=== PATIENT | female | born 1995 | race Caucasian/White ===

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

== ENCOUNTER 2017-03-19 17:32 | Emergency (ER) | payer OTHER ==
--- NOTE | 2017-03-19 18:18 | ED ---
General Adult HPI - General Chief complaint: Abdominal Pain Stated complaint: , ABDOMINAL PAIN Time Seen by Provider: 03/19/17 18:09 Source: patient, RN notes reviewed Mode of arrival: ambulatory Limitations: no limitations - History of Present Illness Initial comments: Patient 21-year-old female who is G 2, P0, approximately one month by last pressure cycle presented today with right-sided abdominal pain uncertain yesterday. Patient states pain comes and goes. It a /10. Patient denies any vaginal bleeding or discharge. Does admit to a miscarriage back in November 2016. Patient says she's not seen OB for this . She states that she is taking prenatals. Denies any complaints or symptoms. Patient denies any recent fever, chills, shortness of breath, chest pain, back pain, nausea or vomiting, numbness or tingling, dysuria or hematuria, constipation or diarrhea, headaches or visual changes, or any other complaints. - Related Data Home Medications Medication Instructions Recorded Confirmed Chewables 1 tab PO DAILY 11/24/16 03/19/17 Previous Rx's Medication Instructions Recorded Cephalexin [Keflex] 500 mg PO Q12HR 7 Days cap 03/19/17 Allergies Allergy/AdvReac Type Severity Reaction Status Date / Time sertraline [From Zoloft] AdvReac Severe Lethargy Verified 03/19/17 18:35 Review of Systems ROS Statement: Those systems with pertinent positive or pertinent negative responses have been documented in the HPI. ROS Other: All systems not noted in ROS Statement are negative. Past Medical History Past Medical History: No Reported History History of Any Multi-Drug Resistant Organisms: None Reported Past Surgical History: No Surgical Hx Reported Additional Past Surgical History / Comment(s): "lazy" eye surgery Past Psychological History: Anxiety, Depression Smoking Status: Current every day smoker Past Alcohol Use History: None Reported Past Drug Use History: None Reported General Exam - General Exam Comments Initial Comments: General: The patient is awake and alert, in no distress, and does not appear acutely ill. Eye: Pupils are equal, round and reactive to light, extra-ocular movements are intact. No nystagmus. There is normal conjunctiva bilaterally. No signs of icterus. Ears, nose, mouth and throat: There are moist mucous membranes and no oral lesions. Neck: The neck is supple, there is no tenderness or JVD. Cardiovascular: There is a regular rate and rhythm. No murmur, rub or gallop is appreciated. Respiratory: Lungs are clear to auscultation, respirations are non-labored, breath sounds are equal. No wheezes, stridor, rales, or rhonchi. Gastrointestinal: Soft, non-distended, non-tender abdomen without masses or organomegaly noted. There is no rebound or guarding present. No CVA tenderness. Bowel sounds are unremarkable. Musculoskeletal: Normal ROM, no tenderness. Strength 5/5. Sensation intact. Pulses equal bilaterally 2+. Neurological: A&O x 3. CN II-XII intact, There are no obvious motor or sensory deficits. Coordination appears grossly intact. Speech is normal. Skin: Skin is warm and dry and no rashes or lesions are noted. Psychiatric: Cooperative, appropriate mood & affect, normal judgment. Limitations: no limitations Course Vital Signs 03/19/17 17:38 Temperature 97.8 F Pulse Rate 89 Respiratory 20 Rate Blood Pressure 122/57 O2 Sat by Pulse 99 Oximetry Medical Decision Making - Medical Decision Making Patient reexamined at this time shows no signs of distress. She is resting comfortably. Patient's blood work has been reviewed unremarkable. Urinalysis does show positive nitrite will be started on antibiotics Keflex. Ultrasound shows additional sac. No heartbeat at this time. Patient last menstrual cycle measuring 4 weeks 5 days currently. At this time patient's abdomen soft nontender. No vaginal bleeding or discharge. Rh+. Patient will be discharged shortly on antibiotics for urinary tract infection advised follow-up over the next 2 days return here to the emergency room if any symptoms increase worsen or for any concerns. - Lab Data Result diagrams: 03/19/17 18:22 03/19/17 18:22 Lab Results 03/19/17 03/19/17 03/19/17 Range/Units 18:22 18:22 18:22 WBC 8.7 (4.0-11.0) k/uL RBC 4.29 (3.80-5.40) m/uL Hgb 12.4 (11.4-16.0) gm/dL Hct 37.2 (34.0-46.0) % MCV 86.6 (80.0-100.0) fL MCH 28.8 (25.0-35.0) pg MCHC 33.3 (31.0-37.0) g/dL RDW 13.2 (11.5-15.5) % Plt Count 257 (150-450) k/uL Neutrophils % 67 % Lymphocytes % 25 % Monocytes % 5 % Eosinophils % 1 % Basophils % 1 % Neutrophils # 5.9 (1.3-7.7) k/uL Lymphocytes # 2.2 (1.0-4.8) k/uL Monocytes # 0.4 (0-1.0) k/uL Eosinophils # 0.1 (0-0.7) k/uL Basophils # 0.1 (0-0.2) k/uL Sodium 137 (137-145) mmol/L Potassium 4.5 (3.5-5.1) mmol/L Chloride 103 (98-107) mmol/L Carbon Dioxide 22 (22-30) mmol/L Anion Gap 12 mmol/L BUN 12 (7-17) mg/dL Creatinine 0.55 (0.52-1.04) mg/dL Est GFR (MDRD) Af Amer >60 (>60 ml/min/1.73 sqM) Est GFR (MDRD) Non-Af >60 (>60 ml/min/1.73 sqM) Glucose 89 (74-99) mg/dL Calcium 9.8 (8.4-10.2) mg/dL Total Bilirubin 0.3 (0.2-1.3) mg/dL AST 22 (14-36) U/L ALT 26 (9-52) U/L Alkaline Phosphatase 74 (38-126) U/L Total Protein 7.4 (6.3-8.2) g/dL Albumin 4.5 (3.5-5.0) g/dL HCG, Quant 2160.2 mIU/mL Urine Color Urine Appearance (Clear) Urine pH (5.0-8.0) Ur Specific [place] (1.001-1.035) Urine Protein (Negative) Urine Glucose (UA) (Negative) Urine Ketones (Negative) Urine Blood (Negative) Urine Nitrite (Negative) Urine Bilirubin (Negative) Urine Urobilinogen (<2.0) mg/dL Ur Leukocyte Esterase (Negative) Urine WBC (0-5) /hpf Ur Squamous Epith Cells (0-4) /hpf Amorphous Sediment (None) /hpf Urine Bacteria (None) /hpf Urine Mucus (None) /hpf Blood Type O Positive Blood Type Recheck No 03/19/17 Range/Units 18:22 WBC (4.0-11.0) k/uL RBC (3.80-5.40) m/uL Hgb (11.4-16.0) gm/dL Hct (34.0-46.0) % MCV (80.0-100.0) fL MCH (25.0-35.0) pg MCHC (31.0-37.0) g/dL RDW (11.5-15.5) % Plt Count (150-450) k/uL Neutrophils % % Lymphocytes % % Monocytes % % Eosinophils % % Basophils % % Neutrophils # (1.3-7.7) k/uL Lymphocytes # (1.0-4.8) k/uL Monocytes # (0-1.0) k/uL Eosinophils # (0-0.7) k/uL Basophils # (0-0.2) k/uL Sodium (137-145) mmol/L Potassium (3.5-5.1) mmol/L Chloride (98-107) mmol/L Carbon Dioxide (22-30) mmol/L Anion Gap mmol/L BUN (7-17) mg/dL Creatinine (0.52-1.04) mg/dL Est GFR (MDRD) Af Amer (>60 ml/min/1.73 sqM) Est GFR (MDRD) Non-Af (>60 ml/min/1.73 sqM) Glucose (74-99) mg/dL Calcium (8.4-10.2) mg/dL Total Bilirubin (0.2-1.3) mg/dL AST (14-36) U/L ALT (9-52) U/L Alkaline Phosphatase (38-126) U/L Total Protein (6.3-8.2) g/dL Albumin (3.5-5.0) g/dL HCG, Quant mIU/mL Urine Color Yellow Urine Appearance Cloudy H (Clear) Urine pH 6.5 (5.0-8.0) Ur Specific [place] 1.022 (1.001-1.035) Urine Protein Negative (Negative) Urine Glucose (UA) Negative (Negative) Urine Ketones Negative (Negative) Urine Blood Negative (Negative) Urine Nitrite Positive H (Negative) Urine Bilirubin Negative (Negative) Urine Urobilinogen <2.0 (<2.0) mg/dL Ur Leukocyte Esterase Trace H (Negative) Urine WBC 5 (0-5) /hpf Ur Squamous Epith Cells 8 H (0-4) /hpf Amorphous Sediment Few H (None) /hpf Urine Bacteria Moderate H (None) /hpf Urine Mucus Occasional H (None) /hpf Blood Type Blood Type Recheck Disposition Clinical Impression: UTI (urinary tract infection), Disposition: HOME SELF-CARE Condition: Good Instructions: Urinary Tract Infection in Women (ED) Additional Instructions: Please use medication as discussed. Please follow-up with PRINCIPAL INVESTIGATOR/family doctor in the next 2 days of symptoms have not improved. Please return to emergency room if the symptoms increase or worsen or for any other concerns. Prescriptions: Cephalexin [Keflex] 500 mg PO Q12HR 7 Days cap Referrals: None,Stated [Primary Care Provider] - 1-2 days Time of Disposition: 19:40
[2017-03-19 18:34] LABS: Basophils # (A) 0.1 k/uL (0-0.2); Basophils % (A) 1 %; Eosinophils # (A) 0.1 k/uL (0-0.7); Eosinophils % (A) 1 %; HCT 37.2 % (34.0-46.0); HGB 12.4 gm/dL (11.4-16.0); Lymphocytes # (A) 2.2 k/uL (1.0-4.8); Lymphocytes % (A) 25 %; MCH 28.8 pg (25.0-35.0); MCHC 33.3 g/dL (31.0-37.0); MCV 86.6 fL (80.0-100.0); Mean Platelet Volume 7.5; Monocytes # (A) 0.4 k/uL (0-1.0); Monocytes % (A) 5 %; Neutrophils # (A) 5.9 k/uL (1.3-7.7); Neutrophils % (A) 67 %; Platelet Count 257 k/uL (150-450); RBC 4.29 m/uL (3.80-5.40); RDW 13.2 % (11.5-15.5); WBC 8.7 k/uL (4.0-11.0)
[2017-03-19 18:52] LABS: Amorphous Sediment,Urine Few /hpf; Appearance,Urine Cloudy (Clear); Bacteria,Urine Moderate /hpf; Bilirubin,Urine Negative (Negative); Blood,Urine Negative (Negative); Color,Urine Yellow; Glucose,Urine (UA) Negative (Negative); Ketones,Urine Negative (Negative); Leukocyte Esterase,Urine Trace (Negative); Mucus,Urine Occasional /hpf; Nitrite,Urine Positive (Negative); PH, Urine 6.5 (5.0-8.0); Protein,Urine Negative (Negative); Specific Gravity,Urine 1.022 (1.001-1.035); Squamous Epithelial Cell,Urine 8 /hpf (0-4); Urobilinogen,Urine <2.0 mg/dL (<2.0); WBC,Urine 5 /hpf (0-5)
[2017-03-19 18:53] LABS: ALT 26 U/L (9-52); AST 22 U/L (14-36); Albumin 4.5 g/dL (3.5-5.0); Alkaline Phosphatase 74 U/L (38-126); Anion Gap 12 mmol/L; Blood Urea Nitrogen 12 mg/dL (7-17); Calcium 9.8 mg/dL (8.4-10.2); Carbon Dioxide 22 mmol/L (22-30); Chloride 103 mmol/L (98-107); Glucose 89 mg/dL (74-99); Potassium 4.5 mmol/L (3.5-5.1); Sodium 137 mmol/L (137-145); Total Bilirubin 0.3 mg/dL (0.2-1.3); Total Protein 7.4 g/dL (6.3-8.2)
[2017-03-19 19:09] LABS: HCG,Quantitative Serum 2160.2 mIU/mL
--- NOTE | 2017-03-19 19:35 | US ---
EXAMINATION TYPE: US OB <=14 wks transvag DATE OF EXAM: 03/19/2017 COMPARISON: NONE CLINICAL HISTORY: Pain. Cramping EXAM PERFORMED: Transvaginal (TV) and Transabdominal (TA) EXAM MEASUREMENTS: GESTATIONAL AGE / DATING Physician Established: Not yet established Dates by LMP: (4 weeks/5 days) EDC: 11/21/2017 Dates by First Scan: No previous this is first scan Dates by Current Scan for: Unable to date by today's study MATERNAL ANATOMY Uterus: 6.5 x 3.5 x 4.8 cm Right Ovary: 2.2 x 1.5 x 1.7 cm Left Ovary: 2.5 x 2.0 x 2.2 cm Post CDS / Adnexa: wnl Presence of free fluid: no Presence of corpus luteal cyst: yes left ovary measuring 1.6 x 1.4 x 1.5 cm Presence of subchorionic bleed: no GESTATION / SURVEY CRL: Not seen at this time MSD: 0.5 cm; too small to calculate date at this time Yolk Sac (normal less than 6mm): Not seen IUP: No IUP seen at this time Date of LMP: 02/14/2017 Beta HcG (if available): Not available at this time IMPRESSION: GESTATIONAL SAC VISUALIZED MEASURING 0.5 CM TOO SMALL TO CALCULATE [place]. NO EMBRYONIC POLE SEEN AT THIS TIME. MEGHANA FROM LMP IS 11/21/2017 [id number].
[2017-03-19 20:17] VITALS: BP 105/51; PULSE 95; RESP 18; TEMP 98.1
== END 2017-03-19 20:17 | disposition home or self-care (01) ==
LOC: EC 17:32
DX: O23.40 Unspecified infection of urinary tract in pregnancy, unspecified trimester (principal); O36.0990 Maternal care for other rhesus isoimmunization, unspecified trimester, not applicable or unspecified; F17.200 Nicotine dependence, unspecified, uncomplicated; Z88.8 Allergy status to other drugs, medicaments and biological substances; Z3A.00 Weeks of gestation of pregnancy not specified; Z79.899 Other long term (current) drug therapy
CPT/HCPCS: 36415; 76801; 76817; 80053; 81001; 84702; 85025; 86900; 86901; 87077; 87086; 87186; 99284

== ENCOUNTER 2017-03-26 17:20 | Emergency (ER) | payer OTHER ==
[2017-03-26 17:25] VITALS: RESP 18
--- NOTE | 2017-03-26 17:46 | ED ---
Female Urogenital HPI - General Chief complaint: Vaginal Bleeding Stated complaint: Possible miscarriage 5 weeks Time Seen by Provider: 03/26/17 17:28 Source: patient, RN notes reviewed Mode of arrival: ambulatory Limitations: no limitations - History of Present Illness Initial comments: This is a 21-year-old female presents emergency Department chief complaint vaginal bleeding in early . Patient states that she is A1. Patient states she had a miscarriage in November. Patient was seen here 1 week ago for abdominal pain and had ultrasound showed possible early gestational sac. Patient To Have Urinary Tract Infection. She States She Finished 4 Days of Antibiotics and Ariton That She Was Breaking out from the antibiotics so she stopped. She denies any dysuria. She states that she noticed some bleeding when she wiped today states that slightly when she urinates but there is been no clots and tissue. She states she has upper abdominal cramping but no lower abdominal pain. Denies any headache, dizziness , chest pain, fever, chills, nausea, vomiting, diarrhea constipation. - Related Data Home Medications Medication Instructions Recorded Confirmed Chewables 1 tab PO DAILY 11/24/16 03/26/17 Ascorbic Acid [Vitamin C] 500 mg PO DAILY 03/26/17 03/26/17 Allergies Allergy/AdvReac Type Severity Reaction Status Date / Time sertraline [From Zoloft] Allergy Severe Rash/Hives Verified 03/26/17 18:28 cephalexin [From Keflex] Allergy Rash/Hives Verified 03/26/17 18:28 Review of Systems ROS Statement: Those systems with pertinent positive or pertinent negative responses have been documented in the HPI. ROS Other: All systems not noted in ROS Statement are negative. Past Medical History Past Medical History: No Reported History History of Any Multi-Drug Resistant Organisms: None Reported Past Surgical History: No Surgical Hx Reported Additional Past Surgical History / Comment(s): "lazy" eye surgery Past Psychological History: Anxiety, Depression Smoking Status: Former smoker Past Alcohol Use History: None Reported Past Drug Use History: None Reported General Exam Limitations: no limitations General appearance: alert, in no apparent distress Respiratory exam: Present: normal lung sounds bilaterally. Absent: respiratory distress, wheezes, rales, rhonchi, stridor Cardiovascular Exam: Present: regular rate, normal rhythm, normal heart sounds. Absent: systolic murmur, diastolic murmur, rubs, gallop, clicks GI/Abdominal exam: Present: soft, normal bowel sounds. Absent: distended, tenderness, guarding, rebound, rigid Back exam: Absent: CVA tenderness (R), CVA tenderness (L) Skin exam: Present: warm, dry, intact, normal color. Absent: rash Course Vital Signs 03/26/17 17:23 Temperature 99.4 F Pulse Rate 85 Respiratory 18 Rate Blood Pressure 117/60 O2 Sat by Pulse 99 Oximetry Medical Decision Making - Medical Decision Making 21-year-old female presented emergency from for vaginal bleeding early . Patient had repeat ultrasound today which showed empty uterus last ultrasound showed early gestational sac. Patient's hCG did double this is over one week. I did explain this concern for miscarriage as uterus is empty at this time. She'll need recheck hCG with her primary care physician or [facility]. She is scheduled to see Dr. Sherley Falcon. Patient does understand this most likely is miscarriage. TRANSIENT respiratory nausea. Patient's urinalysis was reviewed no evidence of urinary tract infection. - Lab Data Lab Results 03/26/17 03/26/17 Range/Units 17:34 17:34 HCG, Quant 4173.9 mIU/mL Urine Color Yellow Urine Appearance Clear (Clear) Urine pH 7.0 (5.0-8.0) Ur Specific [place] 1.016 (1.001-1.035) Urine Protein Negative (Negative) Urine Glucose (UA) Negative (Negative) Urine Ketones Negative (Negative) Urine Blood Moderate H (Negative) Urine Nitrite Negative (Negative) Urine Bilirubin Negative (Negative) Urine Urobilinogen <2.0 (<2.0) mg/dL Ur Leukocyte Esterase Negative (Negative) Urine RBC >182 H (0-5) /hpf Urine WBC 5 (0-5) /hpf Ur Squamous Epith Cells 1 (0-4) /hpf Amorphous Sediment Rare H (None) /hpf Urine Mucus Rare H (None) /hpf Disposition Clinical Impression: Threatened miscarriage in early Disposition: HOME SELF-CARE Condition: Stable Instructions: Threatened Miscarriage (ED) Additional Instructions: Please return to the Emergency Department if symptoms worsen or any other concerns. Referrals: None,Stated [Primary Care Provider] - 1-2 days Tamra Lepe DO [Doctor of Osteopathic Medicine] - 1-2 days Time of Disposition: 18:53
[2017-03-26 18:07] LABS: Amorphous Sediment,Urine Rare /hpf; Appearance,Urine Clear (Clear); Bilirubin,Urine Negative (Negative); Blood,Urine Moderate (Negative); Color,Urine Yellow; Glucose,Urine (UA) Negative (Negative); Ketones,Urine Negative (Negative); Leukocyte Esterase,Urine Negative (Negative); Mucus,Urine Rare /hpf; Nitrite,Urine Negative (Negative); Protein,Urine Negative (Negative); RBC,Urine >182 /hpf (0-5); Specific Gravity,Urine 1.016 (1.001-1.035); Squamous Epithelial Cell,Urine 1 /hpf (0-4); Urobilinogen,Urine <2.0 mg/dL (<2.0); WBC,Urine 5 /hpf (0-5)
--- NOTE | 2017-03-26 18:32 | US ---
EXAMINATION TYPE: US OB <=14 wks transvag DATE OF EXAM: 03/26/2017 COMPARISON: NONE CLINICAL HISTORY: Pain. Spotting EXAM PERFORMED: Transvaginal (TV) and Transabdominal (TA) EXAM MEASUREMENTS: GESTATIONAL AGE / DATING Physician Established: Not yet established Dates by LMP: (5 weeks/5 days) EDC: 11/21/2017 Dates by First Scan: (4 weeks/5 days) EDC: 11/21/2017 Dates by Current Scan for: No IUP seen at this time MATERNAL ANATOMY Uterus: 6.3 x 3.5 x 3.8cm Right Ovary: 2.0 x 1.9 x 1.5 cm Left Ovary: 2.4 x 1.5 x 2.1 cm Post CDS / Adnexa: wnl Presence of free fluid: no GESTATION / SURVEY Beta HcG (if available): Not available at this time No IUP seen at this time. IMPRESSION: Uterus is empty. No adnexal mass or free fluid. No evidence of a gestational sac.
[2017-03-26 18:57] VITALS: BP 122/64; PULSE 97; TEMP 98.1
== END 2017-03-26 18:57 | disposition home or self-care (01) ==
LOC: EC 17:20
DX: O20.0 Threatened abortion (principal); Z3A.01 Less than 8 weeks gestation of pregnancy; Z87.891 Personal history of nicotine dependence; Z79.899 Other long term (current) drug therapy; Z88.1 Allergy status to other antibiotic agents; Z88.8 Allergy status to other drugs, medicaments and biological substances
CPT/HCPCS: 36415; 76801; 76817; 81001; 84702; 87086; 99284

== ENCOUNTER → 2017-03-28 | Outpatient (CLI) | payer OTHER | END | disposition home or self-care (01) | LOC: LABWHC1 07:59 | PROVIDERS: ATTEND Physician Assistant | DX: Z32.01 Encounter for pregnancy test, result positive (principal) | CPT/HCPCS: 36415; 84702 ==

== ENCOUNTER 2017-03-29 15:38 | Emergency (ER) | payer OTHER ==
[2017-03-29 15:55] VITALS: BP 111/69; PULSE 85; RESP 18; TEMP 98.5
--- NOTE | 2017-03-29 16:19 | ED ---
Female Urogenital HPI - General Chief complaint: Vaginal Bleeding Stated complaint: Female Gu Time Seen by Provider: 03/29/17 16:06 Source: patient, RN notes reviewed Mode of arrival: ambulatory Limitations: no limitations - History of Present Illness Initial comments: This a 21-year-old female presents emergency Department with chief complaint of vaginal bleeding. Patient was seen here recently twice for bleeding early . Her last visit she was told that her hCG was not going up appropriately she was to have repeat hCG. She does not know the results of this. Patient states that she occasionally passes a clot but states the bleeding essentially has not worsened. She states she only changes her pad because she feels that she needs to she states that not filling a pad and she is not bleeding through any pads. Patient denies lightheadedness, dizziness, shortness breath, nausea, vomiting. Last Menstrual Period: 02/14/17 - Related Data Home Medications Medication Instructions Recorded Confirmed Chewables 1 tab PO DAILY 11/24/16 03/29/17 Ascorbic Acid [Vitamin C] 500 mg PO DAILY 03/26/17 03/29/17 Allergies Allergy/AdvReac Type Severity Reaction Status Date / Time sertraline [From Zoloft] Allergy Severe Rash/Hives Verified 03/29/17 16:06 cephalexin [From Keflex] Allergy Rash/Hives Verified 03/29/17 16:06 Review of Systems ROS Statement: Those systems with pertinent positive or pertinent negative responses have been documented in the HPI. ROS Other: All systems not noted in ROS Statement are negative. Past Medical History Past Medical History: No Reported History History of Any Multi-Drug Resistant Organisms: None Reported Past Surgical History: No Surgical Hx Reported Additional Past Surgical History / Comment(s): "lazy" eye surgery Past Psychological History: Anxiety, Depression Smoking Status: Former smoker Past Alcohol Use History: None Reported Past Drug Use History: None Reported General Exam Limitations: no limitations General appearance: alert, in no apparent distress Respiratory exam: Present: normal lung sounds bilaterally. Absent: respiratory distress, wheezes, rales, rhonchi, stridor Cardiovascular Exam: Present: regular rate, normal rhythm, normal heart sounds. Absent: systolic murmur, diastolic murmur, rubs, gallop, clicks GI/Abdominal exam: Present: soft, normal bowel sounds. Absent: distended, tenderness, guarding, rebound, rigid Back exam: Absent: CVA tenderness (R), CVA tenderness (L) Course Vital Signs 03/29/17 15:51 Temperature 98.5 F Pulse Rate 85 Respiratory 18 Rate Blood Pressure 111/69 O2 Sat by Pulse 100 Oximetry Medical Decision Making - Medical Decision Making 21-year-old female presented for vaginal bleeding in early . Patient' s hCG did drop from 4000-700. Patient is having active miscarriage she has very mild bleeding her vitals are stable. We did discuss this is normal to expect bleeding and clotting she is to follow-up with her [facility] and return for worsening symptoms. Disposition Clinical Impression: Miscarriage Disposition: HOME SELF-CARE Condition: Stable Instructions: Miscarriage (ED) Additional Instructions: Please return to the Emergency Department if symptoms worsen or any other concerns. Referrals: Rosalie Max MD [Primary Care Provider] - 1-2 days Time of Disposition: 16:19
== END 2017-03-29 16:36 | disposition home or self-care (01) ==
LOC: EC 15:38
DX: O03.9 Complete or unspecified spontaneous abortion without complication (principal); Z87.891 Personal history of nicotine dependence; Z88.8 Allergy status to other drugs, medicaments and biological substances; Z88.1 Allergy status to other antibiotic agents; Z3A.00 Weeks of gestation of pregnancy not specified; Z79.899 Other long term (current) drug therapy
CPT/HCPCS: 99283

== ENCOUNTER 2017-04-21 10:49 | Inpatient (IN) | payer OTHER, MEDICAID ==
--- NOTE | 2017-04-21 11:39 | ED ---
General Adult HPI - General Chief complaint: Psychiatric Symptoms Stated complaint: SUICIDAL Time Seen by Provider: 04/21/17 11:07 Source: patient, family, RN notes reviewed Mode of arrival: ambulatory Limitations: no limitations - History of Present Illness Initial comments: 21-year-old female presents to the emergency department with a chief complaint of suicidal ideation. Patient states that she's been having these thoughts for the past few days. Patient does admit to cutting her arms superficially. Patient is to cause the past but has never been this strong about them. She did recently have a miscarriage about one month ago and is having issues with the father. She states that she currently does not see a counselor or psychiatrist. There is been no other symptoms and the patient. She states or gallop. Has resolved. He has also resolved. Patient denies any recent fever, chills, shortness of breath, chest pain, back pain, abdominal pain, nausea vomiting, numbness or tingling, dysuria or hematuria, constipation or diarrhea, headaches or visual changes, or any other current symptoms. - Related Data Home Medications Medication Instructions Recorded Confirmed Chewables 1 tab PO DAILY 11/24/16 04/21/17 Ascorbic Acid [Vitamin C] 500 mg PO DAILY 03/26/17 04/21/17 Citalopram Hydrobromide [CeleXA] 20 mg PO DAILY PRN 04/21/17 04/21/17 Allergies Allergy/AdvReac Type Severity Reaction Status Date / Time sertraline [From Zoloft] Allergy Severe Rash/Hives Verified 04/21/17 11:20 cephalexin [From Keflex] Allergy Rash/Hives Verified 04/21/17 11:20 Review of Systems ROS Statement: Those systems with pertinent positive or pertinent negative responses have been documented in the HPI. ROS Other: All systems not noted in ROS Statement are negative. Past Medical History Past Medical History: No Reported History History of Any Multi-Drug Resistant Organisms: None Reported Past Surgical History: No Surgical Hx Reported Additional Past Surgical History / Comment(s): "lazy" eye surgery Past Psychological History: Anxiety, Depression Smoking Status: Former smoker Past Alcohol Use History: None Reported Past Drug Use History: None Reported General Exam - General Exam Comments Initial Comments: General: The patient is awake and alert, in no distress, and does not appear acutely ill. Eye: Pupils are equal, round. Ears, nose, mouth and throat: There are moist mucous membranes. Neck: The neck is supple, there is no tenderness. Cardiovascular: There is a regular rate and rhythm. No murmur, rub or gallop is appreciated. Respiratory: Lungs are clear to auscultation, respirations are non-labored, breath sounds are equal. No wheezes, stridor, rales, or rhonchi. Gastrointestinal: Soft, non-distended, non-tender abdomen without masses or organomegaly noted. There is no rebound or guarding present. No CVA tenderness. Bowel sounds are unremarkable. Back: There is no tenderness to palpation in the midline. There is no obvious deformity. No rashes noted. Musculoskeletal: Normal ROM, no tenderness, There is no pedal edema. There is no calf tenderness or swelling. Sensation intact. Pulses equal bilaterally 2+. Neurological: CN II-XII intact, There are no obvious motor or sensory deficits. Coordination appears grossly intact. Speech is normal. Skin: Skin is warm and dry and no rashes or lesions are noted. Patient appears to have superficial lacerations to bilateral forearms. Psychiatric: Cooperative, suicidal ideation, no homicidal ideation Limitations: no limitations Course Vital Signs 04/21/17 10:53 Temperature 99.2 F Pulse Rate 97 Respiratory 18 Rate Blood Pressure 124/66 O2 Sat by Pulse 99 Oximetry Medical Decision Making - Medical Decision Making 21-year-old female presents for suicidal ideation. This time the patient does not appear to be suffering from any acute medical emergencies. This time the patient is cleared to be evaluated by psychiatry. This time patient was evaluated. At this time patient's hCG does appear to be trending down as expected. At this time we did discuss follow-up for this. This time patient will be admitted for continued psychiatric care. - Lab Data Lab Results 04/21/17 04/21/17 Range/Units 11:35 11:35 HCG, Quant 11.2 mIU/mL Urine Opiates Screen Not Detected (NotDetected) Ur Oxycodone Screen Not Detected (NotDetected) Urine Methadone Screen Not Detected (NotDetected) Ur Propoxyphene Screen Not Detected (NotDetected) Ur Barbiturates Screen Not Detected (NotDetected) U Tricyclic Antidepress Not Detected (NotDetected) Ur Phencyclidine Scrn Not Detected (NotDetected) Ur Amphetamines Screen Not Detected (NotDetected) U Methamphetamines Scrn Not Detected (NotDetected) U Benzodiazepines Scrn Not Detected (NotDetected) Urine Cocaine Screen Not Detected (NotDetected) U Marijuana (THC) Screen Not Detected (NotDetected) Disposition Clinical Impression: Depression Disposition: TRANSFER TO PSYCH HOSP/UNIT Referrals: Rosalie aMx MD [Primary Care Provider] - 1-2 days Time of Disposition: 13:16
[2017-04-21 11:56] LABS: Amphetamine Screen,Urine Not Detected (NotDetected); Barbiturate Screen,Urine Not Detected (NotDetected); Benzodiazepines Screen,Urine Not Detected (NotDetected); Cocaine Screen,Urine Not Detected (NotDetected); Methadone Screen, Urine Not Detected (NotDetected); Opiate Screen,Urine Not Detected (NotDetected); Oxycodone Screen, Urine Not Detected (NotDetected); Phencyclidine Screen,Urine Not Detected (NotDetected); Tricyclic Antidepressant,Urine Not Detected (NotDetected); Urn Cannabinoid Scrn Not Detected (NotDetected)
[2017-04-21] MEDS ORDERED: ACETAMINOPHEN TAB 325 MG TAB PO PRN (13:39)
[2017-04-21] MEDS ORDERED: MAG HYDROX/AL HYDROX/SIMETH 30 ML CUP PO PRN (13:39)
[2017-04-21] MEDS ORDERED: MAGNESIUM HYDROXIDE 2,400 MG/10 ML CUP PO PRN (13:39)
[2017-04-21] MEDS: CITALOPRAM HYDROBROMIDE 10 MG TAB PO SCH (14:46)
[2017-04-21 15:45] VITALS: BMI 26.2
[2017-04-21] MEDS ORDERED: hydrOXYzine PAMOATE 25 MG CAP PO PRN (15:59)
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
--- NOTE | 2017-04-21 21:43 | P.MDCNMH ---
History of Present Illness H&P Date: 04/21/17 Chief Complaint: Suicidal ideation This is a 21-year-old female with a known history of depression was brought to the ER after she told that she had suicidal ideation toward her mother. Patient says that for the past few days she is receiving text messages asking her to . Patient states that she's been having these thoughts for the past few days. Patient does admit to cutting her arms superficially. She did recently have a miscarriage about one month ago and is having issues with the father. She states that she currently does not see a counselor or psychiatrist. There is been no other symptoms. Patient is supposed to take antidepressant medications but she has not been taking recently. Patient denies any recent fever, chills, shortness of breath, chest pain, back pain, abdominal pain, nausea vomiting, numbness or tingling, dysuria or hematuria, constipation or diarrhea, headaches or visual changes, or any other current symptoms. Review of Systems Constitutional: Patient denies any fever or chills . No generalized weakness or weight loss. Abdomen: Patient denied nausea vomiting and diarrhea and abdominal pain. Cardiovascular: Patient denies any chest pain or short of breath no palpitations. Respiratory: patient denied any cough is from production. No shortness of breath Neurologic: Patient denied any numbness or tingling headache. Musculoskeletal: Patient denies any complaints of joint swelling or deformity. Skin: Negative Psychiatric: Depressive Endocrine: No heat or cold intolerance. No recent weight gain. Genitourinary: No dysuria or hematuria. All other 14 point ROS negative except the above Past Medical History Past Medical History: No Reported History History of Any Multi-Drug Resistant Organisms: None Reported Past Surgical History: No Surgical Hx Reported Additional Past Surgical History / Comment(s): "lazy" eye surgery Past Psychological History: Anxiety, Depression Smoking Status: Former smoker Past Alcohol Use History: None Reported Past Drug Use History: None Reported Medications and Allergies Home Medications Medication Instructions Recorded Confirmed Type Chewables 1 tab PO DAILY 11/24/16 04/21/17 History Ascorbic Acid [Vitamin C] 500 mg PO DAILY 03/26/17 04/21/17 History Citalopram Hydrobromide [CeleXA] 20 mg PO DAILY PRN 04/21/17 04/21/17 History Allergies Allergy/AdvReac Type Severity Reaction Status Date / Time sertraline [From Zoloft] Allergy Severe Rash/Hives Verified 04/21/17 20:55 cephalexin [From Keflex] Allergy Rash/Hives Verified 04/21/17 20:55 Physical Exam Vitals: Vital Signs Temp Pulse Pulse Resp BP BP Pulse Ox 04/21/17 14:48 99.3 F 113 H 20 131/86 04/21/17 13:21 97.5 F L 104 H 18 159/72 99 04/21/17 10:53 99.2 F 97 18 124/66 99 Intake and Output 04/21/17 04/21/17 04/21/17 06:59 14:59 22:59 Other: Weight 61.008 kg Patient Weight 04/22/17 06:59 Weight 61.008 kg PHYSICAL EXAMINATION: Patient is lying in the bed comfortably, no acute distress, awake alert and oriented.. HEENT: Normocephalic. Neck is supple. Pupils reactive. Nostrils clear. Oral cavity is moist. Ears reveal no drainage. Neck reveals no JVD, carotid bruits, or thyromegaly. CHEST EXAMINATION: Trachea is central. Symmetrical expansion. Lung fung clear to auscultation and percussion. CARDIAC: Normal S1, S2 with no gallops. No murmurs ABDOMEN: Soft. Bowel sounds normal. No organomegaly. No abdominal bruits. Extremities: reveal no edema. No clubbing or cyanosis Neurologically awake, alert, oriented x3 with well-coordinated movements. No focal deficits noted Skin: No rash or skin lesions. Psychiatric: [id number]. Nonsuicidal currently. Musculoskeletal: No joint swelling or deformity. Normal range of motion. Cranial Nerve Examination - Cranial Nerves Cranial Nerve I- Olfactory: Intact Cranial Nerve II- Optic: Intact Cranial Nerve III- Oculomotor: Intact Cranial Nerve IV- Trochlear: Intact Cranial Nerve V- Trigeminal: Intact Cranial Nerve - Abducens: Intact Cranial Nerve VII- Facial: Intact Cranial Nerve VIII- Auditory: Intact Cranial Nerve IX- Glossopharyngeal: Intact Cranial Nerve X- Vagus: Intact Cranial Nerve XI- Accessory: Intact Cranial Nerve XII- Hypoglossal: Intact Assessment and Plan Assessment: Depression with suicidal ideation Hallucinations Noncompliant with antidepressant medications Recent miscarriage Plan: Patient will be continued on current antidepressant medication as per psychiatric recommendations. Will check CBC and BMP and TSH level. Follow up closely. Further recommendations based on the clinical course. Thank you for your consult
[2017-04-22] MEDS: CITALOPRAM HYDROBROMIDE 10 MG TAB PO SCH (09:04)
[2017-04-22 09:49] LABS: Basophils % (A) 0 %; Eosinophils % (A) 0 %; HCT 41.4 % (34.0-46.0); HGB 13.5 gm/dL (11.4-16.0); Lymphocytes # (A) 1.5 k/uL (1.0-4.8); Lymphocytes % (A) 13 %; MCH 29.6 pg (25.0-35.0); MCHC 32.5 g/dL (31.0-37.0); MCV 90.9 fL (80.0-100.0); Mean Platelet Volume 6.9; Monocytes # (A) 0.4 k/uL (0-1.0); Monocytes % (A) 3 %; Neutrophils # (A) 10.2 k/uL (1.3-7.7); Neutrophils % (A) 83 %; Platelet Count 246 k/uL (150-450); RBC 4.56 m/uL (3.80-5.40); RDW 13.3 % (11.5-15.5); WBC 12.3 k/uL (4.0-11.0)
[2017-04-22 10:11] LABS: ALT 23 U/L (9-52); AST 20 U/L (14-36); Albumin 4.8 g/dL (3.5-5.0); Alkaline Phosphatase 84 U/L (38-126); Anion Gap 13 mmol/L; Blood Urea Nitrogen 20 mg/dL (7-17); Calcium 10.4 mg/dL (8.4-10.2); Carbon Dioxide 24 mmol/L (22-30); Chloride 105 mmol/L (98-107); Cholesterol 140 mg/dL (<200); Glucose 93 mg/dL (74-99); HDL Cholesterol 48 mg/dL (40-60); LDL Cholesterol,Calculated 80 mg/dL (0-99); Potassium 4.4 mmol/L (3.5-5.1); Sodium 142 mmol/L (137-145); Total Bilirubin 0.6 mg/dL (0.2-1.3); Total Protein 7.8 g/dL (6.3-8.2); Triglycerides 59 mg/dL (<150)
[2017-04-22 16:36] LABS: Hemoglobin A1C 4.8 % (4.0-6.0)
--- NOTE | 2017-04-22 18:09 | P.PN ---
Progress Note - Text Progress Note Date: 04/22/17 Interval History: Patient is a 21-year-old female who was seen today and she reports that she is sleeping and eating well. She states that she has not had any thoughts of cutting herself and is feeling calm her. She states that she has been attending groups and they have been helpful. She states that she sometimes is anxious because she is missing being at home. She states that she is not having any suicidal thoughts. She states that she used Vistaril last evening with good results. Patient discussed that she has thought of plans to react to text messages instead of cutting and states that she will just ignore or block them. Mental Status: Appearance/Attitude: Patient is appropriately dressed, makes good eye contact and is cooperative. Behavior: Patient does not display any psychomotor agitation or retardation. Speech/Language: Patient's speech is spontaneous, of normal volume and she is coherent Thought Process: Patient was goal-directed there is no evidence of loose associations or flight of ideas. Thought Content: Patient denies any auditory or visual hallucinations and no delusions or paranoid ideation were elicited. Patient reports that she is no longer having thoughts of cutting herself states that she is feeling calm her. Patient states she is trying to develop better ways of coping with her anxiety as well as coping with text messages that are upsetting. Patient reported she is sleeping and eating well. Suicidal/Homicidal Ideation: Patient denies any current suicidal or homicidal ideation Sensorium/Cognition: Patient is alert and oriented to person, place, time and her recent and remote memory were grossly intact. Mood/Affect: Patient's mood is euthymic and her affect is appropriate Insight/Judgment: Patient's insight and judgment are fair Assessment: Patient reports that she is no longer feeling as overwhelmed, no longer having thoughts of cutting herself and states that she is trying to think of better coping skills when she is anxious or upset. Patient states she is not having any side effects from the medication. She is sleeping and eating well. Patient has been attending groups and participating and finds it helpful. Plan: Patient will continue on Celexa 10 mg to target her depression and anxiety as well as Vistaril 25 mg 3 times a day on an as-needed basis for anxiety. Patient reports that she is feeling calm her no longer having thoughts of cutting herself and she and I discussed discharge in the next several days and she was agreeable with this. Patient was also agreeable to follow-up counseling after discharge.
[2017-04-23] MEDS: CITALOPRAM HYDROBROMIDE 10 MG TAB PO SCH (08:56)
--- NOTE | 2017-04-23 16:15 | P.PN ---
Progress Note - Text Progress Note Date: 04/23/17 Interval History: Patient is a 21-year-old female who was seen today and she reports that she is feeling well. She states that she has no thoughts of cutting herself and no suicidal ideation. She states that she is attending groups and activities. She states that she slept well last evening. Patient states that everybody that is at home has blocked her male friend so that he can no longer get in touch with her. She states that she in the past would block him but he would get in touch with her through other friends. She was glad that this had been done. Patient reports that she is feeling calm her and has not been feeling anxious. She reports no side effects from the medication. She states that she has not requested any Vistaril since taking it on one occasion. Mental Status: Appearance/Attitude: Patient was neatly dressed, made good eye contact and was cooperative. Behavior: Patient did not exhibit any psychomotor agitation or retardation. Speech/Language: Patient's speech was spontaneous and of normal volume and she was coherent. Thought Process: Patient was goal-directed and there is no evidence of loose associations or flight of ideas. Thought Content: Patient denied any auditory or visual hallucinations no delusions or paranoid ideation were elicited. Patient states that she is feeling calm her, not anxious or overwhelmed. She states that she is sleeping and eating well. She reports no desire to cut Suicidal/Homicidal Ideation: Patient denies any current suicidal or homicidal ideation. Sensorium/Cognition: Patient is alert and oriented to person, place, and time and her recent and remote memory were grossly intact. Mood/Affect: Patient's mood is pleasant and her affect is appropriate. Insight/Judgment: Patient's insight and judgment are fair. Assessment: Patient reports doing better, feeling calm her and having no desire to cut. She states that she has been attending groups and activities and participating in them. She reports that at home everyone has blocked her male friend and she is relieved that she will allow longer be getting texts from him. Patient states that she is sleeping and eating well. She states she is not feeling anxious. Patient reported no side effects from the medication. Plan: Patient will continue on Celexa 10 mg to target her anxiety and depression. Patient and I discussed speaking with her [employer] ATTENDANT regarding control options. Patient and I also discussed discharge tomorrow and she was agreeable with this. Patient is eager to follow-up in outpatient counseling.
[2017-04-24 04:00] VITALS: BP 118/59; PULSE 80; RESP 16; TEMP 98.7
[2017-04-24] MEDS: CITALOPRAM HYDROBROMIDE 10 MG TAB PO SCH (09:11)
--- NOTE | 2017-04-24 12:11 | P.DS ---
Providers Date of admission: 04/21/17 13:21 Expected date of discharge: 04/24/17 Attending physician: Socorro Baez MD Consults: 04/21/17 13:39 Consult Physician Routine Consulting Provider: Jane Camarena Consult Reason/Comments: H&P Do you want consulting provider notified?: Yes Primary care physician: Winter Yao [facility] Course: Discharge Diagnosis: Adjustment disorder with mixed anxiety and depressed mood. Reason for Admission: Patient is a 21-year-old female who presented to the emergency room with her mother after stating that she wanted to and was cutting herself. Patient states that she was doing well until yesterday when she received text messages telling her to go kill herself and that the father of her last was glad that she had lost the baby and it would make everyone happy if she killed herself. She states that she also got a text message from the girlfriend of the father of her-2 pregnancies and told her to leave him alone. She stated that this made her think of wanting to but she began cutting herself because she likes the pain and not an attempt to kill herself. She states that she had been sleeping and eating okay until yesterday when she lost her appetite. Patient states that she did not want to go home from the emergency room because she feared she would begin cutting herself again. She states that she's been cutting herself on and off since the age of 18 and it's usually in relationship to some problems that she's had with boyfriends. Patient states that she had a miscarriage in November 2016 and in 03/29/2017 both pregnancies were from a male friend that she states she was not dating but they were good friends. Patient reports that she was on control but did not take it consistently. Patient reports that she attempted suicide about a year ago took an overdose was seen in the emergency room and discharged and thinks she was placed on Celexa at that time which she is only taken on and off on an as-needed basis. Patient states that she also was seen by a counselor in 2015 because she felt depressed and wasn't talking to people. Patient reports no inpatient psychiatric history. Patient does not endorse any symptoms of psychosis, dayron and states that she's been depressed in the past and when she becomes anxious she feels overwhelmed and this is also when she begins cutting. She states that she felt overwhelmed yesterday after receiving the text messages and begun cutting to alleviate the anxiety and because she enjoys the pain. Mental status on admission: Appearance/Attitude: Patient was neatly and appropriately dressed, made good eye contact and was cooperative. Behavior: Patient did not display any psychomotor agitation or retardation. Speech/Language: Patient's speech was slightly garbled due to a speech difficulty that she has had, spoke in a normal volume and she was coherent. Thought Process: Patient was goal-directed and was no evidence of loose associations or flight of ideas. Thought Content: Patient denied any auditory or visual hallucinations and no delusions or paranoid ideation were elicited. Patient reports that she was doing well until yesterday when she received text messages saying that she should go kill herself, that her friend was glad she had lost the baby as well as a girlfriend of her friends telling her to stay away from him. She states she became anxious and overwhelmed and began cutting herself. She states that she has been sleeping well and her appetite was well until yesterday when she was in eating that much. She reports that she was not attempting to cut herself to kill herself but she did not feel safe returning home. Suicidal/Homicidal Ideation: Patient denies any current suicidal or homicidal ideation. Sensorium/Cognition: Patient is alert and oriented to person, place, and time. Recent and remote memory are grossly intact. Mood/Affect: Patient's mood is slightly depressed and anxious and her affect is appropriate. Insight/Judgment: Patient's insight and judgment are fair. Hospital Course: Patient was admitted on a voluntary basis, placed on routine observation and routine laboratory studies as well as a medical consultation was obtained. Patient was also ordered group and activity therapy. Patient and I discussed the use of Celexa to assist with her symptoms of depression as well as her anxiety. Patient discussed that she cut herself when she felt overwhelmed and not in an attempt to commit suicide but because she liked the pain. Patient has a history of depression in the past and stated that she was agreeable to starting medication. Patient was begun on Celexa 10 mg in the morning and was also begun on Vistaril 25 mg 3 times a day and an as-needed basis for anxiety. Patient took the Vistaril on one occasion reported a good response. Patient did well on the unit participating in attending groups and activities and stated that she was no longer feeling depressed or overwhelmed. She reported that she wasn't feeling anxious and states that she has had no impulses to cut herself. She denied any suicidal ideation. A family meeting was held which went well and the patient reported that all of the people that live in her home have now blocked this male friend and she was glad that she would not have to deal with his texts her phone calls in the future. 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 Allergies sertraline [From Zoloft] Allergy (Severe, Verified 04/21/17 20:55) Rash/Hives cephalexin [From Keflex] Allergy (Verified 04/21/17 20:55) Rash/Hives Lab Results 04/21/17 04/21/17 04/22/17 Range/Units 11:35 11:35 09:30 WBC (4.0-11.0) k/uL RBC (3.80-5.40) m/uL Hgb (11.4-16.0) gm/dL Hct (34.0-46.0) % MCV (80.0-100.0) fL MCH (25.0-35.0) pg MCHC (31.0-37.0) g/dL RDW (11.5-15.5) % Plt Count (150-450) k/uL Neutrophils % % Lymphocytes % % Monocytes % % Eosinophils % % Basophils % % Neutrophils # (1.3-7.7) k/uL Lymphocytes # (1.0-4.8) k/uL Monocytes # (0-1.0) k/uL Eosinophils # (0-0.7) k/uL Basophils # (0-0.2) k/uL Sodium (137-145) mmol/L Potassium (3.5-5.1) mmol/L Chloride (98-107) mmol/L Carbon Dioxide (22-30) mmol/L Anion Gap mmol/L BUN (7-17) mg/dL Creatinine (0.52-1.04) mg/dL Est GFR (MDRD) Af Amer (>60 ml/min/1.73 sqM) Est GFR (MDRD) Non-Af (>60 ml/min/1.73 sqM) Glucose (74-99) mg/dL Estimated Ave Glu mg/dL 91 Hemoglobin A1c 4.8 (4.0-6.0) % Calcium (8.4-10.2) mg/dL Total Bilirubin (0.2-1.3) mg/dL AST (14-36) U/L ALT (9-52) U/L Alkaline Phosphatase (38-126) U/L Total Protein (6.3-8.2) g/dL Albumin (3.5-5.0) g/dL Triglycerides (<150) mg/dL Cholesterol (<200) mg/dL LDL Cholesterol, Calc (0-99) mg/dL HDL Cholesterol (40-60) mg/dL TSH (0.465-4.680) mIU/L HCG, Quant 11.2 mIU/mL Urine HCG, Qual (Not Detectd) Urine Opiates Screen Not Detected (NotDetected) Ur Oxycodone Screen Not Detected (NotDetected) Urine Methadone Screen Not Detected (NotDetected) Ur Propoxyphene Screen Not Detected (NotDetected) Ur Barbiturates Screen Not Detected (NotDetected) U Tricyclic Antidepress Not Detected (NotDetected) Ur Phencyclidine Scrn Not Detected (NotDetected) Ur Amphetamines Screen Not Detected (NotDetected) U Methamphetamines Scrn Not Detected (NotDetected) U Benzodiazepines Scrn Not Detected (NotDetected) Urine Cocaine Screen Not Detected (NotDetected) U Marijuana (THC) Screen Not Detected (NotDetected) 04/22/17 04/22/17 04/23/17 Range/Units 09:30 09:30 08:50 WBC 12.3 H (4.0-11.0) k/uL RBC 4.56 (3.80-5.40) m/uL Hgb 13.5 (11.4-16.0) gm/dL Hct 41.4 (34.0-46.0) % MCV 90.9 (80.0-100.0) fL MCH 29.6 (25.0-35.0) pg MCHC 32.5 (31.0-37.0) g/dL RDW 13.3 (11.5-15.5) % Plt Count 246 (150-450) k/uL Neutrophils % 83 % Lymphocytes % 13 % Monocytes % 3 % Eosinophils % 0 % Basophils % 0 % Neutrophils # 10.2 H (1.3-7.7) k/uL Lymphocytes # 1.5 (1.0-4.8) k/uL Monocytes # 0.4 (0-1.0) k/uL Eosinophils # 0.0 (0-0.7) k/uL Basophils # 0.0 (0-0.2) k/uL Sodium 142 (137-145) mmol/L Potassium 4.4 (3.5-5.1) mmol/L Chloride 105 (98-107) mmol/L Carbon Dioxide 24 (22-30) mmol/L Anion Gap 13 mmol/L BUN 20 H (7-17) mg/dL Creatinine 0.86 (0.52-1.04) mg/dL Est GFR (MDRD) Af Amer >60 (>60 ml/min/1.73 sqM) Est GFR (MDRD) Non-Af >60 (>60 ml/min/1.73 sqM) Glucose 93 (74-99) mg/dL Estimated Ave Glu mg/dL Hemoglobin A1c (4.0-6.0) % Calcium 10.4 H (8.4-10.2) mg/dL Total Bilirubin 0.6 (0.2-1.3) mg/dL AST 20 (14-36) U/L ALT 23 (9-52) U/L Alkaline Phosphatase 84 (38-126) U/L Total Protein 7.8 (6.3-8.2) g/dL Albumin 4.8 (3.5-5.0) g/dL Triglycerides 59 (<150) mg/dL Cholesterol 140 (<200) mg/dL LDL Cholesterol, Calc 80 (0-99) mg/dL HDL Cholesterol 48 (40-60) mg/dL TSH 0.983 (0.465-4.680) mIU/L HCG, Quant mIU/mL Urine HCG, Qual Not Detected (Not Detectd) Urine Opiates Screen (NotDetected) Ur Oxycodone Screen (NotDetected) Urine Methadone Screen (NotDetected) Ur Propoxyphene Screen (NotDetected) Ur Barbiturates Screen (NotDetected) U Tricyclic Antidepress (NotDetected) Ur Phencyclidine Scrn (NotDetected) Ur Amphetamines Screen (NotDetected) U Methamphetamines Scrn (NotDetected) U Benzodiazepines Scrn (NotDetected) Urine Cocaine Screen (NotDetected) U Marijuana (THC) Screen (NotDetected) Discharge Mental Status: [Appearance/Attitude: Patient is neatly and appropriately dressed, makes good eye contact and is cooperative. Behavior: Patient does not exhibit any psychomotor agitation or retardation. Speech/Language: Patient's speech is spontaneous, of normal volume and she is coherent. Thought Process: Patient is goal-directed and there is no evidence of loose associations or flight of ideas. Thought Content: Patient patient denies any auditory or visual hallucinations and no delusions or paranoid ideation were elicited. Patient reports she is no longer feeling overwhelmed, no longer having impulses to cut herself. She states that she is sleeping and eating well and she reported no anxiety. Suicidal/Homicidal Ideation: Patient denies any current suicidal or homicidal ideation. Sensorium/Cognition: Patient is alert and oriented to person, place, time and her recent and remote memory are grossly intact. Mood/Affect: Patient's mood was pleasant and her affect was appropriate. Insight/Judgment: Patient's insight and judgment are fair. Risk Assessment: Patient's risk for self-harm as low as patient has no prior history of suicide attempts and has no history of substance or alcohol use. Discharge Plan: Patient will return to home to live with her mother, she will continue on Celexa 10 mg in the morning and Vistaril 25 mg 3 times a day as needed for anxiety and will be given prescriptions for these. [facility] Patient discussed different coping strategies, stating that her male friend has been blocked from contacting her or anyone else in the house and she is relieved with this. Patient was encouraged to be compliant with medication and attend counseling sessions. 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 Patient Condition at Discharge: Stable Plan - Discharge Summary Discharge Rx Participant: No New Discharge Prescriptions: New Citalopram Hydrobromide [CeleXA] 10 mg PO DAILY #14 tab hydrOXYzine PAMOATE [Vistaril] 25 mg PO Q8HR PRN #20 cap PRN Reason: Anxiety Continue Chewables 1 tab PO DAILY Ascorbic Acid [Vitamin C] 500 mg PO DAILY Discontinued Citalopram Hydrobromide [CeleXA] 20 mg PO DAILY PRN PRN Reason: Anxiety Discharge Medication List Chewables 1 tab PO DAILY 11/24/16 [History] Ascorbic Acid [Vitamin C] 500 mg PO DAILY 03/26/17 [History] Citalopram Hydrobromide [CeleXA] 10 mg PO DAILY #14 tab 04/24/17 [Rx] hydrOXYzine PAMOATE [Vistaril] 25 mg PO Q8HR PRN #20 cap 04/24/17 [Rx] Follow up Appointment(s)/Referral(s): [facility] - 04/28/17 1:30 pm (Spoke with Liliane, has appointment with Noreen on 04/28/2017 at 1400, patient is to come 30 minutes early to go over paper work, 1330.) Rosalie Max MD [Primary Care Provider] - 1-2 days Discharge Disposition: HOME SELF-CARE
== END 2017-04-24 13:50 | disposition home or self-care (01) | DRG 882 ==
LOC: EC 10:49 → 3MHU 13:21
PROVIDERS: ADMIT Psychiatry & Neurology Psychiatry; ATTEND Psychiatry & Neurology Psychiatry
DX: F43.23 Adjustment disorder with mixed anxiety and depressed mood (principal); R45.851 Suicidal ideations; Z91.14 Patient's other noncompliance with medication regimen; X78.9XXA Intentional self-harm by unspecified sharp object, initial encounter; Z79.899 Other long term (current) drug therapy; Z87.891 Personal history of nicotine dependence; Z91.5 Personal history of self-harm; Z91.410 Personal history of adult physical and sexual abuse; Z88.1 Allergy status to other antibiotic agents; Z88.8 Allergy status to other drugs, medicaments and biological substances; Z81.8 Family history of other mental and behavioral disorders
CPT/HCPCS: 36415; 80053; 80061; 80306; 81025; 82075; 83036; 84443; 84702; 85025; 99285

== ENCOUNTER 2017-07-01 22:23 | Emergency (ER) | payer OTHER ==
[2017-07-01 22:31] VITALS: BP 124/62; PULSE 112; RESP 20; TEMP 98.1
[2017-07-02] MEDS ORDERED: SODIUM CHLORIDE 0.9% 1,000 ML IV STA ×2 (00:36→02:17)
[2017-07-02] MEDS ORDERED: METOCLOPRAMIDE 5 MG/ML 2 ML VIAL IVP STA (00:36)
[2017-07-02 01:09] LABS: Basophils % (A) 0 %; Eosinophils # (A) 0.1 k/uL (0-0.7); Eosinophils % (A) 1 %; HCT 31.4 % (34.0-46.0); HGB 11.5 gm/dL (11.4-16.0); Hyperchromasia Slight; Lymphocytes # (A) 1.8 k/uL (1.0-4.8); Lymphocytes % (A) 25 %; MCH 30.4 pg (25.0-35.0); MCHC 36.5 g/dL (31.0-37.0); MCV 83.2 fL (80.0-100.0); Mean Platelet Volume 6.5; Monocytes # (A) 0.4 k/uL (0-1.0); Monocytes % (A) 6 %; Neutrophils % (A) 67 %; Platelet Count 225 k/uL (150-450); RBC 3.77 m/uL (3.80-5.40); RDW 12.8 % (11.5-15.5); WBC 7.4 k/uL (4.0-11.0)
[2017-07-02 01:13] LABS: Appearance,Urine Clear (Clear); Bilirubin,Urine Negative (Negative); Blood,Urine Negative (Negative); Color,Urine Yellow; Glucose,Urine (UA) Negative (Negative); Ketones,Urine 4+ (Negative); Leukocyte Esterase,Urine Moderate (Negative); Mucus,Urine Occasional /hpf; Nitrite,Urine Negative (Negative); Protein,Urine 1+ (Negative); RBC,Urine 2 /hpf (0-5); Squamous Epithelial Cell,Urine 1 /hpf (0-4); WBC,Urine 6 /hpf (0-5)
[2017-07-02 01:18] LABS: ALT 11 U/L (9-52); AST 15 U/L (14-36); Alkaline Phosphatase 54 U/L (38-126); Anion Gap 16 mmol/L; Blood Urea Nitrogen 11 mg/dL (7-17); Calcium 9.4 mg/dL (8.4-10.2); Carbon Dioxide 19 mmol/L (22-30); Chloride 105 mmol/L (98-107); Glucose 90 mg/dL (74-99); Potassium 3.7 mmol/L (3.5-5.1); Sodium 140 mmol/L (137-145); Total Bilirubin 0.2 mg/dL (0.2-1.3); Total Protein 6.5 g/dL (6.3-8.2)
--- NOTE | 2017-07-02 01:30 | ED ---
General Adult HPI - General Chief complaint: Dizziness Stated complaint: lightheaded/vomited blood Time Seen by Provider: 07/02/17 00:30 Source: patient, RN notes reviewed Mode of arrival: ambulatory Limitations: no limitations - History of Present Illness Initial comments: Patient is a 21-year-old female who is 13 weeks by ultrasound presenting to the emergency room today with a chief complaint of feeling lightheaded and dizzy. Patient states that she's had some symptoms of nausea vomiting. She states that she has followed her OB was told that she had a urinary tract infection. She states she has not started the antibiotics she just picked him up today. Patient denies any other complaints or symptoms at this time. Patient denies any recent fever, chills, shortness of breath, chest pain, back pain, numbness or tingling, dysuria or hematuria, constipation or diarrhea, headaches or visual changes, or any other complaints. - Related Data Home Medications Medication Instructions Recorded Confirmed Chewables 1 tab PO DAILY 11/24/16 04/21/17 Ascorbic Acid [Vitamin C] 500 mg PO DAILY 03/26/17 04/21/17 Previous Rx's Medication Instructions Recorded Citalopram Hydrobromide [CeleXA] 10 mg PO DAILY #14 tab 04/24/17 hydrOXYzine PAMOATE [Vistaril] 25 mg PO Q8HR PRN #20 cap 04/24/17 Allergies Allergy/AdvReac Type Severity Reaction Status Date / Time sertraline [From Zoloft] Allergy Severe Rash/Hives Verified 07/01/17 22:31 cephalexin [From Keflex] Allergy Rash/Hives Verified 07/01/17 22:31 Review of Systems ROS Statement: Those systems with pertinent positive or pertinent negative responses have been documented in the HPI. ROS Other: All systems not noted in ROS Statement are negative. Past Medical History Past Medical History: No Reported History History of Any Multi-Drug Resistant Organisms: None Reported Past Surgical History: No Surgical Hx Reported Additional Past Surgical History / Comment(s): "lazy" eye surgery Past Psychological History: Anxiety, Depression Smoking Status: Former smoker Past Alcohol Use History: None Reported Past Drug Use History: None Reported General Exam - General Exam Comments Initial Comments: General: The patient is awake and alert, in no distress, and does not appear acutely ill. Eye: Pupils are equal, round and reactive to light, extra-ocular movements are intact. No nystagmus. There is normal conjunctiva bilaterally. No signs of icterus. Ears, nose, mouth and throat: There are moist mucous membranes and no oral lesions. Neck: The neck is supple, there is no tenderness or JVD. Cardiovascular: There is a regular rate and rhythm. No murmur, rub or gallop is appreciated. Respiratory: Lungs are clear to auscultation, respirations are non-labored, breath sounds are equal. No wheezes, stridor, rales, or rhonchi. Gastrointestinal: Soft, non-distended, non-tender abdomen without masses or organomegaly noted. There is no rebound or guarding present. No CVA tenderness. Musculoskeletal: Normal ROM, no tenderness. Strength 5/5. Sensation intact. Pulses equal bilaterally 2+. Neurological: A&O x 3. CN II-XII intact, There are no obvious motor or sensory deficits. Coordination appears grossly intact. Speech is normal. Skin: Skin is warm and dry and no rashes or lesions are noted. Psychiatric: Cooperative, appropriate mood & affect, normal judgment. Limitations: no limitations Course Vital Signs 07/01/17 22:29 Temperature 98.1 F Pulse Rate 112 H Respiratory 20 Rate Blood Pressure 124/62 O2 Sat by Pulse 99 Oximetry EKG Findings - EKG Comments: EKG Findings:: EKG performed at 2240: Shows sinus tachycardia 107 bpm CO interval 134 QRS 70. QT/QTC 328/437. No acute ST changes. Medical Decision Making - Medical Decision Making Patient's heart tones were in the 150s. Case discussed in detail with attending physician Dr. Constantino. Patient reexamined at this time shows no signs of distress resting comfortably. Patient feeling much better at this time. Patient's labs been reviewed. Patient's urinalysis shows 4+ ketones. Was discussed with patient about a second liter bolus here the emergency room in repeating her urine. She states she is very tired at this time. Her mother is at bedside stating that she needs to get home to get up to go to work soon. They state that the feeling better and would like to be discharged without second liter bolus or repeat labs they're advised follow-up with her PROMOTIONS ASSISTANT over the next 2 days. - Lab Data Result diagrams: 07/02/17 00:55 07/02/17 00:55 Lab Results 07/02/17 07/02/17 07/02/17 Range/Units 00:55 00:55 00:55 WBC 7.4 (4.0-11.0) k/uL RBC 3.77 L (3.80-5.40) m/uL Hgb 11.5 (11.4-16.0) gm/dL Hct 31.4 L (34.0-46.0) % MCV 83.2 (80.0-100.0) fL MCH 30.4 (25.0-35.0) pg MCHC 36.5 (31.0-37.0) g/dL RDW 12.8 (11.5-15.5) % Plt Count 225 (150-450) k/uL Neutrophils % 67 % Lymphocytes % 25 % Monocytes % 6 % Eosinophils % 1 % Basophils % 0 % Neutrophils # 5.0 (1.3-7.7) k/uL Lymphocytes # 1.8 (1.0-4.8) k/uL Monocytes # 0.4 (0-1.0) k/uL Eosinophils # 0.1 (0-0.7) k/uL Basophils # 0.0 (0-0.2) k/uL Hyperchromasia Slight Sodium 140 (137-145) mmol/L Potassium 3.7 (3.5-5.1) mmol/L Chloride 105 (98-107) mmol/L Carbon Dioxide 19 L (22-30) mmol/L Anion Gap 16 mmol/L BUN 11 (7-17) mg/dL Creatinine 0.50 L (0.52-1.04) mg/dL Est GFR (CKD-EPI)AfAm >90 (>60 ml/min/1.73 sqM) Est GFR (CKD-EPI)NonAf >90 (>60 ml/min/1.73 sqM) Glucose 90 (74-99) mg/dL Calcium 9.4 (8.4-10.2) mg/dL Total Bilirubin 0.2 (0.2-1.3) mg/dL AST 15 (14-36) U/L ALT 11 (9-52) U/L Alkaline Phosphatase 54 (38-126) U/L Total Protein 6.5 (6.3-8.2) g/dL Albumin 4.0 (3.5-5.0) g/dL Urine Color Yellow Urine Appearance Clear (Clear) Urine pH 6.0 (5.0-8.0) Ur Specific [place] 1.030 (1.001-1.035) Urine Protein 1+ H (Negative) Urine Glucose (UA) Negative (Negative) Urine Ketones 4+ H (Negative) Urine Blood Negative (Negative) Urine Nitrite Negative (Negative) Urine Bilirubin Negative (Negative) Urine Urobilinogen 2.0 (<2.0) mg/dL Ur Leukocyte Esterase Moderate H (Negative) Urine RBC 2 (0-5) /hpf Urine WBC 6 H (0-5) /hpf Ur Squamous Epith Cells 1 (0-4) /hpf Urine Mucus Occasional H (None) /hpf Disposition Clinical Impression: Hyperemesis gravidarum Disposition: HOME SELF-CARE Condition: Good Instructions: Hyperemesis Gravidarum (ED) Additional Instructions: Please follow-up with PROMOTIONS ASSISTANT in the next 1-2 days. Please return to emergency room if the symptoms increase or worsen or for any other concerns. Is patient prescribed a controlled substance at d/c from ED?: No Referrals: Rosalie Max MD [Primary Care Provider] - 1-2 days Time of Disposition: 02:22
[2017-07-02 02:29] LABS: HCG,Quantitative Serum 71607.8 mIU/mL
== END 2017-07-02 03:07 | disposition home or self-care (01) ==
LOC: EC 22:23
DX: O21.0 Mild hyperemesis gravidarum (principal); O99.89 Other specified diseases and conditions complicating pregnancy, childbirth and the puerperium; R42 Dizziness and giddiness; Z3A.13 13 weeks gestation of pregnancy; Z87.891 Personal history of nicotine dependence; Z79.899 Other long term (current) drug therapy; Z88.1 Allergy status to other antibiotic agents; Z88.8 Allergy status to other drugs, medicaments and biological substances; Z53.29 Procedure and treatment not carried out because of patient's decision for other reasons
CPT/HCPCS: 36415; 93005; 80053; 85025; 81001; 84702; 87086; 99284; 96374; 96361 ×2; J2765

== ENCOUNTER 2017-07-22 18:24 | Emergency (ER) | payer OTHER ==
[2017-07-22 18:30] VITALS: RESP 18
[2017-07-22] MEDS ORDERED: SODIUM CHLORIDE 0.9% 1,000 ML IV ONE (18:58)
--- NOTE | 2017-07-22 19:09 | ED ---
Female Urogenital HPI - General Chief complaint: Vaginal Bleeding Stated complaint: female gu, and bleeding Time Seen by Provider: 07/22/17 18:38 Source: patient Mode of arrival: ambulatory Limitations: no limitations - History of Present Illness Initial comments: Patient is a female who presents with a chief complaint of vaginal bleeding. Patient states that she is 16 weeks and 1 day . Patient states that she noticed vaginal bleeding today, she noticed a dime size area of blood on the sheets on her bed. Patient denies pain, she cannot identify an inciting incident. There are no aggravating or alleviating factors. Patient states she was seen by her UNDERWRITING OPERATIONS MANAGER today and states that cardiac Dopplers were within normal limits, no ultrasound was performed today. - Related Data Home Medications Medication Instructions Recorded Confirmed Chewables 1 tab PO DAILY 11/24/16 07/22/17 Allergies Allergy/AdvReac Type Severity Reaction Status Date / Time sertraline [From Zoloft] Allergy Severe Rash/Hives Verified 07/22/17 18:43 cephalexin [From Keflex] Allergy Rash/Hives Verified 07/22/17 18:43 Review of Systems ROS Statement: Those systems with pertinent positive or pertinent negative responses have been documented in the HPI. ROS Other: All systems not noted in ROS Statement are negative. Genitourinary: Reports: other (Vaginal bleeding) Past Medical History Past Medical History: No Reported History History of Any Multi-Drug Resistant Organisms: None Reported Past Surgical History: No Surgical Hx Reported Additional Past Surgical History / Comment(s): "lazy" eye surgery Past Psychological History: Anxiety, Depression Smoking Status: Former smoker Past Alcohol Use History: None Reported Past Drug Use History: None Reported General Exam Limitations: no limitations General appearance: alert, in no apparent distress Head exam: Present: atraumatic, normocephalic Eye exam: Present: normal appearance ENT exam: Present: normal exam, mucous membranes moist Neck exam: Present: normal inspection Respiratory exam: Present: normal lung sounds bilaterally. Absent: respiratory distress, wheezes Cardiovascular Exam: Present: regular rate, normal rhythm GI/Abdominal exam: Present: soft. Absent: distended, tenderness Rectal exam: Present: deferred Extremities exam: Present: normal inspection Back exam: Present: normal inspection Neurological exam: Present: alert, oriented X3 Psychiatric exam: Present: normal affect, normal mood Skin exam: Present: warm, dry, intact Course Vital Signs 07/22/17 18:28 Temperature 97.7 F Pulse Rate 71 Respiratory 18 Rate Blood Pressure 116/72 O2 Sat by Pulse 99 Oximetry Medical Decision Making - Medical Decision Making Patient presents at 16 weeks and 1 day with a chief complaint of vaginal bleeding. On initial evaluation, vital signs are stable, patient is in no acute distress. Patient to be evaluated with basic labs including RhoGam screen , and ultrasound of the pelvis. 8:18 PM lab evaluation of this patient is unremarkable. Rectal antibodies positive therefore the patient does not need RhoGAM. ultrasound shows normal anatomy and is otherwise unremarkable. I discussed the results with the patient , I instructed that she follow up with primary care and UNDERWRITING OPERATIONS MANAGER tomorrow. Patient was instructed to return to the emergency department if her symptoms worsen or change. - Lab Data Result diagrams: 07/22/17 19:08 07/22/17 19:08 Lab Results 07/22/17 07/22/17 07/22/17 Range/Units 19:08 19:08 19:08 WBC 8.4 (4.0-11.0) k/uL RBC 3.75 L (3.80-5.40) m/uL Hgb 11.6 (11.4-16.0) gm/dL Hct 32.7 L (34.0-46.0) % MCV 87.2 (80.0-100.0) fL MCH 31.0 (25.0-35.0) pg MCHC 35.5 (31.0-37.0) g/dL RDW 13.8 (11.5-15.5) % Plt Count 242 (150-450) k/uL Neutrophils % 79 % Lymphocytes % 16 % Monocytes % 4 % Eosinophils % 0 % Basophils % 0 % Neutrophils # 6.6 (1.3-7.7) k/uL Lymphocytes # 1.4 (1.0-4.8) k/uL Monocytes # 0.3 (0-1.0) k/uL Eosinophils # 0.0 (0-0.7) k/uL Basophils # 0.0 (0-0.2) k/uL Sodium 140 (137-145) mmol/L Potassium 3.8 (3.5-5.1) mmol/L Chloride 106 (98-107) mmol/L Carbon Dioxide 20 L (22-30) mmol/L Anion Gap 14 mmol/L BUN 7 (7-17) mg/dL Creatinine 0.36 L (0.52-1.04) mg/dL Est GFR (CKD-EPI)AfAm >90 (>60 ml/min/1.73 sqM) Est GFR (CKD-EPI)NonAf >90 (>60 ml/min/1.73 sqM) Glucose 94 (74-99) mg/dL Calcium 9.7 (8.4-10.2) mg/dL Blood Type O Positive Blood Type Recheck No Disposition Clinical Impression: Threatened Disposition: HOME SELF-CARE Condition: Good Instructions: Threatened Miscarriage (ED) Is patient prescribed a controlled substance at d/c from ED?: No Referrals: None,Stated [REFERRING] - 1-2 days
[2017-07-22 19:17] LABS: Basophils % (A) 0 %; Eosinophils % (A) 0 %; HCT 32.7 % (34.0-46.0); HGB 11.6 gm/dL (11.4-16.0); Lymphocytes # (A) 1.4 k/uL (1.0-4.8); Lymphocytes % (A) 16 %; MCHC 35.5 g/dL (31.0-37.0); MCV 87.2 fL (80.0-100.0); Mean Platelet Volume 7.1; Monocytes # (A) 0.3 k/uL (0-1.0); Monocytes % (A) 4 %; Neutrophils # (A) 6.6 k/uL (1.3-7.7); Neutrophils % (A) 79 %; Platelet Count 242 k/uL (150-450); RBC 3.75 m/uL (3.80-5.40); RDW 13.8 % (11.5-15.5); WBC 8.4 k/uL (4.0-11.0)
[2017-07-22 19:26] LABS: Anion Gap 14 mmol/L; Blood Urea Nitrogen 7 mg/dL (7-17); Calcium 9.7 mg/dL (8.4-10.2); Carbon Dioxide 20 mmol/L (22-30); Chloride 106 mmol/L (98-107); Glucose 94 mg/dL (74-99); Potassium 3.8 mmol/L (3.5-5.1); Sodium 140 mmol/L (137-145)
--- NOTE | 2017-07-22 20:03 | US ---
EXAMINATION TYPE: US OB >= 14 wk fetus Early second trimester DATE OF EXAM: 07/22/2017 COMPARISON: Prior first trimester ultrasound March 26, 2017 CLINICAL HISTORY: PainBleeding x 1 day, 3, miscarriage 2 TECHNIQUE: Transabdominal (TA) GESTATIONAL AGE / DATING Physician Established: (16 weeks/2 days) EDC: 01/04/2018 Dates by LMP: Unknown Dates by First Scan: This is 1st scan here Dates by Current Scan: (16 weeks/5 days) EDC: 01/01/2018 SURVEY IUP: Single PLACENTA: Posterior PREVIA: Marginal KERRI: 11.7 cm Normal CERVICAL LENGTH (transabdominal: norm > 3.0cm): 3.3 cm BIOMETRY PRESENTATION: Breech LIE: Transverse with head maternal right BPD: 3.5 cm 16 weeks / 6 days HC: 13.1 cm 16 weeks / 5 days AC: 10.7 cm 16 weeks / 4 days FL: 2.3 cm 16 weeks / 5 days ESTIMATED WEIGHT IN GRAMS: 165 grams ESTIMATED WEIGHT IN LBS/OZ: 0 lbs. 6 oz. WEIGHT PERCENTAGE BASED ON ESTABLISHED DATES: 69% HC/AC: 1.22 Normal FL/AC: 20.98 HEART RATE: 151 bpm RHYTHM: Normal Viable single IUP measuring 16 weeks 5 days with a heart rate of 151bpm placenta appears to be low-l perry. Single live intrauterine gestation is now present and is pole and gestational sac are seen. Yol k sac is not clearly identified. A breech presentation to fetus is currently present. No cervical eff acement is noted. Amniotic fluid index is within normal limits. There is no ultrasound evidence for p lacenta previa. biometry measurements are concordant felt within normal limits. IMPRESSION: As above, no ultrasound evidence for complication. Routine Anatomical obstetric survey recommended in approximately one month's time
[2017-07-22 20:39] VITALS: BP 108/53; PULSE 73; TEMP 97.9
== END 2017-07-22 20:38 | disposition home or self-care (01) ==
LOC: EC 18:24
DX: O20.0 Threatened abortion (principal); Z87.891 Personal history of nicotine dependence; Z79.899 Other long term (current) drug therapy; Z88.1 Allergy status to other antibiotic agents; Z88.8 Allergy status to other drugs, medicaments and biological substances; Z3A.16 16 weeks gestation of pregnancy
CPT/HCPCS: 36415; 76805; 80048; 85025; 86900; 86901; 99284

== ENCOUNTER 2017-09-28 18:08 | Outpatient (CLI) | payer OTHER ==
[2017-09-28 18:38] LABS: Appearance,Urine Cloudy (Clear); Bacteria,Urine Occasional /hpf; Bilirubin,Urine Negative (Negative); Blood,Urine Negative (Negative); Color,Urine Yellow; Glucose,Urine (UA) Negative (Negative); Ketones,Urine Negative (Negative); Leukocyte Esterase,Urine Large (Negative); Mucus,Urine Rare /hpf; Nitrite,Urine Negative (Negative); PH, Urine 7.5 (5.0-8.0); Protein,Urine Trace (Negative); Specific Gravity,Urine 1.017 (1.001-1.035); Squamous Epithelial Cell,Urine 10 /hpf (0-4); WBC,Urine 5 /hpf (0-5)
[2017-09-28] MEDS ORDERED: ACETAMINOPHEN TAB 325 MG TAB PO STA (18:47)
[2017-09-28 18:53] VITALS: BP 115/74; PULSE 105; RESP 17; TEMP 98.2
--- NOTE | 2017-10-07 12:43 | P.MSEPDOC ---
Presenting Problems - Arrival Data Date of Arrival on Unit: 09/28/17 Time of Arrival on Unit: 18:08 Mode of Transport: Ambulatory - Complaint OB-Reason for Admission/Chief Complaint: Pain Comment: pt rates headache a /10 for pain, headache/nausea/abd pain started at 1300 today, pt did not take any tylenol or try any interventions at home, pt is receiving care at [facility] with Dr Uzma abd soft and non tender Medical History - Information : 3 Para: 0 Term: 0 : 0 Abortions: Spontaneous or Elective: 2 Number of Living Children: 0 - Gestational Age Gestational Age by MEGHANA (wks/days): 25 Weeks and 6 Days Review of Systems - Review of Systems Constitutional: No problems Breast: No problems ENT: No problems Cardiovascular: No problems Respiratory: No problems Gastrointestinal: No problems Genitourinary: No problems Musculoskeletal: No problems Neurological: No problems Skin: No problems Vital Signs - Temperature Temperature: 98.2 F Temperature Source: Temporal Artery Scan - Pulse Right Brachial Pulse Rate: 105 Pulse Assessment Method: Automatic Cuff - Respirations Respiratory Rate: 17 Oxygen Delivery Method: Room Air O2 Sat by Pulse Oximetry: 98 - Blood Pressure Right Arm Blood Pressure: 115/74 Blood Pressure Mean: 87 Blood Pressure Source: Automatic Cuff Medical Screen Scoring (Pre) - Cervical Exam Dilation: 0 cm = 0 Effacement: Exam Deferred Membranes: Intact - Uterine Contractions Frequency: N/A Duration: N/A Intensity: N/A - Maternal Vital Signs Maternal Temperature: N/A Maternal Blood Pressure: N/A Signs of Preeclampsia: N/A Maternal Respirations: N/A - Pain Assessment Pain Location and Character: Head Pain Scale Used: Numeric (1 - 10) Pain Intensity: 6 Pain Management Goal: 3 Pain Description: *Acute, Aching Pain Radiation Location: none Pain Frequency: Frequent Pain Duration: 5 Pain Duration Units: Hours Pain Behavior: None Exhibited Pain Aggravating Factors: None Pharmacological Interventions: PRN Medication Non-Pharmacological Interventions: Darkened Room - Maternal Trauma Maternal Trauma: N/A - Assessment Baseline FHR: 145 Position: N/A Station: N/A - Total Score Total Score (Pre): 0 - Level of Risk Level of Risk: Low (0-5) Physician Notification (Pre) - Physician Notified Physician Notified Date: 09/28/17 Physician Notified Time: 18:45 Physician/Practitioner Notifed:: Dr Esqueda Spoke With: Dr Esqueda New Order Received: Yes (administer tylenol, oral hydrate, monitor pulse) Medical Screen Scoring (Post) - Cervical Exam Dilation: Exam Deferred Effacement: Exam Deferred Membranes: Intact - Uterine Contractions Frequency: N/A Duration: N/A Intensity: N/A - Maternal Vital Signs Maternal Temperature: N/A Maternal Blood Pressure: N/A Signs of Preeclampsia: N/A Maternal Respirations: N/A - Assessment Heart Rate: 145 Heart Rate - NICHD Category: Category I (Normal) = 0 NST: Reactive Position: N/A Station: N/A - Total Score Total Score (Post): 0 - Post Treatment Level of Risk Post Treatment Level of Risk: Low (0-5) Disposition - Disposition OB Disposition: Discharge to home Discharge Date: 09/28/17 Discharge Time: 19:32 I agree with the RN Medical Screening Exam: Yes Risk & Benefit of care provided described in d/c instruction: Yes Diagnosis: HEADACHE
== END 2017-09-28 19:32 | disposition home or self-care (01) ==
LOC: FBPOP 18:08
PROVIDERS: ATTEND Obstetrics & Gynecology
DX: O99.89 Other specified diseases and conditions complicating pregnancy, childbirth and the puerperium (principal); R51 Headache; Z3A.25 25 weeks gestation of pregnancy
CPT/HCPCS: 81001; 99213

== ENCOUNTER 2018-12-15 18:08 | Emergency (ER) | payer OTHER ==
[2018-12-15] MEDS ORDERED: ONDANSETRON 4 MG/2 ML VIAL IVP STA (18:29)
[2018-12-15] MEDS ORDERED: SODIUM CHLORIDE 0.9% 1,000 ML IV STA ×2 (18:29)
[2018-12-15] MEDS ORDERED: KETOROLAC 30 MG/ML 1 ML VIAL IVP STA (18:29)
[2018-12-15] MEDS ORDERED: PANTOPRAZOLE 40 MG/10 ML VIAL IVP STA (18:29)
--- NOTE | 2018-12-15 18:31 | ED ---
Abdominal Pain HPI - General Chief Complaint: Abdominal Pain Stated Complaint: nausea/side pain Time Seen by Provider: 12/15/18 18:22 Source: patient, RN notes reviewed, old records reviewed Mode of arrival: ambulatory Limitations: no limitations - History of Present Illness Initial Comments: Patient is a 23-year-old female she presents emergency department today with 3 days of nausea, midabdominal pain. Patient reports that she just got off her menstrual period yesterday. She states that seemed to be abnormal in light her for her typical period. Patient states that she's had no fevers or chills. No history of sick contacts Patient also reports history of some diarrhea. Patient states that she's had no dysuria. She denies any melena or hematochezia.Patient denies any recent fever, chills, shortness of breath, chest pain, back pain, numbness or tingling, dysuria or hematuria, constipation or diarrhea, headaches or visual changes, or any other current symptoms - Related Data Home Medications Medication Instructions Recorded Confirmed Chewables 1 tab PO DAILY 11/24/16 09/28/17 Previous Rx's Medication Instructions Recorded Famotidine [Pepcid] 20 mg PO BID #20 tablet 12/15/18 Ondansetron Odt [Zofran Odt] 4 mg PO Q8HR PRN #12 tab 12/15/18 Allergies Allergy/AdvReac Type Severity Reaction Status Date / Time sertraline [From Zoloft] Allergy Severe Rash/Hives Verified 12/15/18 18:21 cephalexin [From Keflex] Allergy Rash/Hives Verified 12/15/18 18:21 Review of Systems ROS Statement: Those systems with pertinent positive or pertinent negative responses have been documented in the HPI. ROS Other: All systems not noted in ROS Statement are negative. Past Medical History Past Medical History: No Reported History History of Any Multi-Drug Resistant Organisms: None Reported Past Surgical History: No Surgical Hx Reported Additional Past Surgical History / Comment(s): "lazy" eye surgery Past Psychological History: Anxiety, Depression Smoking Status: Former smoker Past Alcohol Use History: None Reported Past Drug Use History: None Reported General Exam - General Exam Comments Initial Comments: This is a 23-year-old female. Alert and oriented 3. No distress. Limitations: no limitations General appearance: alert, in no apparent distress Head exam: Present: atraumatic, normocephalic, normal inspection Eye exam: Present: normal appearance, PERRL, EOMI. Absent: scleral icterus, conjunctival injection, periorbital swelling ENT exam: Present: normal exam, mucous membranes moist Neck exam: Present: normal inspection. Absent: tenderness, meningismus, lymphadenopathy Respiratory exam: Present: normal lung sounds bilaterally. Absent: respiratory distress, wheezes, rales, rhonchi, stridor Cardiovascular Exam: Present: regular rate GI/Abdominal exam: Present: soft, normal bowel sounds. Absent: distended, tenderness, guarding, rebound, rigid Extremities exam: Present: normal inspection, full ROM, normal capillary refill. Absent: tenderness, pedal edema, joint swelling, calf tenderness Back exam: Present: normal inspection Neurological exam: Present: alert, oriented X3, CN II-XII intact Psychiatric exam: Present: normal affect, normal mood Skin exam: Present: warm, dry, intact, normal color. Absent: rash Course Vital Signs 12/15/18 12/15/18 12/15/18 18:18 19:21 20:24 Temperature 98.9 F 99.3 F Pulse Rate 74 81 70 Respiratory 20 17 18 Rate Blood Pressure 124/79 111/75 116/75 O2 Sat by Pulse 99 95 98 Oximetry Medical Decision Making - Medical Decision Making 200 female for abdominal pain. He was given IV fluids and labs obtained. Reviewed and unremarkable. She is given Protonix Toradol and Zofran. She has improvement of her symptoms. Discussed maybe epigastric pain is related to some gastritis. Discussed discharge and Patient with an acid medication and Zofran. All questions were answered return parameters were discussed. - Lab Data Result diagrams: 12/15/18 18:52 12/15/18 18:52 Lab Results 12/15/18 12/15/18 12/15/18 Range/Units 18:27 18:27 18:52 WBC (3.8-10.6) k/uL RBC (3.80-5.40) m/uL Hgb (11.4-16.0) gm/dL Hct (34.0-46.0) % MCV (80.0-100.0) fL MCH (25.0-35.0) pg MCHC (31.0-37.0) g/dL RDW (11.5-15.5) % Plt Count (150-450) k/uL Neutrophils % % Lymphocytes % % Monocytes % % Eosinophils % % Basophils % % Neutrophils # (1.3-7.7) k/uL Lymphocytes # (1.0-4.8) k/uL Monocytes # (0-1.0) k/uL Eosinophils # (0-0.7) k/uL Basophils # (0-0.2) k/uL Sodium 139 (137-145) mmol/L Potassium 4.1 (3.5-5.1) mmol/L Chloride 103 (98-107) mmol/L Carbon Dioxide 24 (22-30) mmol/L Anion Gap 12 mmol/L BUN 17 (7-17) mg/dL Creatinine 0.78 (0.52-1.04) mg/dL Est GFR (CKD-EPI)AfAm >90 (>60 ml/min/1.73 sqM) Est GFR (CKD-EPI)NonAf >90 (>60 ml/min/1.73 sqM) Glucose 90 (74-99) mg/dL Calcium 9.5 (8.4-10.2) mg/dL Total Bilirubin 0.2 (0.2-1.3) mg/dL AST 21 (14-36) U/L ALT 16 (9-52) U/L Alkaline Phosphatase 91 (38-126) U/L Total Protein 7.6 (6.3-8.2) g/dL Albumin 4.6 (3.5-5.0) g/dL Amylase 45 (30-110) U/L Lipase 84 (23-300) U/L Urine Color Yellow Urine Appearance Cloudy H (Clear) Urine pH 6.5 (5.0-8.0) Ur Specific [place] 1.030 (1.001-1.035) Urine Protein Trace H (Negative) Urine Glucose (UA) Negative (Negative) Urine Ketones Negative (Negative) Urine Blood Small H (Negative) Urine Nitrite Negative (Negative) Urine Bilirubin Negative (Negative) Urine Urobilinogen <2.0 (<2.0) mg/dL Ur Leukocyte Esterase Large H (Negative) Urine RBC 1 (0-5) /hpf Urine WBC 14 H (0-5) /hpf Ur Squamous Epith Cells 16 H (0-4) /hpf Amorphous Sediment Occasional H (None) /hpf Urine Bacteria Occasional H (None) /hpf Urine Mucus Rare H (None) /hpf Urine HCG, Qual Not Detected (Not Detectd) 12/15/18 Range/Units 18:52 WBC 7.2 (3.8-10.6) k/uL RBC 4.47 (3.80-5.40) m/uL Hgb 13.5 (11.4-16.0) gm/dL Hct 38.8 (34.0-46.0) % MCV 86.7 (80.0-100.0) fL MCH 30.2 (25.0-35.0) pg MCHC 34.8 (31.0-37.0) g/dL RDW 12.9 (11.5-15.5) % Plt Count 267 (150-450) k/uL Neutrophils % 64 % Lymphocytes % 27 % Monocytes % 5 % Eosinophils % 2 % Basophils % 1 % Neutrophils # 4.6 (1.3-7.7) k/uL Lymphocytes # 2.0 (1.0-4.8) k/uL Monocytes # 0.4 (0-1.0) k/uL Eosinophils # 0.1 (0-0.7) k/uL Basophils # 0.0 (0-0.2) k/uL Sodium (137-145) mmol/L Potassium (3.5-5.1) mmol/L Chloride (98-107) mmol/L Carbon Dioxide (22-30) mmol/L Anion Gap mmol/L BUN (7-17) mg/dL Creatinine (0.52-1.04) mg/dL Est GFR (CKD-EPI)AfAm (>60 ml/min/1.73 sqM) Est GFR (CKD-EPI)NonAf (>60 ml/min/1.73 sqM) Glucose (74-99) mg/dL Calcium (8.4-10.2) mg/dL Total Bilirubin (0.2-1.3) mg/dL AST (14-36) U/L ALT (9-52) U/L Alkaline Phosphatase (38-126) U/L Total Protein (6.3-8.2) g/dL Albumin (3.5-5.0) g/dL Amylase (30-110) U/L Lipase (23-300) U/L Urine Color Urine Appearance (Clear) Urine pH (5.0-8.0) Ur Specific [place] (1.001-1.035) Urine Protein (Negative) Urine Glucose (UA) (Negative) Urine Ketones (Negative) Urine Blood (Negative) Urine Nitrite (Negative) Urine Bilirubin (Negative) Urine Urobilinogen (<2.0) mg/dL Ur Leukocyte Esterase (Negative) Urine RBC (0-5) /hpf Urine WBC (0-5) /hpf Ur Squamous Epith Cells (0-4) /hpf Amorphous Sediment (None) /hpf Urine Bacteria (None) /hpf Urine Mucus (None) /hpf Urine HCG, Qual (Not Detectd) Disposition Clinical Impression: Abdominal pain Disposition: HOME SELF-CARE Condition: Good Instructions (If sedation given, give patient instructions): Abdominal Pain (ED) Additional Instructions: Please use medication as discussed. Please follow up with family doctor if symptoms have not improved over the next two days. Please return to the emergency room if your symptoms increase or worsen or for any other concerns. Prescriptions: Famotidine [Pepcid] 20 mg PO BID #20 tablet Ondansetron Odt [Zofran Odt] 4 mg PO Q8HR PRN #12 tab PRN Reason: Nausea Is patient prescribed a controlled substance at d/c from ED?: No Referrals: Rosalie Max MD [Primary Care Provider] - 1-2 days Time of Disposition: 20:42
[2018-12-15 18:46] LABS: Amorphous Sediment,Urine Occasional /hpf; Appearance,Urine Cloudy (Clear); Bacteria,Urine Occasional /hpf; Bilirubin,Urine Negative (Negative); Blood,Urine Small (Negative); Color,Urine Yellow; Glucose,Urine (UA) Negative (Negative); Ketones,Urine Negative (Negative); Leukocyte Esterase,Urine Large (Negative); Mucus,Urine Rare /hpf; Nitrite,Urine Negative (Negative); PH, Urine 6.5 (5.0-8.0); Protein,Urine Trace (Negative); RBC,Urine 1 /hpf (0-5); Squamous Epithelial Cell,Urine 16 /hpf (0-4); Urobilinogen,Urine <2.0 mg/dL (<2.0); WBC,Urine 14 /hpf (0-5)
[2018-12-15 19:07] LABS: Basophils % (A) 1 %; Eosinophils # (A) 0.1 k/uL (0-0.7); Eosinophils % (A) 2 %; HCT 38.8 % (34.0-46.0); HGB 13.5 gm/dL (11.4-16.0); Lymphocytes % (A) 27 %; MCH 30.2 pg (25.0-35.0); MCHC 34.8 g/dL (31.0-37.0); MCV 86.7 fL (80.0-100.0); Mean Platelet Volume 6.1; Monocytes # (A) 0.4 k/uL (0-1.0); Monocytes % (A) 5 %; Neutrophils # (A) 4.6 k/uL (1.3-7.7); Neutrophils % (A) 64 %; Platelet Count 267 k/uL (150-450); RBC 4.47 m/uL (3.80-5.40); RDW 12.9 % (11.5-15.5); WBC 7.2 k/uL (3.8-10.6)
[2018-12-15 19:22] VITALS: TEMP 99.3
[2018-12-15 19:23] LABS: ALT 16 U/L (9-52); AST 21 U/L (14-36); African American GFR (CKD) >90 (>60 ml/min/1.73 sqM); Albumin 4.6 g/dL (3.5-5.0); Alkaline Phosphatase 91 U/L (38-126); Amylase 45 U/L (30-110); Anion Gap 12 mmol/L; Blood Urea Nitrogen 17 mg/dL (7-17); Calcium 9.5 mg/dL (8.4-10.2); Carbon Dioxide 24 mmol/L (22-30); Chloride 103 mmol/L (98-107); Glucose 90 mg/dL (74-99); Potassium 4.1 mmol/L (3.5-5.1); Sodium 139 mmol/L (137-145); Total Bilirubin 0.2 mg/dL (0.2-1.3); Total Protein 7.6 g/dL (6.3-8.2)
--- NOTE | 2018-12-15 19:39 | XR ---
EXAMINATION TYPE: XR KUB DATE OF EXAM: 12/15/2018 COMPARISON: NONE HISTORY: Abdominal pain. Nausea. TECHNIQUE: 2 views upright FINDINGS: There is no sign of intestinal obstruction or pneumoperitoneum. Fecal pattern is normal. Th ere are no pathologic calcifications over the kidneys. Lung bases are clear. IMPRESSION: Nonacute abdomen.
[2018-12-15 20:26] VITALS: BP 116/75; PULSE 70; RESP 18
== END 2018-12-15 21:17 | disposition home or self-care (01) ==
LOC: EC 18:08
DX: R10.9 Unspecified abdominal pain (principal); R11.0 Nausea; Z88.1 Allergy status to other antibiotic agents; Z88.8 Allergy status to other drugs, medicaments and biological substances; Z87.891 Personal history of nicotine dependence
CPT/HCPCS: 36415; 80053; 82150; 83690; 85025; 81001; 81025; 74018; 99284; 96374; 96375 ×2; 96361 ×2; J2405; J1885; C9113

== ENCOUNTER 2019-10-20 12:08 | Emergency (ER) | payer OTHER ==
[2019-10-20 12:18] VITALS: TEMP 98.1
--- NOTE | 2019-10-20 12:39 | ED ---
General Adult HPI - General Chief complaint: Headache Stated complaint: sinus pain, 10wks preg cramping Time Seen by Provider: 10/20/19 12:22 Source: patient Mode of arrival: ambulatory Limitations: no limitations - History of Present Illness Initial comments: Dictation was produced using [employer] dictation software. please excuse any grammatical, word or spelling errors. This patient was cared for during a federal and state declared state of [facility] secondary to Covid 19 Chief Complaint: 23-year-old female allegedly 10 weeks presents with cough, anosmia and pelvic pain History of Present Illness: 23-year-old female, she has no significant past medical history. She presents today with 2-3 days of cough, mild dyspnea and anosmia. Patient also has some pelvic pain. Denies any fever, chills or night sweats. Patient states that pelvic pain is in her suprapubic area. She is allegedly 10 weeks . She does have care. She states that she did have an ultrasound performed at a different facility. Denies any fever, chills or night sweats. The ROS documented in this emergency department record has been reviewed and confirmed by me. Those systems with pertinent positive or negative responses clay ve been documented in the HPI. All other systems are other negative and/or noncontributory. PHYSICAL EXAM: General Impression: Alert and oriented x3, not in acute distress HEENT: Normocephalic atraumatic, extra-ocular movements intact, pupils equal and reactive to light bilaterally, mucous membranes moist. Cardiovascular: Heart regular rate and rhythm Chest: Able to complete full sentences, no retractions, no tachypnea, lungs clear to auscultation bilaterally Abdomen: abdomen soft, non-tender, non-distended, no organomegaly Musculoskeletal: Pulses present and equal in all extremities, no peripheral edema Motor: no focal deficits noted Neurological: CN II-XII grossly intact, no focal motor or sensory deficits noted Skin: Intact with no visualized rashes Psych: Normal affect and mood ED course: 23 yo female presents with URI-type symptoms and pelvic pain in . As upon arrival are within acceptable limits. Laboratory evaluation obtained. CBC, coag panel, metabolic panel is unremarkable. Ultrasound shows intrauterine measured at 10 weeks in 2 days heart rate of 174. Patient's chest x-ray is unremarkable. At this point patient's symptoms likely secondary to viral URI. She is told to follow-up with her [employer] this week. Return parameters discussed. Patient clear for discharge. - Related Data Home Medications Medication Instructions Recorded Confirmed diphenhydrAMINE HCL [Children's 12.5 mg PO Q4H PRN 10/20/19 10/20/19 Benadryl Allergy] Allergies Allergy/AdvReac Type Severity Reaction Status Date / Time sertraline [From Zoloft] Allergy Severe Rash/Hives Verified 10/20/19 13:02 cephalexin [From Keflex] Allergy Rash/Hives Verified 10/20/19 13:02 Review of Systems ROS Statement: Those systems with pertinent positive or pertinent negative responses have been documented in the HPI. ROS Other: All systems not noted in ROS Statement are negative. Past Medical History Past Medical History: No Reported History History of Any Multi-Drug Resistant Organisms: None Reported Past Surgical History: No Surgical Hx Reported Additional Past Surgical History / Comment(s): "lazy" eye surgery Past Psychological History: Anxiety, Depression Smoking Status: Never smoker Past Alcohol Use History: None Reported Past Drug Use History: None Reported General Exam Limitations: no limitations Course Vital Signs 10/20/19 12:14 Temperature 98.1 F Pulse Rate 95 Respiratory 16 Rate Blood Pressure 120/78 O2 Sat by Pulse 99 Oximetry Medical Decision Making - Lab Data Result diagrams: 10/20/19 12:59 10/20/19 12:59 Lab Results 10/20/19 10/20/19 10/20/19 Range/Units 12:59 12:59 12:59 WBC 7.4 (3.8-10.6) k/uL RBC 4.65 (3.80-5.40) m/uL Hgb 13.3 (11.4-16.0) gm/dL Hct 40.4 (34.0-46.0) % MCV 86.9 (80.0-100.0) fL MCH 28.6 (25.0-35.0) pg MCHC 32.9 (31.0-37.0) g/dL RDW 12.2 (11.5-15.5) % Plt Count 219 (150-450) k/uL Neutrophils % 76 % Lymphocytes % 17 % Monocytes % 5 % Eosinophils % 1 % Basophils % 0 % Neutrophils # 5.7 (1.3-7.7) k/uL Lymphocytes # 1.2 (1.0-4.8) k/uL Monocytes # 0.4 (0-1.0) k/uL Eosinophils # 0.0 (0-0.7) k/uL Basophils # 0.0 (0-0.2) k/uL PT 9.9 (9.0-12.0) sec INR 0.9 (<1.2) APTT 26.6 (22.0-30.0) sec Sodium 136 L (137-145) mmol/L Potassium 4.3 (3.5-5.1) mmol/L Chloride 104 (98-107) mmol/L Carbon Dioxide 21 L (22-30) mmol/L Anion Gap 11 mmol/L BUN 7 (7-17) mg/dL Creatinine 0.40 L (0.52-1.04) mg/dL Est GFR (CKD-EPI)AfAm >90 (>60 ml/min/1.73 sqM) Est GFR (CKD-EPI)NonAf >90 (>60 ml/min/1.73 sqM) Glucose 86 (74-99) mg/dL Calcium 9.7 (8.4-10.2) mg/dL Blood Type Blood Type Recheck Bld Type Recheck Status Antibody Screen Spec Expiration Date 10/20/19 Range/Units 13:25 WBC (3.8-10.6) k/uL RBC (3.80-5.40) m/uL Hgb (11.4-16.0) gm/dL Hct (34.0-46.0) % MCV (80.0-100.0) fL MCH (25.0-35.0) pg MCHC (31.0-37.0) g/dL RDW (11.5-15.5) % Plt Count (150-450) k/uL Neutrophils % % Lymphocytes % % Monocytes % % Eosinophils % % Basophils % % Neutrophils # (1.3-7.7) k/uL Lymphocytes # (1.0-4.8) k/uL Monocytes # (0-1.0) k/uL Eosinophils # (0-0.7) k/uL Basophils # (0-0.2) k/uL PT (9.0-12.0) sec INR (<1.2) APTT (22.0-30.0) sec Sodium (137-145) mmol/L Potassium (3.5-5.1) mmol/L Chloride (98-107) mmol/L Carbon Dioxide (22-30) mmol/L Anion Gap mmol/L BUN (7-17) mg/dL Creatinine (0.52-1.04) mg/dL Est GFR (CKD-EPI)AfAm (>60 ml/min/1.73 sqM) Est GFR (CKD-EPI)NonAf (>60 ml/min/1.73 sqM) Glucose (74-99) mg/dL Calcium (8.4-10.2) mg/dL Blood Type O Positive Blood Type Recheck O Pos Bld Type Recheck Status No Antibody Screen NEGATIVE Spec Expiration Date 10/23/20192319 Disposition Clinical Impression: Pelvic pain, Cough Disposition: HOME SELF-CARE Instructions (If sedation given, give patient instructions): Upper Respiratory Infection (ED), Pelvic Pain in Women (ED) Is patient prescribed a controlled substance at d/c from ED?: No Referrals: Lucius Mitchell DO [Doctor of Osteopathic Medicine] - 1-2 days Time of Disposition: 15:43
[2019-10-20 14:04] LABS: Basophils % (A) 0 %; Eosinophils % (A) 1 %; HCT 40.4 % (34.0-46.0); HGB 13.3 gm/dL (11.4-16.0); Lymphocytes # (A) 1.2 k/uL (1.0-4.8); Lymphocytes % (A) 17 %; MCH 28.6 pg (25.0-35.0); MCHC 32.9 g/dL (31.0-37.0); MCV 86.9 fL (80.0-100.0); Mean Platelet Volume 7.4; Monocytes # (A) 0.4 k/uL (0-1.0); Monocytes % (A) 5 %; Neutrophils # (A) 5.7 k/uL (1.3-7.7); Neutrophils % (A) 76 %; Platelet Count 219 k/uL (150-450); RBC 4.65 m/uL (3.80-5.40); RDW 12.2 % (11.5-15.5); WBC 7.4 k/uL (3.8-10.6)
[2019-10-20 14:09] LABS: INR 0.9 (<1.2); Partial Thromboplastin Time 26.6 sec (22.0-30.0); Prothrombin Time 9.9 sec (9.0-12.0)
[2019-10-20 14:13] LABS: African American GFR (CKD) >90 (>60 ml/min/1.73 sqM); Anion Gap 11 mmol/L; Blood Urea Nitrogen 7 mg/dL (7-17); Calcium 9.7 mg/dL (8.4-10.2); Carbon Dioxide 21 mmol/L (22-30); Chloride 104 mmol/L (98-107); Glucose 86 mg/dL (74-99); Non-African American GFR(CKD) >90 (>60 ml/min/1.73 sqM); Sodium 136 mmol/L (137-145)
--- NOTE | 2019-10-20 14:15 | XR ---
EXAMINATION TYPE: XR chest 1V portable DATE OF EXAM: 10/20/2019 CLINICAL HISTORY: Cough TECHNIQUE: Upright portable view of the chest obtained COMPARISON: None FINDINGS: The cardiomediastinal silhouette is within normal limits for size. Pulmonary vasculature i s normal. There is a summation of shadows of the left ribs and left basilar pulmonary markings, that likely do not represent true opacity. There is no focal air space opacity, pleural effusion, or pneum othorax seen. The osseous structures are intact. IMPRESSION: No definitive focal opacity.
[2019-10-20 14:19] LABS: Potassium 4.3 mmol/L (3.5-5.1)
--- NOTE | 2019-10-20 15:32 | US ---
EXAMINATION TYPE: Transabdominal DATE OF EXAM: 10/20/2019 2:47 PM COMPARISON: NONE CLINICAL HISTORY: pelvic pain. Pelvic cramping x 2 days; cough, sinus drainage EXAM PERFORMED: Transabdominal (TA) EXAM MEASUREMENTS: GESTATIONAL AGE / DATING Physician Established: Not yet established Dates by LMP: (9 weeks/6 days) EDC: 05/18/2020 Dates by First Scan: No previous. Dates by Current Scan for: (10 weeks/2 days) EDC: 05/15/2020 MATERNAL ANATOMY Uterus: 10.1 x 7.3 x 4.9cm Right Ovary: 2.3 x 2.6 x 1.6cm Left Ovary: 2.2 x 2.3 x 1.2cm Post CDS / Adnexa: wnl Presence of free fluid: no Presence of corpus luteal cyst: not seen Presence of subchorionic bleed: no GESTATION / SURVEY CRL: 3.3cm (10 weeks/2 days) Yolk Sac (normal less than 6mm): 5.1mm Heart Rate: 174 bpm Rhythm: Normal IUP: Single, live IUP Nuchal Translucency 10-14wks (normal less than 3mm): 1.0mm Date of LMP: 08/12/2019 Beta HcG (if available): NA Single, live IUP,10 weeks/2 days, EDC: 05/15/2020, HR 174bpm. IMPRESSION: Single viable intrauterine corresponding to ultrasound age 10 weeks 2 days with estimated d ate of delivery 05/15/2020, additional findings above
[2019-10-20 16:13] VITALS: BP 116/66; PULSE 87; RESP 18
== END 2019-10-20 16:12 | disposition home or self-care (01) ==
LOC: EC 12:08
DX: O26.891 Other specified pregnancy related conditions, first trimester (principal); R10.2 Pelvic and perineal pain; O99.89 Other specified diseases and conditions complicating pregnancy, childbirth and the puerperium; R05 Cough; R43.0 Anosmia; Z3A.10 10 weeks gestation of pregnancy; Z20.828 Contact with and (suspected) exposure to other viral communicable diseases; Z88.1 Allergy status to other antibiotic agents; Z88.8 Allergy status to other drugs, medicaments and biological substances
CPT/HCPCS: 36415; 86900; 86901; 80048; 85025; 85610; 85730; 86850; 84702; 71045; 76801; 99284; U0003

== ENCOUNTER 2019-11-26 09:15 | Emergency (ER) | payer OTHER ==
--- NOTE | 2019-11-26 09:58 | ED ---
Female Urogenital HPI - General Chief complaint: Urogenital Stated complaint: Boil in vaginal area Time Seen by Provider: 11/26/19 09:24 Source: patient, RN notes reviewed, old records reviewed Mode of arrival: ambulatory Limitations: no limitations - History of Present Illness Initial comments: This Patient is a 24-year-old female who presents the emergency department today for concerns for a boil on the right labia that has been present for a few days. She reports that it seemed to open up and start bleeding yesterday. She reports that she did notice some clots of blood on her underwear from the bleeding. She states that she is 15 weeks . Her BUSINESS DATA ANALYST is Dr. Diaz. Patient is a G for P1 female with 2 previous miscarriages. She states that she's having no significant abdominal pain or cramping. She denies fevers or chills. She states that she has not been on antibiotics to treat for this labial abscess at this time. - Related Data Home Medications Medication Instructions Recorded Confirmed Aspirin EC [Ecotrin Low Dose] 81 mg PO DAILY 11/26/19 11/26/19 Previous Rx's Medication Instructions Recorded clindamycin HCL [Cleocin] 300 mg PO Q8H #21 cap 11/26/19 Allergies Allergy/AdvReac Type Severity Reaction Status Date / Time sertraline [From Zoloft] Allergy Severe Rash/Hives Verified 11/26/19 10:22 cephalexin [From Keflex] Allergy Rash/Hives Verified 11/26/19 10:22 Review of Systems ROS Statement: Those systems with pertinent positive or pertinent negative responses have been documented in the HPI. ROS Other: All systems not noted in ROS Statement are negative. Past Medical History Past Medical History: No Reported History History of Any Multi-Drug Resistant Organisms: None Reported Past Surgical History: No Surgical Hx Reported Additional Past Surgical History / Comment(s): "lazy" eye surgery Past Psychological History: Anxiety, Depression Smoking Status: Never smoker Past Alcohol Use History: None Reported Past Drug Use History: None Reported General Exam - General Exam Comments Initial Comments: 24-year-old female. Alert and oriented 3. Patient appears in no acute distress. Limitations: no limitations General appearance: alert, in no apparent distress Head exam: Present: atraumatic, normocephalic, normal inspection Eye exam: Present: normal appearance, PERRL, EOMI. Absent: scleral icterus, conjunctival injection, periorbital swelling ENT exam: Present: normal exam, mucous membranes moist Neck exam: Present: normal inspection. Absent: tenderness, meningismus, lymphadenopathy Respiratory exam: Present: normal lung sounds bilaterally. Absent: respiratory distress, wheezes, rales, rhonchi, stridor Cardiovascular Exam: Present: regular rate, normal rhythm, normal heart sounds. Absent: systolic murmur, diastolic murmur, rubs, gallop, clicks GI/Abdominal exam: Present: soft, normal bowel sounds. Absent: distended, tenderness, guarding, rebound, rigid External exam: Present: erythema, swelling (Patient has a right labial abscess measuring approximately quarter size. There is evidence of drainage in the area is open at this time.). Absent: normal external exam Speculum exam: Present: normal speculum exam. Absent: vaginal discharge, cervical discharge, vaginal bleeding, foreign body By manual exam: Present: normal by manual exam. Absent: cervical motion tenderness, adnexal tenderness Extremities exam: Present: normal inspection, full ROM, normal capillary refill. Absent: tenderness, pedal edema, joint swelling, calf tenderness Back exam: Present: normal inspection Neurological exam: Present: alert, oriented X3, CN II-XII intact Psychiatric exam: Present: normal affect, normal mood Skin exam: Present: warm, dry, intact, normal color. Absent: rash Course Vital Signs 11/26/19 11/26/19 09:18 10:20 Temperature 97.8 F Pulse Rate 111 H 76 Respiratory 16 20 Rate Blood Pressure 104/46 105/60 O2 Sat by Pulse 96 98 Oximetry Medical Decision Making - Medical Decision Making Patient is a 24-year-old female who presents to the ER today for evaluation for a boil in left labia. Patient has evidence of abscess likely from ingrown hair. It is already open and draining at this time. Aerobic wound culture was completed. Discussed using sitz baths and taking antibiotic. Patient is 15 weeks and heart tones were within normal 1 50 bpm. History shows Rh+ blood type. There is no evidence of bleeding in vaginal vault. The bleeding is coming from the open abscess. - Radiology Data Radiology results: report reviewed heart tones are 1 50 bpm. Disposition Clinical Impression: Abscess of genital labia Disposition: HOME SELF-CARE Condition: Good Instructions (If sedation given, give patient instructions): Abscess (ED) Additional Instructions: Patient denies to continue to use warm sits baths and warm compresses over the area. Take antibiotics as prescribed. Return to the ED if any alarming signs or symptoms occur. Prescriptions: clindamycin HCL [Cleocin] 300 mg PO Q8H #21 cap Is patient prescribed a controlled substance at d/c from ED?: No Referrals: Justin Fields MD [Primary Care Provider] - 1-2 days Time of Disposition: 11:31
[2019-11-26 11:20] VITALS: PULSE 76
--- NOTE | 2019-11-26 11:25 | US ---
EXAMINATION TYPE: US OB limited DATE OF EXAM: 11/26/2019 COMPARISON: 2019 CLINICAL HISTORY: heart tones, bleeding hx. For heart tones EXAM PERFORMED: Transabdominal (TA) GESTATIONAL AGE / DATING Physician Established: (15 weeks/1 days) EDC: 05/18/2020 No growth performed on today?s study per ordering physician SURVEY HEART RATE: 150 bpm RHYTHM: Normal IMPRESSION: heart rate is detected at 150 bpm, limited scan
[2019-11-26 11:49] VITALS: BP 107/62; RESP 18; TEMP 98.1
[2019-11-26 12:00] LABS: Appearance,Urine Cloudy (Clear); Bacteria,Urine Rare /hpf; Bilirubin,Urine Negative (Negative); Blood,Urine Moderate (Negative); Color,Urine Yellow; Glucose,Urine (UA) Negative (Negative); Ketones,Urine 4+ (Negative); Leukocyte Esterase,Urine Large (Negative); Mucus,Urine Moderate /hpf; Nitrite,Urine Negative (Negative); PH, Urine 6.5 (5.0-8.0); Protein,Urine 1+ (Negative); RBC,Urine 17 /hpf (0-5); Specific Gravity,Urine 1.026 (1.001-1.035); Squamous Epithelial Cell,Urine 18 /hpf (0-4); Urobilinogen,Urine <2.0 mg/dL (<2.0); WBC,Urine 34 /hpf (0-5)
== END 2019-11-26 11:49 | disposition home or self-care (01) ==
LOC: EC 09:15
DX: O23.592 Infection of other part of genital tract in pregnancy, second trimester (principal); Z88.1 Allergy status to other antibiotic agents; Z88.8 Allergy status to other drugs, medicaments and biological substances; Z3A.15 15 weeks gestation of pregnancy
CPT/HCPCS: 76815; 81001; 87070; 87086; 87205; 99284

== ENCOUNTER 2020-03-28 19:45 | Outpatient (CLI) | payer OTHER ==
[2020-03-28 20:27] LABS: Appearance,Urine Cloudy (Clear); Bilirubin,Urine Negative (Negative); Blood,Urine Negative (Negative); Color,Urine Yellow; Glucose,Urine (UA) Negative (Negative); Ketones,Urine Negative (Negative); Leukocyte Esterase,Urine Large (Negative); Mucus,Urine Rare /hpf; Nitrite,Urine Negative (Negative); PH, Urine 6.5 (5.0-8.0); Protein,Urine Trace (Negative); RBC,Urine <1 /hpf (0-5); Specific Gravity,Urine 1.019 (1.001-1.035); Squamous Epithelial Cell,Urine 5 /hpf (0-4); Urobilinogen,Urine <2.0 mg/dL (<2.0); WBC,Urine 29 /hpf (0-5)
[2020-03-28 20:35] LABS: Creatinine,Urine Random 88.8 mg/dL; Protein/Creatinine Ratio,Urine 0.101
[2020-03-28 21:16] LABS: INR 0.9 (<1.2); Prothrombin Time 9.8 sec (9.0-12.0)
[2020-03-28 21:18] LABS: Partial Thromboplastin Time 21.7 sec (22.0-30.0)
[2020-03-28 21:19] LABS: ALT 7 U/L (4-34); AST 16 U/L (14-36); African American GFR (CKD) >90 (>60 ml/min/1.73 sqM); Blood Urea Nitrogen 6 mg/dL (7-17); LDH 375 U/L (313-618); Non-African American GFR(CKD) >90 (>60 ml/min/1.73 sqM); Uric Acid 5.6 mg/dL (3.7-7.4)
[2020-03-28 21:23] LABS: Basophils % (A) 0 %; Eosinophils % (A) 0 %; HCT 31.4 % (34.0-46.0); HGB 10.4 gm/dL (11.4-16.0); Lymphocytes # (A) 2.1 k/uL (1.0-4.8); Lymphocytes % (A) 29 %; MCH 29.9 pg (25.0-35.0); MCHC 33.1 g/dL (31.0-37.0); MCV 90.2 fL (80.0-100.0); Mean Platelet Volume 7.6; Monocytes # (A) 0.3 k/uL (0-1.0); Monocytes % (A) 5 %; Neutrophils # (A) 4.7 k/uL (1.3-7.7); Neutrophils % (A) 64 %; Platelet Count 228 k/uL (150-450); RBC 3.48 m/uL (3.80-5.40); RDW 13.9 % (11.5-15.5); WBC 7.3 k/uL (3.8-10.6)
[2020-03-28 21:25] VITALS: RESP 16; TEMP 97.2
[2020-03-28 22:36] VITALS: BP 119/61; PULSE 80
--- NOTE | 2020-04-01 20:27 | P.MSEPDOC ---
Presenting Problems - Arrival Data Date of Arrival on Unit: 03/28/20 Time of Arrival on Unit: 19:45 Mode of Transport: Ambulatory - Complaint OB-Reason for Admission/Chief Complaint: Headache Comment: burning in abdomen since this am, headache has been going on for weeks. Medical History - Information : 3 Para: 1 Term: 1 : 0 Abortions: Spontaneous or Elective: 1 Number of Living Children: 1 - Gestational Age Gestational Age by MEGHANA (wks/days): 32 Weeks and 5 Days - History Comment: previous PIH delivery at 37 weeks Review of Systems - Review of Systems Constitutional: No problems Breast: No problems ENT: No problems Cardiovascular: No problems Respiratory: No problems Gastrointestinal: No problems Genitourinary: No problems Musculoskeletal: No problems Neurological: No problems Skin: No problems Vital Signs - Temperature Temperature: 97.2 F Temperature Source: Temporal Artery Scan - Pulse Right Sitting Pulse Rate: 80 Pulse Assessment Method: Automatic Cuff - Respirations Respiratory Rate: 16 Oxygen Delivery Method: Room Air - Blood Pressure Right Arm Sitting Blood Pressure: 119/61 Blood Pressure Mean: 80 Blood Pressure Source: Automatic Cuff Medical Screen Scoring (Pre) - Uterine Contractions Frequency: > 5 minutes apart = 1 Duration: N/A - Maternal Vital Signs Maternal Temperature: N/A Maternal Blood Pressure: N/A Signs of Preeclampsia: N/A Maternal Respirations: N/A - Maternal Trauma Maternal Trauma: N/A - Assessment - Baby A Baseline FHR: 145 Heart Rate - NICHD Category: Category I (Normal) = 0 NST: Reactive - Total Score - Baby A Total Score - Baby A: 1 - Total Score - Baby B Total Score - Baby B: 1 - Total Score - Baby C Total Score - Baby C: 1 - Level of Risk - Baby A Level of Risk - Baby A: Low (0-5) - Level of Risk - Baby B Level of Risk - Baby B: Low (0-5) - Level of Risk - Baby C Level of Risk - Baby C: Low (0-5) Physician Notification (Pre) - Physician Notified Physician Notified Date: 03/28/20 Physician Notified Time: 20:04 New Order Received: Yes (UA, [facility] LABS) Medical Screen Scoring (Post) - Cervical Exam Dilation: Exam Deferred Membranes: Intact - Uterine Contractions Frequency: > 5 minutes apart = 1 Duration: N/A - Maternal Vital Signs Maternal Temperature: N/A Maternal Blood Pressure: N/A Signs of Preeclampsia: N/A Maternal Respirations: N/A - Pain Assessment Pain Location and Character: Head Pain Scale Used: Numeric (1 - 10) Pain Intensity: 6 Pain Description: Aching - Maternal Trauma Maternal Trauma: N/A - Assessment - Baby A Heart Rate: 135 Heart Rate - NICHD Category: Category I (Normal) = 0 NST: Reactive - Total Score Total Score - Baby A: 1 Total Score - Baby B: 1 Total Score - Baby C: 1 - Post Treatment Level of Risk Post Treatment Level of Risk - Baby A: Low (0-5) Post Treatment Level of Risk - Baby B: Low (0-5) Post Treatment Level of Risk - Baby C: Low (0-5) Physician Notification (Post) - Physician Notified Physician Notified Date: 03/28/20 Physician Notified Time: 21:29 Physician/Practitioner Notified:: Ezekiel Siegel Order Received: Yes (DC HOME) - Notification Comment Comment: INCREASE WATER INTAKE AND TAKE TYLENOL PRN FOR HEADACHES Disposition - Disposition OB Disposition: Discharge to home, Written follow up instructions reviewed Discharge Date: 03/28/20 Discharge Time: 21:40 I agree with the RN Medical Screening Exam: Yes Case reviewed; plan agreed upon as documented in EMR&OBIX.: Yes Diagnosis: HEADACHE, UNSPECIFIED
== END 2020-03-28 21:40 | disposition home or self-care (01) ==
LOC: FBPOP 19:45
PROVIDERS: ATTEND Obstetrics & Gynecology
DX: O99.891 Other specified diseases and conditions complicating pregnancy (principal); Z3A.32 32 weeks gestation of pregnancy
CPT/HCPCS: 59025; 82570; 84156; 82565; 83615; 84450; 84460; 84520; 84550; 85025; 85384; 85610; 85730; 81001; G0463; 99215

== ENCOUNTER 2020-04-13 11:46 | Outpatient (CLI) | payer OTHER ==
[2020-04-13 12:30] LABS: Appearance,Urine Cloudy (Clear); Bilirubin,Urine Negative (Negative); Blood,Urine Trace (Negative); Budding Yeast,Urine Rare /hpf; Color,Urine Yellow; Glucose,Urine (UA) Negative (Negative); Ketones,Urine 1+ (Negative); Leukocyte Esterase,Urine Large (Negative); Mucus,Urine Moderate /hpf; Nitrite,Urine Negative (Negative); PH, Urine 5.5 (5.0-8.0); Protein,Urine Trace (Negative); RBC,Urine 18 /hpf (0-5); Specific Gravity,Urine 1.018 (1.001-1.035); Squamous Epithelial Cell,Urine 11 /hpf (0-4); Urobilinogen,Urine <2.0 mg/dL (<2.0); WBC,Urine 117 /hpf (0-5)
[2020-04-13 12:54] VITALS: BP 120/88; PULSE 108; RESP 16; TEMP 97.4
--- NOTE | 2020-04-13 19:14 | P.MSEPDOC ---
Presenting Problems - Arrival Data Date of Arrival on Unit: 04/13/20 Time of Arrival on Unit: 11:46 Mode of Transport: Ambulatory - Complaint OB-Reason for Admission/Chief Complaint: Pain Comment: subrapubic pain/pressure, lower back pain. Possible leaking x 2 days. Medical History - Information : 3 Para: 1 Term: 1 : 0 Abortions: Spontaneous or Elective: 1 Number of Living Children: 1 - Gestational Age Gestational Age by MEGHANA (wks/days): 35 Weeks and 0 Days - History Comment: Hx of Preeclampsia c\first Review of Systems - Review of Systems Constitutional: No problems Breast: No problems ENT: No problems Cardiovascular: No problems Respiratory: No problems Gastrointestinal: No problems Genitourinary: No problems Musculoskeletal: No problems Neurological: No problems Skin: No problems Vital Signs - Temperature Temperature: 97.4 F Temperature Source: Temporal Artery Scan - Pulse Right Sitting Brachial Pulse Rate: 108 Pulse Assessment Method: Pulse Oximetry - Respirations Respiratory Rate: 16 Oxygen Delivery Method: Room Air O2 Sat by Pulse Oximetry: 98 - Blood Pressure Right Arm Sitting Blood Pressure: 120/88 Blood Pressure Mean: 98 Blood Pressure Source: Automatic Cuff Medical Screen Scoring (Pre) - Cervical Exam Dilation: 1-3 cm = 1 Effacement: More than 50% = 2 Membranes: Intact - Uterine Contractions Frequency: N/A Duration: N/A Intensity: N/A - Maternal Vital Signs Maternal Temperature: N/A Maternal Blood Pressure: N/A Signs of Preeclampsia: N/A Maternal Respirations: N/A - Maternal Trauma Maternal Trauma: N/A - Assessment - Baby A Baseline FHR: 150 Heart Rate - NICHD Category: Category I (Normal) = 0 NST: Reactive Position: N/A Station: N/A - Total Score - Baby A Total Score - Baby A: 3 - Total Score - Baby B Total Score - Baby B: 3 - Total Score - Baby C Total Score - Baby C: 3 - Level of Risk - Baby A Level of Risk - Baby A: Low (0-5) - Level of Risk - Baby B Level of Risk - Baby B: Low (0-5) - Level of Risk - Baby C Level of Risk - Baby C: Low (0-5) Physician Notification (Pre) - Physician Notified Physician Notified Date: 04/13/20 Physician Notified Time: 12:45 New Order Received: Yes - Notification Comment Comment: Spk c\Dr. Lepe, advsd pt of Dr. Monk, , 35 0/7, c/o suprapubic pain/pressure, and possible leaking. Negative Amnisure, UA results reviewed. Reactive NST, no contractions. States to send UA for culture, follow up c\Dr. Mitchell as scheduled tomorrow. Disposition - Disposition OB Disposition: Discharge to home, Written follow up instructions reviewed Discharge Date: 04/13/20 Discharge Time: 12:50 I agree with the RN Medical Screening Exam: Yes Case reviewed; plan agreed upon as documented in EMR&OBIX.: Yes Diagnosis: FALSE LABOR BEFORE 37 COMPLETED WEEKS OF GEST, THIRD TRI
== END 2020-04-13 12:50 | disposition home or self-care (01) ==
LOC: FBPOP 11:46
PROVIDERS: ATTEND Obstetrics & Gynecology
DX: O47.03 False labor before 37 completed weeks of gestation, third trimester (principal); Z3A.35 35 weeks gestation of pregnancy
CPT/HCPCS: 59025; 84112; 81001; 87086; G0463; 99213

== ENCOUNTER 2020-04-22 22:00 | Outpatient (CLI) | payer OTHER ==
[2020-04-22 23:28] LABS: Appearance,Urine Cloudy (Clear); Bacteria,Urine Occasional /hpf; Bilirubin,Urine Negative (Negative); Blood,Urine Trace (Negative); Color,Urine Yellow; Glucose,Urine (UA) Negative (Negative); Ketones,Urine Negative (Negative); Leukocyte Esterase,Urine Large (Negative); Mucus,Urine Rare /hpf; Nitrite,Urine Negative (Negative); PH, Urine 5.5 (5.0-8.0); Protein,Urine Trace (Negative); RBC,Urine 74 /hpf (0-5); Specific Gravity,Urine 1.012 (1.001-1.035); Squamous Epithelial Cell,Urine 20 /hpf (0-4); Urobilinogen,Urine <2.0 mg/dL (<2.0); WBC,Urine 164 /hpf (0-5)
[2020-04-22 23:57] LABS: Appearance,Urine Clear (Clear); Bilirubin,Urine Negative (Negative); Blood,Urine Negative (Negative); Color,Urine Yellow; Glucose,Urine (UA) Negative (Negative); Ketones,Urine Negative (Negative); Leukocyte Esterase,Urine Negative (Negative); Nitrite,Urine Negative (Negative); PH, Urine 5.5 (5.0-8.0); Protein,Urine Trace (Negative); Specific Gravity,Urine 1.017 (1.001-1.035); Urobilinogen,Urine <2.0 mg/dL (<2.0)
[2020-04-23 00:23] VITALS: BP 118/75; PULSE 100; RESP 16; TEMP 98.1
--- NOTE | 2020-04-23 10:13 | P.MSEPDOC ---
Presenting Problems - Arrival Data Date of Arrival on Unit: 04/22/20 Time of Arrival on Unit: 22:00 Mode of Transport: Ambulatory - Complaint OB-Reason for Admission/Chief Complaint: Rule Out SROM, Headache Comment: pt. present to triage due to green fluid/discharge that started around 0730 as well as a headache that stated yesturday unrelieved by tylenol and lower pelvic pressure. Medical History - Information : 3 Para: 1 Term: 1 : 0 Abortions: Spontaneous or Elective: 1 Number of Living Children: 1 - Gestational Age Gestational Age by MEGHANA (wks/days): 36 Weeks and 3 Days Review of Systems - Review of Systems Constitutional: No problems Breast: No problems ENT: No problems Cardiovascular: No problems Respiratory: No problems Gastrointestinal: No problems Genitourinary: No problems Musculoskeletal: No problems Neurological: No problems Skin: No problems Vital Signs - Temperature Temperature: 98.1 F Temperature Source: Temporal Artery Scan - Pulse Pulse Oximetery Pulse Rate: 100 Pulse Assessment Method: Pulse Oximetry - Respirations Respiratory Rate: 16 Oxygen Delivery Method: Room Air O2 Sat by Pulse Oximetry: 99 - Blood Pressure Right Arm Blood Pressure: 118/75 Blood Pressure Mean: 89 Blood Pressure Source: Automatic Cuff Medical Screen Scoring (Pre) - Cervical Exam Dilation: 1-3 cm = 1 Membranes: Intact - Uterine Contractions Frequency: > 5 minutes apart = 1 Duration: > 40 seconds = 2 Intensity: N/A - Maternal Vital Signs Maternal Temperature: N/A Maternal Blood Pressure: N/A Signs of Preeclampsia: Headache = 1 Maternal Respirations: N/A - Assessment - Baby A Baseline FHR: 135 Heart Rate - NICHD Category: Category I (Normal) = 0 NST: Reactive Position: N/A Station: N/A - Total Score - Baby A Total Score - Baby A: 5 - Total Score - Baby B Total Score - Baby B: 5 - Total Score - Baby C Total Score - Baby C: 5 - Level of Risk - Baby A Level of Risk - Baby A: Low (0-5) - Level of Risk - Baby B Level of Risk - Baby B: Low (0-5) - Level of Risk - Baby C Level of Risk - Baby C: Low (0-5) Physician Notification (Pre) - Physician Notified Physician Notified Date: 04/23/20 Physician Notified Time: 22:54 New Order Received: Yes - Notification Comment Comment: UA sent and reviewed orders to discharge patient home Disposition - Disposition OB Disposition: Discharge to home Discharge Date: 04/23/20 Discharge Time: 00:24 I agree with the RN Medical Screening Exam: Yes Case reviewed; plan agreed upon as documented in EMR&OBIX.: Yes Diagnosis: FALSE LABOR BEFORE 37 COMPLETED WEEKS OF GEST, THIRD TRI
== END 2020-04-23 00:24 | disposition home or self-care (01) ==
LOC: FBPOP 22:00
PROVIDERS: ATTEND Obstetrics & Gynecology
DX: O47.03 False labor before 37 completed weeks of gestation, third trimester (principal); Z3A.36 36 weeks gestation of pregnancy
CPT/HCPCS: 59025; 84112; 81003; 81001; G0463; 99213

== ENCOUNTER 2020-04-25 22:11 | Outpatient (CLI) | payer OTHER ==
[2020-04-25 23:56] VITALS: BP 133/82; PULSE 93; RESP 16; TEMP 96.8
--- NOTE | 2020-04-26 08:43 | P.MSEPDOC ---
Presenting Problems - Arrival Data Date of Arrival on Unit: 04/25/20 Time of Arrival on Unit: 22:11 Mode of Transport: Ambulatory - Complaint OB-Reason for Admission/Chief Complaint: Pain Comment: Frequent lower abdominal and back pain. Medical History - Information : 3 Para: 1 Term: 1 : 0 Abortions: Spontaneous or Elective: 1 Number of Living Children: 1 - Gestational Age Gestational Age by MEGHANA (wks/days): 36 Weeks and 5 Days Review of Systems - Review of Systems Constitutional: No problems Breast: No problems ENT: No problems Cardiovascular: No problems Respiratory: No problems Gastrointestinal: No problems Genitourinary: No problems Musculoskeletal: No problems Neurological: No problems Skin: No problems Vital Signs - Temperature Temperature: 96.8 F Temperature Source: Temporal Artery Scan - Pulse Right Brachial Pulse Rate: 93 Pulse Assessment Method: Automatic Cuff - Respirations Respiratory Rate: 16 Oxygen Delivery Method: Room Air O2 Sat by Pulse Oximetry: 99 - Blood Pressure Right Arm Blood Pressure: 133/82 Blood Pressure Mean: 99 Blood Pressure Source: Automatic Cuff Medical Screen Scoring (Pre) - Cervical Exam Dilation: 1-3 cm = 1 Membranes: Intact - Uterine Contractions Frequency: > 5 minutes apart = 1 - Maternal Vital Signs Maternal Temperature: N/A Maternal Blood Pressure: N/A Signs of Preeclampsia: N/A Maternal Respirations: N/A - Maternal Trauma Maternal Trauma: N/A - Assessment - Baby A Baseline FHR: 140 Heart Rate - NICHD Category: Category I (Normal) = 0 NST: Reactive Position: N/A Station: N/A - Total Score - Baby A Total Score - Baby A: 2 - Total Score - Baby B Total Score - Baby B: 2 - Total Score - Baby C Total Score - Baby C: 2 - Level of Risk - Baby A Level of Risk - Baby A: Low (0-5) - Level of Risk - Baby B Level of Risk - Baby B: Low (0-5) - Level of Risk - Baby C Level of Risk - Baby C: Low (0-5) Physician Notification (Pre) - Physician Notified Physician Notified Date: 04/25/20 Physician Notified Time: 23:32 New Order Received: Yes - Notification Comment Comment: Dr. Lepe given report on pt. Pt c/o. VS WNL. Reactive NST. Contractions 6-7 minutes. Vag exam of /-2 with no change after 1 hr. Orders received to d/c pt to home. Disposition - Disposition OB Disposition: Discharge to home Discharge Date: 04/25/20 Discharge Time: 23:37 I agree with the RN Medical Screening Exam: Yes Case reviewed; plan agreed upon as documented in EMR&OBIX.: Yes Diagnosis: RELATED CONDITIONS, UNSPECIFIED, THIRD TRIMESTER
== END 2020-04-25 23:37 | disposition home or self-care (01) ==
LOC: FBPOP 22:11
PROVIDERS: ATTEND Obstetrics & Gynecology
DX: O26.93 Pregnancy related conditions, unspecified, third trimester (principal); Z3A.36 36 weeks gestation of pregnancy
CPT/HCPCS: 59025; G0463; 99213

== ENCOUNTER 2020-04-29 02:02 | Inpatient (IN) | payer OTHER ==
[2020-04-29] MEDS ORDERED: LIDOCAINE 0.5% (PF) 5 MG/ML (50 ML SDV) SQ PRN (02:17)
[2020-04-29] MEDS ORDERED: TERBUTALINE 1 MG/ML VIAL SQ PRN (02:17)
[2020-04-29] MEDS ORDERED: METHYLERGONOVINE 0.2 MG/ML 1 ML AMP IM PRN (02:17)
[2020-04-29] MEDS ORDERED: CARBOPROST TROMETHAMINE 250 MCG/ML 1 ML AMP IM PRN (02:17)
[2020-04-29] MEDS ORDERED: OXYTOCIN 10 UNIT/ML 1 ML VIAL IM PRN (02:17)
[2020-04-29] MEDS ORDERED: BUTORPHANOL 1 MG/ML 1 ML VIAL IV PRN (02:21)
[2020-04-29] MEDS ORDERED: AMPICILLIN 2,000 MG in SODIUM CHLORIDE 0.9% 100 ML IVPB ONE (02:30)
[2020-04-29] MEDS ORDERED: LACTATED RINGERS 1,000 ML IV SCH (02:30)
[2020-04-29 02:32] LABS: Basophils % (A) 0 %; Eosinophils % (A) 0 %; HCT 33.6 % (34.0-46.0); HGB 11.5 gm/dL (11.4-16.0); Lymphocytes # (A) 4.2 k/uL (1.0-4.8); Lymphocytes % (A) 45 %; MCH 30.2 pg (25.0-35.0); MCHC 34.1 g/dL (31.0-37.0); MCV 88.5 fL (80.0-100.0); Mean Platelet Volume 9.4; Monocytes # (A) 0.5 k/uL (0-1.0); Monocytes % (A) 5 %; Neutrophils # (A) 4.5 k/uL (1.3-7.7); Neutrophils % (A) 48 %; Platelet Count 162 k/uL (150-450); RDW 15.5 % (11.5-15.5); WBC 9.4 k/uL (3.8-10.6)
--- NOTE | 2020-04-29 03:57 | P.HPOB ---
History of Present Illness H&P Date: 04/29/20 Chief Complaint: Contractions, spontaneous rupture of membranes This is a 24-year-old female 4 para 1 with an estimated date of confinement of 05/18/2020, estimated gestational age of 37-2/7 weeks, who presents to labor and delivery with complaints of contractions and spontaneous rupture of membranes at approximately 145 this morning. She did have clear fluid. care has been with Dr. Mitchell and has been uncomplicated per patient. She has been feeling strong contractions since she felt rupture of membranes. labs: Group B streptococcus-negative One hour Glucola-111 Hepatitis B surface antigen-negative RPR-nonreactive Rubella-immune Blood type-O+ Antibody screen-negative HIV-nonreactive Hemoglobin-12 Random glucose-87 Pap smear-within normal limits GC/Chlamydia/Trichomonas-negative Obstetrical history: . History of 2 miscarriages spontaneous, history of 1 vaginal delivery full term induced for preeclampsia. Gynecologic history: History of chlamydia treated in the past. Review of Systems Constitutional: Denies chills, Denies fever Eyes: denies blurred vision, denies pain Ears, nose, mouth and throat: Denies headache, Denies sore throat Cardiovascular: Denies chest pain, Denies shortness of breath Respiratory: Denies cough Gastrointestinal: Reports abdominal pain Genitourinary: Reports pelvic pain, Reports Musculoskeletal: Reports low back pain Integumentary: Denies pruritus, Denies rash Neurological: Denies numbness, Denies weakness Psychiatric: Denies anxiety, Denies depression Past Medical History Past Medical History: No Reported History History of Any Multi-Drug Resistant Organisms: None Reported Past Surgical History: No Surgical Hx Reported Additional Past Surgical History / Comment(s): "lazy" eye surgery Past Psychological History: No Psychological Hx Reported Smoking Status: Never smoker Past Alcohol Use History: None Reported Past Drug Use History: None Reported Medications and Allergies Home Medications Medication Instructions Recorded Confirmed Type Iron 18 mg PO DAILY 04/13/20 04/29/20 History Allergies Allergy/AdvReac Type Severity Reaction Status Date / Time sertraline [From Zoloft] Allergy Severe Rash/Hives Verified 04/29/20 02:13 cephalexin [From Keflex] Allergy Rash/Hives Verified 04/29/20 02:13 Exam Osteopathic Statement: *. No significant issues noted on an osteopathic structural exam other than those noted in the History and Physical/Consult. Vital Signs Temp Pulse Resp BP Pulse Ox 04/29/20 02:21 97.4 F L 96 16 133/88 97 Intake and Output 04/28/20 04/28/20 04/29/20 14:59 22:59 06:59 Other: Weight 72.575 kg HEENT: Within normal limits Heart: Regular rate and rhythm Lungs: Clear to auscultation bilaterally Abdomen: Initially is 5 cm/70%/-2 station. She is grossly ruptured with clear fluid noted. Contractions are every 2-3 minutes heart tones are category 1 Extremities: Negative Homans Results Result Diagrams: 04/29/20 02:20 Abnormal Lab Results - Last 24 Hours (Table) 04/29/20 Range/Units 02:20 Hct 33.6 L (34.0-46.0) % Assessment and Plan (1) 37 weeks gestation of Current Visit: Yes Status: Acute Code(s): Z3A.37 - 37 WEEKS GESTATION OF SNOMED Code(s): 53829108 Plan: Patient is admitted for active labor. Initially group B streptococcus status was unknown and therefore antibiotics were ordered. She was given Stadol for pain control. Expectant management.
--- NOTE | 2020-04-29 04:00 | P.PROBDLV ---
Vaginal Delivery Note - . Vaginal Delivery Note: The patient fairly rapidly progressed to complete dilation shortly after arrival. Shortly after receiving her Stadol, she woke up and felt the urge to push. She precipitously delivered a viable male infant vaginally with scores of 9 at 1 minute and 9 at 5 minutes and infant weight of 6 lbs. 7 oz. with nursing staff present for delivery. Cord blood was obtained secondary to O+ blood type. After my arrival, placenta delivered shortly thereafter, intact, with a three-vessel cord and a marginal cord insertion. Uterus contracted well after oxytocin was given and uterine massage was carried out. Inspection of the perineum revealed a small first-degree perineal laceration. This area was anesthetized with 1% lidocaine and then sutured with 3-0 Vicryl suture in a running locked fashion. Estimated blood loss is approximately 100 mL's. Both mother and infant are in stable condition.
[2020-04-29] MEDS ORDERED: diphenhydrAMINE 50 MG CAP PO PRN (04:29)
[2020-04-29] MEDS ORDERED: OXYTOCIN 30 UNITS/500 ML NS 30 UNIT in SALINE 1 500ML.BAG IV SCH (04:29)
[2020-04-29] MEDS ORDERED: ACETAMINOPHEN TAB 325 MG TAB PO PRN (04:29)
[2020-04-29] MEDS ORDERED: diphenhydrAMINE 50 MG/ML 1 ML VIAL IVP PRN ×2 (04:29)
[2020-04-29] MEDS ORDERED: LANOLIN CREAM 5 GM TUBE TOPICAL PRN (04:29)
[2020-04-29] MEDS ORDERED: BENZOCAINE/MENTHOL SPRAY 1 GM/SPRAY AEROSOL TOPICAL PRN (04:29)
[2020-04-29] MEDS ORDERED: SIMETHICONE 80 MG CHEWABLE PO PRN (04:29)
[2020-04-29] MEDS ORDERED: ZOLPIDEM 5 MG TAB PO PRN (04:29)
[2020-04-29] MEDS ORDERED: HYDROCORTISONE 2.5% RECTAL CREAM 30 GM TUBE RECTAL PRN (04:29)
[2020-04-29] MEDS ORDERED: diphenhydrAMINE 25 MG CAP PO PRN (04:29)
[2020-04-29] MEDS ORDERED: ONDANSETRON 4 MG/2 ML VIAL IVP STA (05:46)
[2020-04-29] MEDS ORDERED: KETOROLAC 15 MG/ML 1 ML VIAL IVP STA (05:47)
[2020-04-29] MEDS ORDERED: AMPICILLIN 1,000 MG in SODIUM CHLORIDE 0.9% 50 ML IVPB SCH (06:30)
[2020-04-29] MEDS: SENNOSIDES-DOCUSATE SODIUM 1 EACH TAB PO SCH ×3 (07:45→22:52)
[2020-04-29] MEDS: IBUPROFEN 600 MG TAB PO PRN (17:47)
[2020-04-30 06:19] LABS: Basophils % (A) 0 %; Eosinophils % (A) 0 %; HCT 30.6 % (34.0-46.0); HGB 10.2 gm/dL (11.4-16.0); Lymphocytes # (A) 2.6 k/uL (1.0-4.8); Lymphocytes % (A) 26 %; MCH 29.9 pg (25.0-35.0); MCHC 33.4 g/dL (31.0-37.0); MCV 89.3 fL (80.0-100.0); Mean Platelet Volume 9.2; Monocytes # (A) 0.5 k/uL (0-1.0); Monocytes % (A) 5 %; Neutrophils # (A) 6.8 k/uL (1.3-7.7); Neutrophils % (A) 68 %; Platelet Count 110 k/uL (150-450); RBC 3.43 m/uL (3.80-5.40); RDW 15.9 % (11.5-15.5)
[2020-04-30] MEDS: SENNOSIDES-DOCUSATE SODIUM 1 EACH TAB PO SCH (07:37)
[2020-04-30 09:23] VITALS: BP 118/80; PULSE 79; RESP 16; TEMP 98.1
[2020-04-30] MEDS: IBUPROFEN 600 MG TAB PO PRN (09:53)
--- NOTE | 2020-04-30 11:40 | P.DS ---
Providers Date of admission: 04/29/20 02:19 Expected date of discharge: 04/30/20 Attending physician: Lucius Mitchell Primary care physician: Stated None - Discharge Diagnosis(es) (1) 37 weeks gestation of Current Visit: Yes Status: Acute Hospital Course: This is a 24-year-old female 3 para 1 at 37-2/7 weeks who presented in active labor. She delivered rather precipitously a viable male infant with scores of 9 at 1 minute and 9 at 5 minutes and infant weight of 6 lbs. 7 oz. Her course has been uncomplicated. Lochia has been decreasing. Pain is well-controlled. She is bottle feeding. Vital signs are stable. Abdomen is soft with fundus firm and nontender. Extremities show negative Homans. Impression is status post vaginal delivery day #1. Plan is to discharge home today. Routine instructions are given. She will be given a prescription for ibuprofen. She is advised to follow up with Dr. Mitchell in the office in 6 weeks for a check. She is advised to call the office if she has any further questions or concerns prior to her appointment time. She was advised that her platelet count was slightly low at 110,000 this morning. She is advised to call the office if she has any heavy bleeding. Procedures: Spontaneous vaginal delivery of a viable male infant on 04/29/2020 Patient Condition at Discharge: Stable Plan - Discharge Summary New Discharge Prescriptions: New Ibuprofen [Motrin] 600 mg PO Q6HR PRN #60 tab PRN Reason: Mild Pain Or Fever >= 100.5 Continue Iron 18 mg PO DAILY Discharge Medication List Iron 18 mg PO DAILY 04/13/20 [History] Ibuprofen [Motrin] 600 mg PO Q6HR PRN #60 tab 04/30/20 [Rx] Follow up Appointment(s)/Referral(s): Lucius Mitchell DO [Doctor of Osteopathic Medicine] - 6 Weeks Activity/Diet/Wound Care/Special Instructions: Instructions 1. Do not begin any exercise program for 3 weeks. 2. Do not resume sexual relations for 3 weeks or longer if uncomfortable. 3. You may take tub baths or showers at any time. 4. You may use tampons if desired after 3 weeks. 5. Keep the area of episiotomy (stitches) clean and dry. 6. If you are not nursing, wear a good fitting, supportive bra during the day and limit fluid intake for at least 1 week to prevent breast engorgement. 7. Call the office, [phone], within the next week to make appointment for your 6 week checkup if it has not already been made. 8. Report any of the following occurrences to the doctor promptly: a. Heavy, excessive bleeding b. Chills, fever c. Burning or frequency of urination d. Pain or redness and breasts if nursing e. Increasing pain or swelling in episiotomy (stitches). In addition to the above instructions, the following additional should be followed: 1. No heavy lifting or straining (exercising) until after 6 week checkup. 2. Keep abdominal incision clean and dry: You may wear a dressing if more comfortable. 3. Make office appointment for 10 days after going home or as instructed by her doctor. Discharge Disposition: HOME SELF-CARE
== END 2020-04-30 13:00 | disposition home or self-care (01) | DRG 807 ==
LOC: FBPOP 02:02 → 4FBP 02:19
PROVIDERS: ADMIT Obstetrics & Gynecology; ATTEND Obstetrics & Gynecology
PROC: 0HQ9XZZ Repair Perineum Skin, External Approach (ICD-10-PCS; principal; 2020-04-29)
PROC: 10E0XZZ Delivery of Products of Conception, External Approach (ICD-10-PCS; principal; 2020-04-29)
DX: O62.3 Precipitate labor (principal); Z37.0 Single live birth; O43.123 Velamentous insertion of umbilical cord, third trimester; O70.0 First degree perineal laceration during delivery; Z3A.37 37 weeks gestation of pregnancy; Z79.899 Other long term (current) drug therapy; Z88.1 Allergy status to other antibiotic agents; Z88.8 Allergy status to other drugs, medicaments and biological substances
CPT/HCPCS: 85025; 86850; 86900; 86901; 99213

== ENCOUNTER 2021-11-15 08:30 | Emergency (ER) | payer OTHER ==
--- NOTE | 2021-11-15 09:08 | ED ---
Abdominal Pain HPI - General Chief Complaint: Abdominal Pain Stated Complaint: Abd cramping Time Seen by Provider: 11/15/21 08:33 Source: patient, RN notes reviewed Mode of arrival: ambulatory Limitations: no limitations - History of Present Illness Initial Comments: 26-year-old female presents emergency Department chief complaint abdominal cramping. Patient states that she was a few weeks ago. Patient states started having mild cramping without vaginal bleeding or vaginal discharge. Patient is A1 approximately 16 weeks . Patient denies any fevers or chills slight nausea without significant vomiting. Patient denies any cough or cold-like symptoms. No contacts that have been sick. No chest pain or shortness of breath no localized abdominal pain just mild cramping. - Related Data Home Medications Medication Instructions Recorded Confirmed Wun-Nrvc-Pxwmv Acid 1 cap PO DAILY 11/15/21 11/15/21 [-U Capsule (formulary)] Previous Rx's Medication Instructions Recorded Amoxic-Pot Clav 875-125Mg 1 tab PO Q12HR #14 tab 11/15/21 [Augmentin 875-125] Allergies Allergy/AdvReac Type Severity Reaction Status Date / Time sertraline [From Zoloft] Allergy Severe Rash/Hives Verified 11/15/21 11:06 cephalexin [From Keflex] Allergy Rash/Hives Verified 11/15/21 11:06 Review of Systems ROS Statement: Those systems with pertinent positive or pertinent negative responses have been documented in the HPI. ROS Other: All systems not noted in ROS Statement are negative. Past Medical History Past Medical History: No Reported History History of Any Multi-Drug Resistant Organisms: None Reported Past Surgical History: No Surgical Hx Reported Additional Past Surgical History / Comment(s): "lazy" eye surgery Past Psychological History: No Psychological Hx Reported Smoking Status: Vaper Past Alcohol Use History: Occasional Past Drug Use History: None Reported - Past Family History Mother Family Medical History: No Reported History Father Family Medical History: No Reported History General Exam Limitations: no limitations General appearance: alert, in no apparent distress Head exam: Present: atraumatic, normocephalic, normal inspection Eye exam: Present: normal appearance, PERRL, EOMI. Absent: scleral icterus, conjunctival injection, periorbital swelling ENT exam: Present: normal exam, mucous membranes moist Neck exam: Present: normal inspection. Absent: tenderness, meningismus, lymphadenopathy Respiratory exam: Present: normal lung sounds bilaterally. Absent: respiratory distress, wheezes, rales, rhonchi, stridor Cardiovascular Exam: Present: regular rate, normal rhythm, normal heart sounds. Absent: systolic murmur, diastolic murmur, rubs, gallop, clicks GI/Abdominal exam: Present: soft, normal bowel sounds. Absent: distended, tenderness, guarding, rebound, rigid Course Vital Signs 11/15/21 11/15/21 08:31 09:15 Temperature 98.1 F Pulse Rate 82 92 Respiratory 18 16 Rate Blood Pressure 166/66 124/56 O2 Sat by Pulse 100 99 Oximetry Medical Decision Making - Medical Decision Making 26-year-old female presents from for abdominal cramping . Patient did have a live single IUP at 6 weeks there is question of 20 versus large subchorionic infantoma. does have evidence urinary tract infection patient was placed on Augmentin. Patient lists ALLERGY to Keflex. Patient advised to follow-up with [facility] return parameters discussed. - Lab Data Lab Results 11/15/21 Range/Units 09:15 Urine Color Yellow Urine Appearance Cloudy H (Clear) Urine pH 6.5 (5.0-8.0) Ur Specific [place] 1.021 (1.001-1.035) Urine Protein 1+ H (Negative) Urine Glucose (UA) Negative (Negative) Urine Ketones Trace H (Negative) Urine Blood Small H (Negative) Urine Nitrite Negative (Negative) Urine Bilirubin Negative (Negative) Urine Urobilinogen <2.0 (<2.0) mg/dL Ur Leukocyte Esterase Large H (Negative) Urine RBC 15 H (0-5) /hpf Urine WBC >182 H (0-5) /hpf Urine WBC Clumps Occasional H (None) /hpf Ur Squamous Epith Cells 33 H (0-4) /hpf Urine Bacteria Rare H (None) /hpf Urine Mucus Few H (None) /hpf Disposition Clinical Impression: , UTI (urinary tract infection) Disposition: HOME SELF-CARE Condition: Stable Instructions (If sedation given, give patient instructions): Urinary Tract Infection in Women (ED) Additional Instructions: Please return to the Emergency Department if symptoms worsen or any other concerns. Prescriptions: Amoxic-Pot Clav 875-125Mg [Augmentin 875-125] 1 tab PO Q12HR #14 tab Is patient prescribed a controlled substance at d/c from ED?: No Referrals: None,Stated [Primary Care Provider] - 1-2 days Time of Disposition: 11:24
[2021-11-15 09:52] LABS: Appearance,Urine Cloudy (Clear); Bacteria,Urine Rare /hpf; Bilirubin,Urine Negative (Negative); Blood,Urine Small (Negative); Color,Urine Yellow; Glucose,Urine (UA) Negative (Negative); Ketones,Urine Trace (Negative); Leukocyte Esterase,Urine Large (Negative); Mucus,Urine Few /hpf; Nitrite,Urine Negative (Negative); PH, Urine 6.5 (5.0-8.0); Protein,Urine 1+ (Negative); RBC,Urine 15 /hpf (0-5); Specific Gravity,Urine 1.021 (1.001-1.035); Squamous Epithelial Cell,Urine 33 /hpf (0-4); Urobilinogen,Urine <2.0 mg/dL (<2.0); WBC,Urine >182 /hpf (0-5)
--- NOTE | 2021-11-15 11:10 | US ---
EXAM: US , Transvaginal CLINICAL HISTORY: ITS. The REASON US Reason: pain, TECHNIQUE: Real-time transvaginal obstetrical ultrasound of the maternal pelvis and a first trimester with image documentation. Transvaginal imaging was used for better evaluation of the fetus and adnexa. COMPARISON: No relevant prior studies available. FINDINGS: Gestation: Live intrauterine measuring 6 weeks 0 days with heart rate of 121 bpm. Adjacent to the gestational sac, there is another cystic structure, with more complex contents. This could reflect another gestational sac in the setting of twin (though no yolk sac or pole is identified within this structure). A subchorionic hematoma involving approximately 40% of the sac circumference is also possible. Recommend follow-up. Placenta/amniotic fluid: Cannot be adequately evaluated due to the early gestational age. Uterus/cervix: As above. No myometrial mass. Ovaries: Presumed corpus luteum to the left ovary. No sonographic findings of torsion. Unremarkable right ovary. Free fluid: Trace free pelvic fluid IMPRESSION: Live intrauterine measuring 6 weeks 0 days with heart rate of 121 bpm. Adjacent to the gestational sac, there is another cystic structure, with more complex contents. This could reflect another gestational sac in the setting of twin (though no yolk sac or pole is identified within this structure). A subchorionic hematoma involving approximately 40% of the sac circumference is also possible. Recommend follow-up.
[2021-11-15 12:31] VITALS: BP 110/70; PULSE 73; RESP 18; TEMP 98.4
== END 2021-11-15 12:29 | disposition home or self-care (01) ==
LOC: EC 08:30
DX: O23.41 Unspecified infection of urinary tract in pregnancy, first trimester (principal); O99.331 Smoking (tobacco) complicating pregnancy, first trimester; N39.0 Urinary tract infection, site not specified; F17.290 Nicotine dependence, other tobacco product, uncomplicated; Z88.8 Allergy status to other drugs, medicaments and biological substances; Z3A.01 Less than 8 weeks gestation of pregnancy; Z88.1 Allergy status to other antibiotic agents
CPT/HCPCS: 76801; 76802; 76817; 81001; 87086; 99284

== ENCOUNTER 2021-12-08 22:21 | Emergency (ER) | payer OTHER ==
--- NOTE | 2021-12-09 02:09 | ED ---
Abdominal Pain HPI - General Chief Complaint: Abdominal Pain Stated Complaint: ABD Pain Time Seen by Provider: 12/09/21 01:51 Source: patient, RN notes reviewed, old records reviewed Mode of arrival: ambulatory Limitations: no limitations - History of Present Illness Initial Comments: Physical 26-year-old female with known about 8-10 weeks. Patient has had a prior ultrasound which mentioned possibly some complications. Patient presents today for repeat ultrasound as a follow-up. The pain is similar to low was experiencing earlier and no bleeding no nausea vomiting MD Complaint: abdominal pain -: week(s) Location: suprapubic Radiation: suprapubic Migration to: suprapubic Severity: moderate Quality: cramping Consistency: intermittent Improves With: nothing Worsens With: nothing Associated Symptoms: nausea Treatments Prior to Arrival: other (0) - Related Data Home Medications Medication Instructions Recorded Confirmed Tty-Lyfo-Bbfyi Acid 1 cap PO DAILY 11/15/21 11/15/21 [-U Capsule (formulary)] Previous Rx's Medication Instructions Recorded Amoxic-Pot Clav 875-125Mg 1 tab PO Q12HR #14 tab 11/15/21 [Augmentin 875-125] Allergies Allergy/AdvReac Type Severity Reaction Status Date / Time sertraline [From Zoloft] Allergy Severe Rash/Hives Verified 11/15/21 11:06 cephalexin [From Keflex] Allergy Rash/Hives Verified 11/15/21 11:06 Review of Systems ROS Statement: Those systems with pertinent positive or pertinent negative responses have been documented in the HPI. ROS Other: All systems not noted in ROS Statement are negative. Past Medical History Past Medical History: No Reported History History of Any Multi-Drug Resistant Organisms: None Reported Past Surgical History: No Surgical Hx Reported Additional Past Surgical History / Comment(s): "lazy" eye surgery Past Psychological History: No Psychological Hx Reported Smoking Status: Former smoker Past Alcohol Use History: None Reported Past Drug Use History: None Reported - Past Family History Mother Family Medical History: No Reported History Father Family Medical History: No Reported History General Exam Limitations: no limitations General appearance: alert, in no apparent distress Head exam: Present: atraumatic, normocephalic, normal inspection Eye exam: Present: normal appearance, PERRL, EOMI. Absent: scleral icterus, conjunctival injection, periorbital swelling ENT exam: Present: normal exam, mucous membranes moist Neck exam: Present: normal inspection. Absent: tenderness, meningismus, lymphadenopathy Respiratory exam: Present: normal lung sounds bilaterally. Absent: respiratory distress, wheezes, rales, rhonchi, stridor Cardiovascular Exam: Present: regular rate, normal rhythm, normal heart sounds. Absent: systolic murmur, diastolic murmur, rubs, gallop, clicks GI/Abdominal exam: Present: soft, normal bowel sounds. Absent: distended, tenderness, guarding, rebound, rigid Extremities exam: Present: normal inspection, full ROM, normal capillary refill. Absent: tenderness, pedal edema, joint swelling, calf tenderness Back exam: Present: normal inspection Neurological exam: Present: alert, oriented X3, CN II-XII intact Psychiatric exam: Present: normal affect, normal mood Skin exam: Present: warm, dry, intact, normal color. Absent: rash Course Vital Signs 12/08/21 12/09/21 12/09/21 22:59 01:02 02:24 Temperature 97.9 F 97.6 F 97.9 F Pulse Rate 85 77 69 Respiratory 16 15 16 Rate Blood Pressure 132/77 113/64 112/78 O2 Sat by Pulse 98 98 100 Oximetry - Reevaluation(s) Reevaluation #1: 12/09/21 Medical record is reviewed Patient improved here in the emergency department Patient informed results and questions answered Medical Decision Making - Medical Decision Making 26 female presents is presenting to get abdominal ultrasound for abdominal pain and . Patient informed that we will not nauseous until the morning at this time she would like to make an outpatient appointment to get ultrasound - Lab Data Lab Results 12/09/21 Range/Units 02:28 Urine Color Light Yellow Urine Appearance Cloudy H (Clear) Urine pH 7.5 (5.0-8.0) Ur Specific [place] 1.013 (1.001-1.035) Urine Protein Negative (Negative) Urine Glucose (UA) Negative (Negative) Urine Ketones 2+ H (Negative) Urine Blood Negative (Negative) Urine Nitrite Negative (Negative) Urine Bilirubin Negative (Negative) Urine Urobilinogen <2.0 (<2.0) mg/dL Ur Leukocyte Esterase Large H (Negative) Urine RBC 2 (0-5) /hpf Urine WBC 30 H (0-5) /hpf Ur Squamous Epith Cells 23 H (0-4) /hpf Amorphous Sediment Rare H (None) /hpf Urine Bacteria Rare H (None) /hpf Urine Mucus Rare H (None) /hpf Disposition Clinical Impression: Abdominal pain, Abdominal pain affecting Disposition: HOME SELF-CARE Condition: Undetermined Instructions (If sedation given, give patient instructions): Abdominal Pain in (ED) Is patient prescribed a controlled substance at d/c from ED?: No Referrals: None,Stated [Primary Care Provider] - 1-2 days Time of Disposition: 02:10
[2021-12-09 02:24] VITALS: BP 112/78; PULSE 69; RESP 16; TEMP 97.9
[2021-12-09 03:13] LABS: Amorphous Sediment,Urine Rare /hpf; Appearance,Urine Cloudy (Clear); Bacteria,Urine Rare /hpf; Bilirubin,Urine Negative (Negative); Blood,Urine Negative (Negative); Color,Urine Light Yellow; Glucose,Urine (UA) Negative (Negative); Ketones,Urine 2+ (Negative); Leukocyte Esterase,Urine Large (Negative); Mucus,Urine Rare /hpf; Nitrite,Urine Negative (Negative); PH, Urine 7.5 (5.0-8.0); Protein,Urine Negative (Negative); RBC,Urine 2 /hpf (0-5); Specific Gravity,Urine 1.013 (1.001-1.035); Squamous Epithelial Cell,Urine 23 /hpf (0-4); Urobilinogen,Urine <2.0 mg/dL (<2.0); WBC,Urine 30 /hpf (0-5)
== END 2021-12-09 02:25 | disposition home or self-care (01) ==
LOC: EC 22:21
DX: O26.891 Other specified pregnancy related conditions, first trimester (principal); R10.30 Lower abdominal pain, unspecified; Z88.1 Allergy status to other antibiotic agents; Z88.8 Allergy status to other drugs, medicaments and biological substances
CPT/HCPCS: 81001; 87086; 99284

== ENCOUNTER 2022-01-24 16:08 | Emergency (ER) | payer OTHER ==
[2022-01-24 17:32] VITALS: TEMP 98.1
[2022-01-24 18:45] LABS: Basophils % (A) 0 %; Eosinophils % (A) 1 %; HCT 36.2 % (34.0-46.0); HGB 12.8 gm/dL (11.4-16.0); Lymphocytes % (A) 27 %; MCH 30.4 pg (25.0-35.0); MCHC 35.3 g/dL (31.0-37.0); Mean Platelet Volume 7.8; Monocytes # (A) 0.3 k/uL (0-1.0); Monocytes % (A) 3 %; Neutrophils # (A) 4.9 k/uL (1.3-7.7); Neutrophils % (A) 68 %; Platelet Count 221 k/uL (150-450); RDW 13.3 % (11.5-15.5); WBC 7.3 k/uL (3.8-10.6)
[2022-01-24 19:03] LABS: HCG,Qualitative Serum Detected
[2022-01-24 19:07] LABS: ALT 15 U/L (4-34); AST 20 U/L (14-36); African American GFR (CKD) >90 (>60 ml/min/1.73 sqM); Albumin 4.6 g/dL (3.5-5.0); Alkaline Phosphatase 81 U/L (38-126); Anion Gap 9 mmol/L; Blood Urea Nitrogen 7 mg/dL (7-17); Calcium 9.5 mg/dL (8.4-10.2); Carbon Dioxide 22 mmol/L (22-30); Chloride 106 mmol/L (98-107); Glucose 81 mg/dL (74-99); Non-African American GFR(CKD) >90 (>60 ml/min/1.73 sqM); Potassium 4.4 mmol/L (3.5-5.1); Sodium 137 mmol/L (137-145); Total Bilirubin 0.2 mg/dL (0.2-1.3); Total Protein 7.5 g/dL (6.3-8.2)
[2022-01-24] MEDS ORDERED: ACETAMINOPHEN TAB 500 MG TAB PO STA (19:20)
--- NOTE | 2022-01-24 19:20 | ED ---
General Adult HPI - General Chief complaint: Vaginal Bleeding Stated complaint: SOB,16 wks preg Time Seen by Provider: 01/24/22 18:35 Source: patient, RN notes reviewed, old records reviewed Mode of arrival: ambulatory - History of Present Illness Initial comments: Patient is a 26-year-old female with past medical history remarkable for vaginal bleeding. She is approximately 16 weeks . She is . No other significant medical history. Presents over concern for vaginal spotting over the last 3 days. States there is a small amount of blood in her tampon as well as abdominal cramping. Comes and goes. Denies nausea or vomiting. Denies any other acute complaints at this time. Has not yet followed up with COUNTER WAITRESS/WAITER. Presents for further evaluation at this time. No history of clotting disorders. - Related Data Home Medications Medication Instructions Recorded Confirmed Qfc-[id number] Acid 1 cap PO DAILY 11/15/21 01/24/22 [-U Capsule (formulary)] Previous Rx's Medication Instructions Recorded Nitrofurantoin Monohyd/M-Cryst 100 mg PO Q12HR #6 cap 01/24/22 [Macrobid] Allergies Allergy/AdvReac Type Severity Reaction Status Date / Time sertraline [From Zoloft] Allergy Severe Rash/Hives Verified 01/24/22 19:01 cephalexin [From Keflex] Allergy Rash/Hives Verified 01/24/22 19:01 Review of Systems ROS Statement: Those systems with pertinent positive or pertinent negative responses have been documented in the HPI. Review of Systems: CONST: Denies fever EYES: Denies blurry vision ENT: Denies nasal congestion C/V: Denies Chest pain RESP: Denies shortness of breath GI: Denies abdominal pain : Endorses vaginal spotting SKIN: Denies rash. MSK: Denies joint pain. NEURO: Denies headache ROS Other: All systems not noted in ROS Statement are negative. Past Medical History Past Medical History: No Reported History History of Any Multi-Drug Resistant Organisms: None Reported Past Surgical History: No Surgical Hx Reported Additional Past Surgical History / Comment(s): "lazy" eye surgery Past Psychological History: No Psychological Hx Reported Smoking Status: Former smoker Past Alcohol Use History: None Reported Past Drug Use History: None Reported - Past Family History Mother Family Medical History: No Reported History Father Family Medical History: No Reported History General Exam - General Exam Comments Initial Comments: General: Appears in no acute distress. HEAD: Normal with no signs of head trauma. EYES: PERRLA, EOMI, conjunctiva normal, no discharge. ENT: Hearing grossly intact, normal oropharynx. RESPIRATORY: Clear breath sounds bilaterally. No wheezes, rales, or rhonchi. C/V: Regular rate and rhythm. S1 and S2 auscultated, no edema, peripheral pulses 2+ and intact throughout ABD: Abd is soft, nontender, nondistended EXT: Normal range of motion, no obvious deformity SKIN: No rashes or lesions observed on exposed skin. NEURO: Alert and oriented 4. Course Vital Signs 01/24/22 17:28 Temperature 98.1 F Pulse Rate 97 Respiratory 18 Rate Blood Pressure 110/72 O2 Sat by Pulse 99 Oximetry Medical Decision Making - Medical Decision Making Based on the patient's presentation and physical exam, I'm concerned for possible threatened miscarriage the patient. She has not yet sought COUNTER WAITRESS/WAITER care due to insurance issues. We will obtain basic laboratory studies, type and screen. We also obtain an ultrasound due to vaginal spotting. She was in agreement this plan. Vital signs within acceptable limits. No symptoms suggestive of acute anemia at this time. She'll be given a small dose of Tylenol. Patient's laboratory studies are unremarkable. Hemoglobin and coags are within acceptable limits. Patient does have a contaminated catch urine with rare bacteria present. ultrasound revealed a 16-week-old gestation. Intrauterine . No complications. Heart rate 140 bpm. Patient's blood type is O+. I updated the patient. She is asymptomatic at this time. I stressed the importance for follow-up with COUNTER WAITRESS/WAITER. She will attempt to contact follow-up wit h COUNTER WAITRESS/WAITER. She already has vitamins at home and I stressed that she take these. She'll be treated for asymptomatic bacteriuria. Patient was in agreement this plan. I will provide the patient with a prescription for Macrobid. I instructed the patient to follow up with their PCP in the next 1-3 days. I provided contact information for follow up with COUNTER WAITRESS/WAITER. I explained that the patient should return to the emergency department if they experience any worsening symptoms. Strict return precautions were discussed with the patient. The patient expressed understanding of these instructions. I answered all questions that the patient had. The patient was discharged home in good condition with their prescriptions and follow up information. - Lab Data Result diagrams: 01/24/22 18:09 01/24/22 18:09 Lab Results 01/24/22 01/24/22 01/24/22 Range/Units 18:09 18:09 18:09 WBC 7.3 (3.8-10.6) k/uL RBC 4.20 (3.80-5.40) m/uL Hgb 12.8 (11.4-16.0) gm/dL Hct 36.2 (34.0-46.0) % MCV 86.0 (80.0-100.0) fL MCH 30.4 (25.0-35.0) pg MCHC 35.3 (31.0-37.0) g/dL RDW 13.3 (11.5-15.5) % Plt Count 221 (150-450) k/uL MPV 7.8 Neutrophils % 68 % Lymphocytes % 27 % Monocytes % 3 % Eosinophils % 1 % Basophils % 0 % Neutrophils # 4.9 (1.3-7.7) k/uL Lymphocytes # 2.0 (1.0-4.8) k/uL Monocytes # 0.3 (0-1.0) k/uL Eosinophils # 0.0 (0-0.7) k/uL Basophils # 0.0 (0-0.2) k/uL PT 9.9 (9.0-12.0) sec INR 0.9 (<1.2) APTT 27.1 (22.0-30.0) sec Sodium 137 (137-145) mmol/L Potassium 4.4 (3.5-5.1) mmol/L Chloride 106 (98-107) mmol/L Carbon Dioxide 22 (22-30) mmol/L Anion Gap 9 mmol/L BUN 7 (7-17) mg/dL Creatinine 0.38 L (0.52-1.04) mg/dL Est GFR (CKD-EPI)AfAm >90 (>60 ml/min/1.73 sqM) Est GFR (CKD-EPI)NonAf >90 (>60 ml/min/1.73 sqM) Glucose 81 (74-99) mg/dL Calcium 9.5 (8.4-10.2) mg/dL Total Bilirubin 0.2 (0.2-1.3) mg/dL AST 20 (14-36) U/L ALT 15 (4-34) U/L Alkaline Phosphatase 81 (38-126) U/L Total Protein 7.5 (6.3-8.2) g/dL Albumin 4.6 (3.5-5.0) g/dL HCG, Qual Detected HCG, Quant mIU/mL Urine Color Urine Appearance (Clear) Urine pH (5.0-8.0) Ur Specific [place] (1.001-1.035) Urine Protein (Negative) Urine Glucose (UA) (Negative) Urine Ketones (Negative) Urine Blood (Negative) Urine Nitrite (Negative) Urine Bilirubin (Negative) Urine Urobilinogen (<2.0) mg/dL Ur Leukocyte Esterase (Negative) Urine RBC (0-5) /hpf Urine WBC (0-5) /hpf Ur Squamous Epith Cells (0-4) /hpf Urine Bacteria (None) /hpf Hyaline Casts (0-2) /lpf Urine Mucus (None) /hpf Blood Type Blood Type Recheck Bld Type Recheck Status 01/24/22 01/24/22 01/24/22 Range/Units 18:10 18:10 19:17 WBC (3.8-10.6) k/uL RBC (3.80-5.40) m/uL Hgb (11.4-16.0) gm/dL Hct (34.0-46.0) % MCV (80.0-100.0) fL MCH (25.0-35.0) pg MCHC (31.0-37.0) g/dL RDW (11.5-15.5) % Plt Count (150-450) k/uL MPV Neutrophils % % Lymphocytes % % Monocytes % % Eosinophils % % Basophils % % Neutrophils # (1.3-7.7) k/uL Lymphocytes # (1.0-4.8) k/uL Monocytes # (0-1.0) k/uL Eosinophils # (0-0.7) k/uL Basophils # (0-0.2) k/uL PT (9.0-12.0) sec INR (<1.2) APTT (22.0-30.0) sec Sodium (137-145) mmol/L Potassium (3.5-5.1) mmol/L Chloride (98-107) mmol/L Carbon Dioxide (22-30) mmol/L Anion Gap mmol/L BUN (7-17) mg/dL Creatinine (0.52-1.04) mg/dL Est GFR (CKD-EPI)AfAm (>60 ml/min/1.73 sqM) Est GFR (CKD-EPI)NonAf (>60 ml/min/1.73 sqM) Glucose (74-99) mg/dL Calcium (8.4-10.2) mg/dL Total Bilirubin (0.2-1.3) mg/dL AST (14-36) U/L ALT (4-34) U/L Alkaline Phosphatase (38-126) U/L Total Protein (6.3-8.2) g/dL Albumin (3.5-5.0) g/dL HCG, Qual HCG, Quant 98279.5 mIU/mL Urine Color Yellow Urine Appearance Cloudy H (Clear) Urine pH 6.0 (5.0-8.0) Ur Specific [place] 1.022 (1.001-1.035) Urine Protein Trace H (Negative) Urine Glucose (UA) Negative (Negative) Urine Ketones Trace H (Negative) Urine Blood Negative (Negative) Urine Nitrite Negative (Negative) Urine Bilirubin Negative (Negative) Urine Urobilinogen <2.0 (<2.0) mg/dL Ur Leukocyte Esterase Large H (Negative) Urine RBC 3 (0-5) /hpf Urine WBC 90 H (0-5) /hpf Ur Squamous Epith Cells 13 H (0-4) /hpf Urine Bacteria Rare H (None) /hpf Hyaline Casts 1 (0-2) /lpf Urine Mucus Rare H (None) /hpf Blood Type O Positive Blood Type Recheck O Pos Bld Type Recheck Status No Disposition Clinical Impression: Threatened miscarriage Disposition: HOME SELF-CARE Condition: Good Instructions (If sedation given, give patient instructions): Threatened Miscarriage (ED) Prescriptions: Nitrofurantoin Monohyd/M-Cryst [Macrobid] 100 mg PO Q12HR #6 cap Is patient prescribed a controlled substance at d/c from ED?: No Referrals: Justin Fields MD [Primary Care Provider] - 1-2 days Comfort Delaney MD [STAFF PHYSICIAN] - 1-2 days Time of Disposition: 20:25
[2022-01-24 19:40] LABS: INR 0.9 (<1.2); Partial Thromboplastin Time 27.1 sec (22.0-30.0); Prothrombin Time 9.9 sec (9.0-12.0)
[2022-01-24 19:42] LABS: Appearance,Urine Cloudy (Clear); Bacteria,Urine Rare /hpf; Bilirubin,Urine Negative (Negative); Blood,Urine Negative (Negative); Color,Urine Yellow; Glucose,Urine (UA) Negative (Negative); Hyaline Casts,Urine 1 /lpf (0-2); Ketones,Urine Trace (Negative); Leukocyte Esterase,Urine Large (Negative); Mucus,Urine Rare /hpf; Nitrite,Urine Negative (Negative); Protein,Urine Trace (Negative); RBC,Urine 3 /hpf (0-5); Specific Gravity,Urine 1.022 (1.001-1.035); Squamous Epithelial Cell,Urine 13 /hpf (0-4); Urobilinogen,Urine <2.0 mg/dL (<2.0); WBC,Urine 90 /hpf (0-5)
--- NOTE | 2022-01-24 20:18 | US ---
EXAMINATION TYPE: US OB >= 14 wk fetus DATE OF EXAM: 01/24/2022 COMPARISON: Prior ultrasound November 15, 2021 CLINICAL HISTORY: preg, vaginal bleedingspotting yesterday TECHNIQUE: Transabdominal (TA) GESTATIONAL AGE / DATING Physician Established: Not yet established Dates by LMP: LMP unknown Dates by First Scan: (16 weeks/0 days) EDC: 07/11/2022 Dates by Current Scan: (16 weeks/4 days) EDC: 07/07/2022 Beta HCG (if available): Not available at this time SURVEY IUP: Single PLACENTA: Fundal PREVIA: No Previa KERRI: 12.45 cm Normal CERVICAL LENGTH (transabdominal: norm > 3.0cm): 3.1 cm BIOMETRY PRESENTATION: Variable LIE: Variable BPD: 3.50 cm 16 weeks / 5 days HC: 12.92 cm 16 weeks / 4 days AC: 10.82 cm 16 weeks / 5 days FL: 2.08 cm 16 weeks / 1 days ESTIMATED WEIGHT IN GRAMS: 158.46 grams ESTIMATED WEIGHT IN LBS/OZ: 0 lbs. 6 oz. WEIGHT PERCENTAGE BASED ON ESTABLISHED DATES: 74.9% HC/AC: 1.19 cm Normal FL/AC: 19.25 cm Normal HEART RATE: 140 bpm RHYTHM: Normal Single live intrauterine gestation is now present. No cervical thinning. No placenta previa. Estimate d amniotic fluid index within normal limits. Variable presentation fetus. biometric measurement s congruent and within normal limits. IMPRESSION: As above.
[2022-01-24 20:56] VITALS: BP 137/84; PULSE 74; RESP 15
== END 2022-01-24 20:57 | disposition home or self-care (01) ==
LOC: EC 16:08
DX: O20.0 Threatened abortion (principal); Z3A.16 16 weeks gestation of pregnancy; Z87.891 Personal history of nicotine dependence
CPT/HCPCS: 36415; 76805; 80053; 81001; 84702; 84703; 85025; 85610; 85730; 86900; 86901; 87086; 99285

== ENCOUNTER 2022-07-04 05:57 | Inpatient (IN) | payer OTHER ==
[2022-07-04] MEDS ORDERED: TERBUTALINE 1 MG/ML VIAL SQ PRN (06:09)
[2022-07-04] MEDS ORDERED: METHYLERGONOVINE 0.2 MG/ML 1 ML AMP IM PRN (06:09)
[2022-07-04] MEDS ORDERED: miSOPROStoL 200 MCG TAB PO PRN (06:09)
[2022-07-04] MEDS ORDERED: LIDOCAINE 0.5% (PF) 5 MG/ML (50 ML SDV) SQ PRN (06:09)
[2022-07-04] MEDS ORDERED: OXYTOCIN 10 UNIT/ML 1 ML VIAL IM PRN (06:09)
[2022-07-04] MEDS ORDERED: CARBOPROST TROMETHAMINE 250 MCG/ML 1 ML AMP IM PRN (06:09)
[2022-07-04] MEDS ORDERED: TRANEXAMIC ACID IN NACL,ISO-OS 1,000 MG in EMPTY BAG 1 BAG IV PRN (06:09)
[2022-07-04] MEDS ORDERED: OXYTOCIN 30 UNITS/500 ML NS 30 UNIT in SALINE 1 500ML.BAG IV SCH ×2 (06:15→16:00)
[2022-07-04] MEDS: LACTATED RINGERS 1,000 ML IV SCH ×2 (06:26→19:52)
[2022-07-04 07:05] LABS: Basophils % (A) 0 %; Eosinophils % (A) 0 %; HCT 33.7 % (34.0-46.0); HGB 11.2 gm/dL (11.4-16.0); Lymphocytes # (A) 2.1 k/uL (1.0-4.8); Lymphocytes % (A) 37 %; MCH 29.7 pg (25.0-35.0); MCHC 33.4 g/dL (31.0-37.0); MCV 88.7 fL (80.0-100.0); Mean Platelet Volume 9.2; Monocytes # (A) 0.3 k/uL (0-1.0); Monocytes % (A) 6 %; Neutrophils # (A) 3.2 k/uL (1.3-7.7); Neutrophils % (A) 56 %; Platelet Count 192 k/uL (150-450); RBC 3.79 m/uL (3.80-5.40); RDW 15.5 % (11.5-15.5); WBC 5.8 k/uL (3.8-10.6)
--- NOTE | 2022-07-04 09:33 | P.HPOB ---
History of Present Illness H&P Date: 07/04/22 Chief Complaint: elective induction of labor This is a 26 year old at 39 weeks and 0 days gestation (by LMP c/w 16 week US) who presents to labor and delivery for elective induction of labor. Her has been uncomplicated. Obstetric history: 2 deliveries. The first she was induced at 36 weeks for pre-eclampsia. Her second she had PPROM at 36 weeks and went into labor. Maternal serologies: blood type O positive, antibody negative, HIV negative, VDRL non-reactive, HBsAg negative, 1 hour GTT 83, Rubella immune, GBS negative. Past Medical History Past Medical History: No Reported History History of Any Multi-Drug Resistant Organisms: None Reported Past Surgical History: No Surgical Hx Reported Additional Past Surgical History / Comment(s): "lazy" eye surgery Past Anesthesia/Blood Transfusion Reactions: No Reported Reaction Past Psychological History: No Psychological Hx Reported Smoking Status: Former smoker, Vaper Past Alcohol Use History: None Reported Past Drug Use History: None Reported - Past Family History Mother Family Medical History: No Reported History Father Family Medical History: No Reported History Medications and Allergies Home Medications Medication Instructions Recorded Confirmed Type Iron 18 mg PO DAILY 07/04/22 07/04/22 History Allergies Allergy/AdvReac Type Severity Reaction Status Date / Time sertraline [From Zoloft] Allergy Severe Rash/Hives Verified 07/04/22 06:09 cephalexin [From Keflex] Allergy Rash/Hives Verified 07/04/22 06:09 Exam Vital Signs Temp Pulse Resp BP Pulse Ox 07/04/22 06:14 97.4 F L 100 18 139/79 97 Intake and Output 07/03/22 07/04/22 07/04/22 22:59 06:59 14:59 Other: Weight 83.007 kg Focused physical exam is performed. This is a healthy-appearing in no apparent distress. Cervical exam is 1.5/80/-2/posterior. Fetus with category I FHTs. Results Result Diagrams: 07/04/22 06:22 Abnormal Lab Results - Last 24 Hours (Table) 07/04/22 Range/Units 06:22 RBC 3.79 L (3.80-5.40) m/uL Hgb 11.2 L (11.4-16.0) gm/dL Hct 33.7 L (34.0-46.0) % Assessment and Plan Assessment: 26 year old at 39 weeks and 0 days presenting for elective induction of labor Plan: Admit. NPO. mIVF. Oxytocin per protocol. Continuous electronic monitoring. Close surveillance of fetus and mother. Epidural prn. Time with Patient: Less than 30 (10 minutes)
--- NOTE | 2022-07-04 15:58 | P.PROBDLV ---
Vaginal Delivery Note - . Vaginal Delivery Note: DATE OF SERVICE: 07/04/2022 PROCEDURE: Normal Vaginal Delivery ATTENDING: Dr. Charlotte Medina MD ESTIMATED BLOOD LOSS: 100 mL FINDINGS: VFI, Apgars 11/16 PROCEDURE: Patient was a 26 y/o at 39 weeks and 0 days who presented to labor and delivery for elective induction of labor. Pitocin was started and she progressed quickly to complete dilation. She pushed the head very effectively. Head delivered without difficulty followed by shoulders and body over intact perineum. placed on maternal abdomen and bulb suctioned. Cord was clamped and cut after a 60 second delay. Placenta delivered whole with gentle cord traction. Oxytocin was started to facilitate uterine tone. Uterine fundus firm and bleeding minimal upon fundal massage. Perineal inspection revealed periurethral abrasions that were hemostatic and did not require repair. Perineum was intact. Patient stable .
[2022-07-04] MEDS ORDERED: diphenhydrAMINE 50 MG/ML 1 ML VIAL IVP PRN ×2 (15:59)
[2022-07-04] MEDS ORDERED: ZOLPIDEM 5 MG TAB PO PRN (15:59)
[2022-07-04] MEDS ORDERED: LANOLIN CREAM 5 GM TUBE TOPICAL PRN (15:59)
[2022-07-04] MEDS ORDERED: HYDROCORTISONE 2.5% RECTAL CREAM 30 GM TUBE RECTAL PRN (15:59)
[2022-07-04] MEDS ORDERED: diphenhydrAMINE 50 MG CAP PO PRN (15:59)
[2022-07-04] MEDS ORDERED: BENZOCAINE/MENTHOL SPRAY 1 GM/SPRAY AEROSOL TOPICAL PRN (15:59)
[2022-07-04] MEDS ORDERED: diphenhydrAMINE 25 MG CAP PO PRN (15:59)
[2022-07-04] MEDS ORDERED: SIMETHICONE 80 MG CHEWABLE PO PRN (15:59)
[2022-07-04] MEDS: IBUPROFEN 600 MG TAB PO PRN (16:12)
[2022-07-04 16:34] VITALS: RESP 16
[2022-07-04] MEDS: SENNOSIDES-DOCUSATE SODIUM 1 EACH TAB PO SCH (20:00)
[2022-07-05] MEDS: IBUPROFEN 600 MG TAB PO PRN ×2 (01:11→07:57)
[2022-07-05] MEDS: LACTATED RINGERS 1,000 ML IV SCH ×2 (01:21→06:44)
[2022-07-05] MEDS: ACETAMINOPHEN TAB 325 MG TAB PO PRN ×2 (05:31→11:12)
[2022-07-05 05:49] LABS: Basophils % (A) 0 %; Eosinophils # (A) 0.1 k/uL (0-0.7); Eosinophils % (A) 1 %; HCT 34.2 % (34.0-46.0); HGB 11.5 gm/dL (11.4-16.0); Lymphocytes # (A) 1.7 k/uL (1.0-4.8); Lymphocytes % (A) 17 %; MCH 30.1 pg (25.0-35.0); MCHC 33.5 g/dL (31.0-37.0); Mean Platelet Volume 8.7; Monocytes # (A) 0.5 k/uL (0-1.0); Monocytes % (A) 4 %; Neutrophils % (A) 78 %; Platelet Count 198 k/uL (150-450); RDW 14.9 % (11.5-15.5); WBC 10.3 k/uL (3.8-10.6)
[2022-07-05] MEDS: SENNOSIDES-DOCUSATE SODIUM 1 EACH TAB PO SCH (07:58)
[2022-07-05 08:21] VITALS: BP 125/88; PULSE 74; TEMP 97.9
--- NOTE | 2022-07-05 08:26 | P.PNOBGVD ---
Subjective - Subjective Principal diagnosis: s/p vaginal delivery Interval history: The patient is doing well this morning and had no acute events overnight. She has no complaints this morning. She reports minimal lochia, passing flatus, voiding without difficulty, ambulating, and eating/drinking without nausea or vomiting. She is formula feeding her without difficulty. She denies chest pain, shortness of breathing, fevers, or chills overnight. She denies pain or swelling in the legs. She denies headache, visual disturbances, and RUQ pain. Patient reports: Reports appetite normal, Reports voiding normally, Reports pain well controlled, Reports ambulating normally [place]: doing well Objective - Latest Vital Signs Latest vital signs: Vital Signs Temp Pulse Resp BP Pulse Ox 07/05/22 08:00 97.9 F 74 16 125/88 07/05/22 00:00 98.1 F 66 16 130/85 97 07/04/22 20:00 97.9 F 72 16 123/75 97 07/04/22 18:16 97.2 F L 79 16 129/80 07/04/22 17:46 76 16 134/73 07/04/22 17:16 70 16 147/89 07/04/22 16:56 75 16 144/92 07/04/22 16:46 76 16 145/79 07/04/22 16:31 85 16 132/63 07/04/22 16:16 97.1 F L 86 16 142/75 Intake and Output 07/04/22 07/05/22 07/05/22 22:59 06:59 14:59 Intake Total 180.100 200 Balance 180.100 200 Intake: Intake, IV Titration 180.100 Amount Oxytocin 30 Units/500 ml 180.100 Ns 30 unit In Saline 1 500ml.bag @ Per Protocol IV .Q0M [facility] Rx#:[id number] Oral 200 Other: # Voids 1 2 - Exam Extremities: Present: normal Abdomen: Present: normal appearance, soft Uterus: Present: normal, firm - Labs Labs: Abnormal Lab Results - Last 24 Hours (Table) 07/05/22 Range/Units 05:32 Neutrophils # 8.0 H (1.3-7.7) k/uL Assessment and Plan Assessment: 26 year old now PPD#1 s/p normal vaginal delivery Plan: 1. . Patient meeting milestones appropriately. 2. Elevated BPs . Majority are normotensive with a few intermittent mild-range BPs, all <150/90. No s/s preE. Will bring back to the office in 1 week for BP check. 3. Viable female . Doing well at bedside. Dispo: Will discharge home this afternoon after 24 hours .
--- NOTE | 2022-07-05 08:30 | P.DS ---
Providers Date of admission: 07/04/22 05:57 Expected date of discharge: 07/05/22 Attending physician: Charlotte Medina MD Primary care physician: Stated None Hospital Course: 26 year old now day #1 who desires discharge home today. She presented to L&D on 07/04 for elective induction of labor at 39 weeks. She responded quickly to the pitocin per protocol and quickly progressed to complete. She pushed effectively and had a normal vaginal delivery. Since delivery she has met all milestones appropriately and desires discharge home. Of note, she has had a few intermittent mild range blood pressures that we will watch outpatient. She denies any signs or symptoms of pre-eclampsia. I recommended pelvic rest for 6 weeks including no tampons or sexual intercourse. The patient is encouraged to call the office for any heavy bleeding, foul-smelling discharge, breast complaints, fevers/chills, severe pain, or other concerns. All questions answered. Return to clinic in 1 week for blood pressure check. Assessment: 26 year old now ppd#1 s/p normal vaginal delivery Patient Condition at Discharge: Good Plan - Discharge Summary New Discharge Prescriptions: No Action Iron 18 mg PO DAILY Discharge Medication List Iron 18 mg PO DAILY 07/04/22 [History] Follow up Appointment(s)/Referral(s): Charlotte Medina MD [STAFF PHYSICIAN] - 1 Week Patient Instructions/Handouts: Depression (DC), Perineal Care (DC), Bleeding (DC), Vaginal Delivery (DC), Your [place]'s Appearance (DC), Caring for Your Baby (ED), Breast Care for the Non- Mother (DC) Activity/Diet/Wound Care/Special Instructions: Pelvic rest for 6 weeks Discharge Disposition: HOME SELF-CARE
== END 2022-07-05 17:45 | disposition home or self-care (01) | DRG 560 ==
LOC: 4FBP 05:57
PROVIDERS: ADMIT Obstetrics & Gynecology; ATTEND Obstetrics & Gynecology
PROC: 10E0XZZ Delivery of Products of Conception, External Approach (ICD-10-PCS; principal; 2022-07-04)
PROC: 3E033VJ Introduction of Other Hormone into Peripheral Vein, Percutaneous Approach (ICD-10-PCS; 2022-07-04)
DX: O60.14X0 Preterm labor third trimester with preterm delivery third trimester, not applicable or unspecified (principal); O71.82 Other specified trauma to perineum and vulva; O99.334 Smoking (tobacco) complicating childbirth; Z3A.36 36 weeks gestation of pregnancy; F17.290 Nicotine dependence, other tobacco product, uncomplicated; O90.89 Other complications of the puerperium, not elsewhere classified; R03.0 Elevated blood-pressure reading, without diagnosis of hypertension; Z37.0 Single live birth; Z88.8 Allergy status to other drugs, medicaments and biological substances; Z88.1 Allergy status to other antibiotic agents
CPT/HCPCS: 85025; 86850; 86900; 86901

== ENCOUNTER 2023-01-14 16:07 | Emergency (ER) | payer OTHER ==
--- NOTE | 2023-01-14 17:46 | ED ---
ENT HPI - General Chief complaint: Dental/Oral Stated complaint: Dental Pain Time Seen by Provider: 01/14/23 17:36 Source: patient, RN notes reviewed Mode of arrival: ambulatory Limitations: no limitations - History of Present Illness Initial comments: Patient is a 27-year-old female presented ER with chief complaint of a tooth pain. Patient states she does not see a dentist regularly. She states that the pain has been going on for a couple of days denies any periorbital tenderness or sinus pain. Patient denies any fevers, chills, night sweats. - Related Data Home Medications Medication Instructions Recorded Confirmed Iron 18 mg PO DAILY 07/04/22 07/04/22 Previous Rx's Medication Instructions Recorded Clindamycin [Cleocin] 150 mg PO Q6H #40 capsule 01/14/23 Allergies Allergy/AdvReac Type Severity Reaction Status Date / Time sertraline [From Zoloft] Allergy Severe Rash/Hives Verified 07/04/22 06:09 cephalexin [From Keflex] Allergy Rash/Hives Verified 07/04/22 06:09 Review of Systems ROS Statement: Those systems with pertinent positive or pertinent negative responses have been documented in the HPI. ROS Other: All systems not noted in ROS Statement are negative. Past Medical History Past Medical History: No Reported History History of Any Multi-Drug Resistant Organisms: None Reported Past Surgical History: No Surgical Hx Reported Additional Past Surgical History / Comment(s): "lazy" eye surgery Past Anesthesia/Blood Transfusion Reactions: No Reported Reaction Past Psychological History: No Psychological Hx Reported Smoking Status: Former smoker, Vaper Past Alcohol Use History: None Reported Past Drug Use History: None Reported - Past Family History Mother Family Medical History: No Reported History Father Family Medical History: No Reported History General Exam Limitations: no limitations ENT exam: Present: other (Multiple dental caries noted. Black plaque on left incisors and canine teeth.) Course Vital Signs 01/14/23 16:34 Temperature 97.8 F Pulse Rate 95 Respiratory 16 Rate Blood Pressure 135/71 O2 Sat by Pulse 99 Oximetry Medical Decision Making - Medical Decision Making Was pt. sent in by a medical professional or institution (, PA, HYDROGRAPHIC SURVEYOR, urgent care, hospital, or detention...) When possible be specific @ -No Did you speak to anyone other than the patient for history (EMS, parent, family, police, friend...)? What history was obtained from this source @ -No Did you review nursing and triage notes (agree or disagree)? Why? @ -I reviewed and agree with nursing and triage notes Were old charts reviewed (outside hosp., previous admission, EMS record, old EKG, old radiological studies, urgent care reports/EKG's, detention records)? Report findings @ -No old charts were reviewed Differential Diagnosis (chest pain, altered mental status, abdominal pain women, abdominal pain men, vaginal bleeding, weakness, fever, dyspnea, syncope, h eadache, dizziness, GI bleed, back pain, seizure, CVA, palpatations, mental health, musculoskeletal)? @ -Dental Cavity, mouth abscess, tooth fracture, tooth avulsion. EKG interpreted by me (3pts min.). @ -None X-rays interpreted by me (1pt min.). @ -None done CT interpreted by me (1pt min.). @ -None done U/S interpreted by me (1pt. min.). @ -None done What testing was considered but not performed or refused? (CT, X-rays, U/S, labs)? Why? @ -None What meds were considered but not given or refused? Why? @ -None Did you discuss the management of the patient with other professionals (professionals i.e. , PA, HYDROGRAPHIC SURVEYOR, lab, RT, psych nurse, social sciences professor, brush maker, teacher, transport corps officer, heel caser)? Give summary @ -No Was smoking cessation discussed for >3mins.? @ -No Was critical care preformed (if so, how long)? @ -No Were there social determinants of health that impacted care today? How? (Homelessness, low income, unemployed, alcoholism, drug addiction, transportation, low edu. Level, literacy, decrease access to med. care, care home, rehab)? @ -No Was there de-escalation of care discussed even if they declined (Discuss DNR or withdrawal of care, Hospice)? DNR status @ -No What co-morbidities impacted this encounter? (DM, HTN, Smoking, COPD, CAD, Cancer, CVA, ARF, Chemo, Hep., AIDS, mental health diagnosis, sleep apnea, morbid obesity)? @ -None Was patient admitted / discharged? Hospital course, mention meds given and route, prescriptions, significant lab abnormalities, going to OR and other pertinent info. @ -Discharge. Upon examination there was black plaque noted along the central and lateral incisors and canine teeth. There is erythema noted along gumline. Patient received by mouth Tylenol for pain in the ER. Patient will be discharged home with by mouth clindamycin. Return parameters were sent. Patient advised follow-up with dentist as soon as possible. Patient expressed understanding and agreement with the care plan. Undiagnosed new problem with uncertain prognosis? @ -No Drug Therapy requiring intensive monitoring for toxicity (Heparin, Nitro, Insulin, Cardizem)? @ -No Were any procedures done? @ -No Diagnosis/symptom? @ -Dental infection Acute, or Chronic, or Acute on Chronic? @ -Acute Uncomplicated (without systemic symptoms) or Complicated (systemic symptoms)? @ -[Uncomplicated Side effects of treatment? @ -No Exacerbation, Progression, or Severe Exacerbation? @ -No Poses a threat to life or bodily function? How? (Chest pain, [place], [place], pneumonia, PE, COPD, DKA, ARF, appy, cholecystitis, CVA, Diverticulitis, Homicidal, Suicidal, threat to staff... and all critical care pts) @ -No Disposition Clinical Impression: Dental caries Disposition: HOME SELF-CARE Condition: Stable Additional Instructions: Please return to the Emergency Department if symptoms worsen or any other concerns. Prescriptions: Clindamycin [Cleocin] 150 mg PO Q6H #40 capsule Is patient prescribed a controlled substance at d/c from ED?: No Referrals: Justin Fields MD [Primary Care Provider] - 1-2 days Pierre Adames DDS [STAFF PHYSICIAN] - 1-2 days Time of Disposition: 17:46
[2023-01-14] MEDS ORDERED: ACETAMINOPHEN TAB 325 MG TAB PO STA (17:47)
[2023-01-14 18:12] VITALS: BP 130/68; PULSE 90; RESP 18; TEMP 98.1
== END 2023-01-14 18:54 | disposition home or self-care (01) ==
LOC: EC 16:07
DX: K02.9 Dental caries, unspecified (principal); F17.290 Nicotine dependence, other tobacco product, uncomplicated; Z88.1 Allergy status to other antibiotic agents; Z88.8 Allergy status to other drugs, medicaments and biological substances
CPT/HCPCS: 99282

== ENCOUNTER 2023-03-04 14:51 | Emergency (ER) | payer OTHER ==
[2023-03-04 15:48] VITALS: BP 131/90; PULSE 88; RESP 16; TEMP 98.6
--- NOTE | 2023-03-04 15:52 | ED ---
ENT HPI - General Source: patient, RN notes reviewed Mode of arrival: ambulatory Limitations: no limitations <Nikki Palmer - Last Filed: 03/04/23 15:56> <Milagro Muniz - Last Filed: 03/04/23 19:30> - General Chief complaint: Dental/Oral Stated complaint: right side facial swelling Time Seen by Provider: 03/04/23 15:52 - History of Present Illness Initial comments: Patient is a 27-year-old female presenting to the ER with chief complaint of right-sided facial swelling. Patient states she has a dental cavity/broken tooth on that side. Patient states she is unable to eat due to the pain. Patient denies any fevers, chills, night sweats. Patient does follow-up with dentist. (Nikki Palmer) 27-year-old female presenting with chief complaint of right-sided facial pain and swelling. Patient has a known cavity and broken tooth to the right lower jaw. She is having no difficulty breathing or swallowing. No fever, chills, trismus, drooling, muffled voice. She is having difficulty eating secondary to the pain. No neck pain. (Milagro Muniz) - Related Data Home Medications Medication Instructions Recorded Confirmed Iron 18 mg PO DAILY 07/04/22 07/04/22 Previous Rx's Medication Instructions Recorded Clindamycin [Cleocin] 150 mg PO Q6H #40 capsule 01/14/23 Amoxic-Pot Clav 875-125Mg 1 tab PO Q12HR 10 Days #20 tab 03/04/23 [Augmentin 875-125] Ibuprofen 800 mg PO Q8H PRN #30 tab 03/04/23 Allergies Allergy/AdvReac Type Severity Reaction Status Date / Time sertraline [From Zoloft] Allergy Severe Rash/Hives Verified 03/04/23 15:35 cephalexin [From Keflex] Allergy Rash/Hives Verified 03/04/23 15:35 Review of Systems ROS Other: All systems not noted in ROS Statement are negative. <Nikki Palmer - Last Filed: 03/04/23 15:56> ROS Other: All systems not noted in ROS Statement are negative. <Milagro Muniz - Last Filed: 03/04/23 19:30> ROS Statement: Those systems with pertinent positive or pertinent negative responses have been documented in the HPI. Past Medical History Past Medical History: No Reported History History of Any Multi-Drug Resistant Organisms: None Reported Past Surgical History: No Surgical Hx Reported Additional Past Surgical History / Comment(s): "lazy" eye surgery Past Anesthesia/Blood Transfusion Reactions: No Reported Reaction Past Psychological History: No Psychological Hx Reported Smoking Status: Former smoker, Vaper Past Alcohol Use History: None Reported Past Drug Use History: None Reported - Past Family History Mother Family Medical History: No Reported History Father Family Medical History: No Reported History <Nikki Palmer - Last Filed: 03/04/23 15:56> General Exam Limitations: no limitations <Nikki Palmer - Last Filed: 03/04/23 15:56> Limitations: no limitations General appearance: alert, in no apparent distress Head exam: Present: atraumatic, normocephalic Eye exam: Present: normal appearance Expanded Mouth exam: Present: tongue normal. Absent: drooling, trismus, muffled voice Teeth exam: Present: dental caries, fractured tooth # Throat exam: normal inspection Neck exam: Present: normal inspection Respiratory exam: Absent: respiratory distress Cardiovascular Exam: Present: regular rate Neurological exam: Present: alert, oriented X3 Psychiatric exam: Present: normal affect, normal mood Skin exam: Present: warm, dry <Milagro Muniz - Last Filed: 03/04/23 19:30> - General Exam Comments Initial Comments: Visual Physical Exam Vital signs reviewed General: Well-appearing, nontoxic, no acute distress. Head: Normocephalic, atraumatic, mild right cheek edema Eyes: PERRLA, EOMI ENT: Airway patent Chest: Nonlabored breathing Skin: No visual rash, normal skin tone Neuro: Alert and oriented 3 Musculoskeletal: No gross abnormalities (Nikki Palmer) Course Vital Signs 03/04/23 15:34 Temperature 98.6 F Pulse Rate 88 Respiratory 16 Rate Blood Pressure 131/90 O2 Sat by Pulse 99 Oximetry Medical Decision Making <Nikki Palmer - Last Filed: 03/04/23 15:56> <Milagro Muniz - Last Filed: 03/04/23 19:30> - Medical Decision Making I performed the quick note portion of the exam. Electronically signed by Nikki Palmer PA-C (Nikki Palmer) Was pt. sent in by a medical professional or institution (BRODY Nunez, AUTOMATIC VULCANIZING OPERATOR, urgent ca re, hospital, or custodial...) When possible be specific @ -[No] Did you speak to anyone other than the patient for history (EMS, parent, family, police, friend...)? What history was obtained from this source @ -[No] Did you review nursing and triage notes (agree or disagree)? Why? @ -[I reviewed and agree with nursing and triage notes] Were old charts reviewed (outside hosp., previous admission, EMS record, old EKG, old radiological studies, urgent care reports/EKG's, custodial records)? Report findings @ -[No old charts were reviewed] Differential Diagnosis (chest pain, altered mental status, abdominal pain women, abdominal pain men, vaginal bleeding, weakness, fever, dyspnea, syncope, headache, dizziness, GI bleed, back pain, seizure, CVA, palpatations, mental health, musculoskeletal)? @ -Differential includes dental pain, dental abscess, Louis angina, this is not an all inclusive list EKG interpreted by me (3pts min.). @ -[As above] X-rays interpreted by me (1pt min.). @ -[None done] CT interpreted by me (1pt min.). @ -[None done] U/S interpreted by me (1pt. min.). @ -[None done] What testing was considered but not performed or refused? (CT, X-rays, U/S, labs)? Why? @ -[None] What meds were considered but not given or refused? Why? @ -[None] Did you discuss the management of the patient with other professionals (professionals i.e. BRODY Nunez, AUTOMATIC VULCANIZING OPERATOR, lab, RT, psych nurse, healthcare social worker, stock preparation supervisor, teacher, maritime officer, onsite case manager)? Give summary @ -[No] Was smoking cessation discussed for >3mins.? @ -[No] Was critical care preformed (if so, how long)? @ -[No] Were there social determinants of health that impacted care today? How? (Homelessness, low income, unemployed, alcoholism, drug addiction, transportation, low edu. Level, literacy, decrease access to med. care, intermediate, rehab)? @ -[No] Was there de-escalation of care discussed even if they declined (Discuss DNR or withdrawal of care, Hospice)? DNR status @ -[No] What co-morbidities impacted this encounter? (DM, HTN, Smoking, COPD, CAD, Cancer, CVA, ARF, Chemo, Hep., AIDS, mental health diagnosis, sleep apnea, morbid obesity)? @ -[None] Was patient admitted / discharged? Hospital course, mention meds given and route, prescriptions, significant lab abnormalities, going to OR and other pertinent info. @ -27-year-old female presenting with chief complaint of dental pain as well as swelling to the right lower jaw. History of physical exam were conducted. No brawny induration, normal posterior pharynx, no trismus or drooling. No di fficulty breathing. Patient will be treated with Augmentin for dental abscess. Instructed to follow-up with her dentist. Follow-up with PCP. Report back to ER with any new or worsening symptoms. Discussed return parameters and answered all questions. Patient conveyed verbal understanding and agreed to the plan. I discussed this case in detail with my attending Dr. Lazcano Undiagnosed new problem with uncertain prognosis? @ -[No] Drug Therapy requiring intensive monitoring for toxicity (Heparin, Nitro, Insulin, Cardizem)? @ -[No] Were any procedures done? @ -[No] Diagnosis/symptom? @ -dental Abscess Acute, or Chronic, or Acute on Chronic? @ -acute Uncomplicated (without systemic symptoms) or Complicated (systemic symptoms)? @ -uncomplicated Side effects of treatment? @ -[No] Exacerbation, Progression, or Severe Exacerbation? @ -[No] Poses a threat to life or bodily function? How? (Chest pain, [place], [place], pneumonia, PE, COPD, DKA, ARF, appy, cholecystitis, CVA, Diverticulitis, Homicidal, Suicidal, threat to staff... and all critical care pts) @ -[No] (Milagro Muniz) Disposition <Nikki Palmer - Last Filed: 03/04/23 15:56> Is patient prescribed a controlled substance at d/c from ED?: No Time of Disposition: 17:26 <Milagro Muniz - Last Filed: 03/04/23 19:30> Clinical Impression: Dental abscess Disposition: HOME SELF-CARE Condition: Good Instructions (If sedation given, give patient instructions): Dental Abscess (ED) Additional Instructions: Follow-up with your dentist. Report back to ER with any new or worsening symptoms. Prescriptions: Amoxic-Pot Clav 875-125Mg [Augmentin 875-125] 1 tab PO Q12HR 10 Days #20 tab Ibuprofen 800 mg PO Q8H PRN #30 tab PRN Reason: Pain Referrals: Justin Fields MD [Primary Care Provider] - 1-2 days
== END 2023-03-04 17:47 | disposition home or self-care (01) ==
LOC: EC 14:51
DX: K04.7 Periapical abscess without sinus (principal); F17.290 Nicotine dependence, other tobacco product, uncomplicated; Z88.1 Allergy status to other antibiotic agents; Z88.8 Allergy status to other drugs, medicaments and biological substances
CPT/HCPCS: 99282

== ENCOUNTER 2023-06-16 13:27 | Emergency (ER) | payer OTHER ==
--- NOTE | 2023-06-16 14:25 | XR ---
EXAMINATION TYPE: XR chest 2V DATE OF EXAM: 06/16/2023 COMPARISON: 11/02/2021 TECHNIQUE: PA and lateral views submitted. HISTORY: Cough FINDINGS: The lungs are clear and there is no pneumothorax, pleural effusion, or focal pneumonia. Heart size normal and no overt failure. Osseous structures demonstrate hypertrophic and degenerative changes of the spine. IMPRESSION: 1. No acute process.
[2023-06-16 14:26] VITALS: TEMP 97.9
--- NOTE | 2023-06-16 15:09 | ED ---
URI HPI - General Chief Complaint: Upper Respiratory Infection Stated Complaint: Dizziness/Weakness Time Seen by Provider: 06/16/23 13:35 Source: patient, RN notes reviewed Mode of arrival: ambulatory Limitations: no limitations - History of Present Illness Initial Comments: 27-year-old female presents emergency department with chief complaint of cough a nd congestion. She states she has been sick for several days almost a week. Patient states she seen urgent care so that she just had some mucus. Patient states she had fever chills and bodyaches and a mildly productive cough. No GI symptoms. - Related Data Home Medications Medication Instructions Recorded Confirmed Iron 18 mg PO DAILY 07/04/22 07/04/22 Previous Rx's Medication Instructions Recorded Clindamycin [Cleocin] 150 mg PO Q6H #40 capsule 01/14/23 Amoxic-Pot Clav 875-125Mg 1 tab PO Q12HR 10 Days #20 tab 03/04/23 [Augmentin 875-125] Ibuprofen 800 mg PO Q8H PRN #30 tab 03/04/23 Allergies Allergy/AdvReac Type Severity Reaction Status Date / Time sertraline [From Zoloft] Allergy Severe Rash/Hives Verified 06/16/23 13:55 cephalexin [From Keflex] Allergy Rash/Hives Verified 06/16/23 13:55 Review of Systems ROS Statement: Those systems with pertinent positive or pertinent negative responses have been documented in the HPI. ROS Other: All systems not noted in ROS Statement are negative. Past Medical History Past Medical History: No Reported History History of Any Multi-Drug Resistant Organisms: None Reported Past Surgical History: No Surgical Hx Reported Additional Past Surgical History / Comment(s): "lazy" eye surgery Past Anesthesia/Blood Transfusion Reactions: No Reported Reaction Past Psychological History: No Psychological Hx Reported Smoking Status: Former smoker, Vaper Past Alcohol Use History: None Reported Past Drug Use History: None Reported - Past Family History Mother Family Medical History: No Reported History Father Family Medical History: No Reported History General Exam Limitations: no limitations General appearance: alert, in no apparent distress Head exam: Present: atraumatic, normocephalic, normal inspection Eye exam: Present: normal appearance, PERRL, EOMI. Absent: scleral icterus, conjunctival injection, periorbital swelling ENT exam: Present: normal exam, mucous membranes moist Neck exam: Present: normal inspection. Absent: tenderness, meningismus, lymphadenopathy Respiratory exam: Present: normal lung sounds bilaterally. Absent: respiratory distress, wheezes, rales, rhonchi, stridor Cardiovascular Exam: Present: regular rate, normal rhythm, normal heart sounds. Absent: systolic murmur, diastolic murmur, rubs, gallop, clicks Course Vital Signs 06/16/23 13:51 Temperature 97.9 F Pulse Rate 103 H Respiratory 18 Rate Blood Pressure 115/89 O2 Sat by Pulse 97 Oximetry Medical Decision Making - Medical Decision Making Was pt. sent in by a medical professional or institution (, BRODY, CERTIFIED COURT/MEDICAL INTERPRETER, urgent care, hospital, or snf...) When possible be specific @ -No Did you speak to anyone other than the patient for history (EMS, parent, family, police, friend...)? What history was obtained from this source @ -No Did you review nursing and triage notes (agree or disagree)? Why? @ -I reviewed and agree with nursing and triage notes Were old charts reviewed (outside hosp., previous admission, EMS record, old EKG, old radiological studies, urgent care reports/EKG's, snf records)? Report findings @ -No old charts were reviewed Differential Diagnosis (chest pain, altered mental status, abdominal pain women, abdominal pain men, vaginal bleeding, weakness, fever, dyspnea, syncope, headache, dizziness, GI bleed, back pain, seizure, CVA, palpatations, mental health, musculoskeletal)? @ -Differential URI EKG interpreted by me (3pts min.). @ -None X-rays interpreted by me (1pt min.). @ -Chest x-ray shows no acute cardiopulmonary process. CT interpreted by me (1pt min.). @ -None done U/S interpreted by me (1pt. min.). @ -None done What testing was considered but not performed or refused? (CT, X-rays, U/S, labs)? Why? @ -None What meds were considered but not given or refused? Why? @ -None Did you discuss the management of the patient with other professionals (professionals i.e. BRODY Nunez, CERTIFIED COURT/MEDICAL INTERPRETER, lab, RT, psych nurse, psychosocial rehabilitation counselor, blending machine operator, teacher, collections officer, case managers)? Give summary @ -No Was smoking cessation discussed for >3mins.? @ -No Was critical care preformed (if so, how long)? @ -No Were there social determinants of health that impacted care today? How? (Homelessness, low income, unemployed, alcoholism, drug addiction, transportation, low edu. Level, literacy, decrease access to med. care, long term, rehab)? @ -No Was there de-escalation of care discussed even if they declined (Discuss DNR or withdrawal of care, Hospice)? DNR status @ -No What co-morbidities impacted this encounter? (DM, HTN, Smoking, COPD, CAD, Cancer, CVA, ARF, Chemo, Hep., AIDS, mental health diagnosis, sleep apnea, morbid obesity)? @ -None Was patient admitted / discharged? Hospital course, mention meds given and route, prescriptions, significant lab abnormalities, going to OR and other pertinent info. @ -Patient is influenza positive. Symptoms have been present for several days is not a candidate for Tamiflu. Patient discharged with supportive treatment return plans discussed. Undiagnosed new problem with uncertain prognosis? @ -No Drug Therapy requiring intensive monitoring for toxicity (Heparin, Nitro, Insulin, Cardizem)? @ -No Were any procedures done? @ -No Diagnosis/symptom? @ -Influenza B Acute, or Chronic, or Acute on Chronic? @ -Acute Uncomplicated (without systemic symptoms) or Complicated (systemic symptoms)? @ -Uncomplicated Side effects of treatment? @ -No Exacerbation, Progression, or Severe Exacerbation? @ -No Poses a threat to life or bodily function? How? (Chest pain, [place], [place], pneumonia, PE, COPD, DKA, ARF, appy, cholecystitis, CVA, Diverticulitis, Homicidal, Suicidal, threat to staff... and all critical care pts) @ -No - Lab Data Lab Results 06/16/23 Range/Units 14:02 Influenza Type A (PCR) Not Detected (Not Detectd) Influenza Type B (PCR) Detected A (Not Detectd) RSV (PCR) Not Detected (Not Detectd) SARS-CoV-2 (PCR) Not Detected (Not Detectd) Disposition Clinical Impression: Influenza B Disposition: HOME SELF-CARE Condition: Stable Instructions (If sedation given, give patient instructions): Influenza (ED) Additional Instructions: Please return to the Emergency Department if symptoms worsen or any other concerns. Is patient prescribed a controlled substance at d/c from ED?: No Referrals: Justin Fields MD [Primary Care Provider] - 1-2 days Time of Disposition: 15:09
[2023-06-16 15:47] VITALS: BP 120/82; PULSE 71; RESP 12
== END 2023-06-16 15:21 | disposition home or self-care (01) ==
LOC: EC 13:27
DX: J10.1 Influenza due to other identified influenza virus with other respiratory manifestations (principal); F17.290 Nicotine dependence, other tobacco product, uncomplicated; Z88.8 Allergy status to other drugs, medicaments and biological substances
CPT/HCPCS: 71046; 87636; 99285

== ENCOUNTER 2023-10-24 13:39 | Emergency (ER) | payer OTHER ==
[2023-10-24] MEDS ORDERED: KETOROLAC 15 MG/ML 1 ML VIAL ONE (17:03)
== END 2023-10-24 17:15 | disposition home or self-care (01) ==
LOC: EC 13:39
CPT/HCPCS: 96372; 99283

== ENCOUNTER 2023-11-29 09:17 | Emergency (ER) | payer OTHER ==
--- NOTE | 2023-11-29 09:49 | ED ---
General Adult HPI - General Stated complaint: Throat Pain Time Seen by Provider: 11/29/23 09:36 Source: patient, RN notes reviewed Mode of arrival: ambulatory Limitations: no limitations - History of Present Illness Initial comments: Patient is a 28-year-old female presenting to the emergency department with concerns with throat pain. Onset of symptoms was just a couple days ago. Patient also has occasional cough and some rhinorrhea. No fever. No throat swelling. - Related Data Home Medications Medication Instructions Recorded Confirmed Iron 18 mg PO DAILY 07/04/22 07/04/22 Previous Rx's Medication Instructions Recorded Clindamycin [Cleocin] 150 mg PO Q6H #40 capsule 01/14/23 Amoxic-Pot Clav 875-125Mg 1 tab PO Q12HR 10 Days #20 tab 03/04/23 [Augmentin 875-125] Ibuprofen 800 mg PO Q8H PRN #30 tab 03/04/23 Allergies Allergy/AdvReac Type Severity Reaction Status Date / Time sertraline [From Zoloft] Allergy Severe Rash/Hives Verified 06/16/23 13:55 cephalexin [From Keflex] Allergy Rash/Hives Verified 06/16/23 13:55 Review of Systems ROS Statement: Those systems with pertinent positive or pertinent negative responses have been documented in the HPI. ROS Other: All systems not noted in ROS Statement are negative. Constitutional: Denies: fever Eyes: Denies: eye pain ENT: Reports: throat pain Respiratory: Reports: cough. Denies: dyspnea Cardiovascular: Denies: chest pain Gastrointestinal: Denies: abdominal pain Genitourinary: Denies: dysuria Musculoskeletal: Denies: back pain Skin: Denies: rash Neurological: Denies: weakness Past Medical History Past Medical History: No Reported History History of Any Multi-Drug Resistant Organisms: None Reported Past Surgical History: No Surgical Hx Reported Additional Past Surgical History / Comment(s): "lazy" eye surgery Past Anesthesia/Blood Transfusion Reactions: No Reported Reaction Past Psychological History: No Psychological Hx Reported Smoking Status: Former smoker, Vaper Past Alcohol Use History: None Reported Past Drug Use History: None Reported - Past Family History Mother Family Medical History: No Reported History Father Family Medical History: No Reported History General Exam Limitations: no limitations General appearance: alert, in no apparent distress Head exam: Present: normocephalic Eye exam: Present: normal appearance ENT exam: Present: other (Pharyngeal erythema without tonsillar swelling or exudate) Neck exam: Present: normal inspection. Absent: tenderness, meningismus, lymphadenopathy Respiratory exam: Present: normal lung sounds bilaterally Cardiovascular Exam: Present: regular rate, normal rhythm GI/Abdominal exam: Present: soft. Absent: tenderness Extremities exam: Present: normal inspection Neurological exam: Present: alert Psychiatric exam: Present: normal affect, normal mood Skin exam: Present: normal color Course Vital Signs 11/29/23 09:44 Temperature 97.5 F L Pulse Rate 69 Respiratory 18 Rate Blood Pressure 118/80 O2 Sat by Pulse 97 Oximetry Medical Decision Making - Medical Decision Making Was pt. sent in by a medical professional or institution (, PA, PICK UP, urgent care, hospital, or senior care...) When possible be specific @ -No Did you speak to anyone other than the patient for history (EMS, parent, family, police, friend...)? What history was obtained from this source @ -No Did you review nursing and triage notes (agree or disagree)? Why? @ -I reviewed and agree with nursing and triage notes Were old charts reviewed (outside hosp., previous admission, EMS record, old EKG, old radiological studies, urgent care reports/EKG's, senior care records)? Report findings @ -Previous visit not available and unable to view any results or documentation patient does not have pelvic discomfort or bleeding at this time Differential Diagnosis (chest pain, altered mental status, abdominal pain women, abdominal pain men, vaginal bleeding, weakness, fever, dyspnea, syncope, headache, dizziness, GI bleed, back pain, seizure, CVA, palpatations, mental health, musculoskeletal)? @ -Differential Fever: Pneumonia, viral URI, endocarditis, myocarditis, pericarditis, otitis, sinusitis, peritonsillar Abscess, retropharyngeal Abscess, epiglottitis, peritonitis, appendicitis, Nathalia cystitis, diverticulitis, hepatitis, colitis, UTI, PID, TOA, pyelonephritis, prostatitis, epididymitis, meningitis, encephalitis, pulmonary embolism, CVA, thyroid storm, pancreatitis, adrenal crisis, cavernous sinus thrombosis, this is not meant to be an all-inclusive list. EKG interpreted by me (3pts min.). @ -As above X-rays interpreted by me (1pt min.). @ -None done CT interpreted by me (1pt min.). @ -None done U/S interpreted by me (1pt. min.). @ -None done What testing was considered but not performed or refused? (CT, X-rays, U/S, labs)? Why? @ -None What meds were considered but not given or refused? Why? @ -Considered antibiotics however strep is negative Did you discuss the management of the patient with other professionals (professionals i.e. , PA, PICK UP, lab, RT, psych nurse, renal social worker, senior net programmer, teacher, donor relations officer, case mgr)? Give summary @ -No Was smoking cessation discussed for >3mins.? @ -No Was critical care preformed (if so, how long)? @ -No Were there social determinants of health that impacted care today? How? (Homelessness, low income, unemployed, alcoholism, drug addiction, transportation, low edu. Level, literacy, decrease access to med. care, skilled nursing, rehab)? @ -No Was there de-escalation of care discussed even if they declined (Discuss DNR or withdrawal of care, Hospice)? DNR status @ -No What co-morbidities impacted this encounter? (DM, HTN, Smoking, COPD, CAD, Cancer, CVA, ARF, Chemo, Hep., AIDS, mental health diagnosis, sleep apnea, morbid obesity)? @ -None Was patient admitted / discharged? Hospital course, mention meds given and route, prescriptions, significant lab abnormalities, going to OR and other pertinent info. @ -Patient presents with sore throat and upper respiratory symptoms. Testing unremarkable. Patient will be discharged with symptomatic care Undiagnosed new problem with uncertain prognosis? @ -No Drug Therapy requiring intensive monitoring for toxicity (Heparin, Nitro, Insulin, Cardizem)? @ -No Were any procedures done? @ -No Diagnosis/symptom? @ -Upper respiratory infection Acute, or Chronic, or Acute on Chronic? @ -Acute Uncomplicated (without systemic symptoms) or Complicated (systemic symptoms)? @ -Default Side effects of treatment? @ -No Exacerbation, Progression, or Severe Exacerbation? @ -No Poses a threat to life or bodily function? How? (Chest pain, [place], [place], pneumonia, PE, COPD, DKA, ARF, appy, cholecystitis, CVA, Diverticulitis, Homicidal, Suicidal, threat to staff... and all critical care pts) @ -No - Lab Data Lab Results 11/29/23 11/29/23 11/29/23 Range/Units 10:09 10:09 10:09 Urine HCG, Qual Detected (Not Detectd) Influenza Type A (PCR) Not Detected (Not Detectd) Influenza Type B (PCR) Not Detected (Not Detectd) RSV (PCR) Not Detected (Not Detectd) SARS-CoV-2 (PCR) Not Detected (Not Detectd) Group A Strep (PCR) NOT DETECTED (Not Detectd) Disposition Clinical Impression: Upper respiratory tract infection Disposition: HOME SELF-CARE Condition: Stable Instructions (If sedation given, give patient instructions): Upper Respiratory Infection (ED) Additional Instructions: [id number] vitamin C, vitamin D and zinc. [id number] Tylenol or Motrin as needed. Return for fevers, difficulty breathing, increased throat pain, worsening or changing symptoms or other concerns. Is patient prescribed a controlled substance at d/c from ED?: No Referrals: Justin Fields MD [Primary Care Provider] - 1-2 days Time of Disposition: 12:03
[2023-11-29 09:50] VITALS: RESP 18; TEMP 97.5
[2023-11-29 12:10] VITALS: BP 119/84; PULSE 78
== END 2023-11-29 12:10 | disposition home or self-care (01) ==
LOC: EC 09:17
CPT/HCPCS: 81025; 87636; 87651; 99282

== ENCOUNTER → 2024-05-05 | Outpatient (CLI) | payer OTHER ==
[2024-05-05 15:13] LABS: HCT 31.6 % (37.2-46.3); HGB 10.5 g/dL (12.0-15.0); MCH 29.9 pg (27.0-32.0); MCHC 33.2 g/dL (32.0-37.0); NRBC Per 100 WBC 0 X 10*3/uL (0.00-0.01); Platelet Count 228 X 10*3/uL (140-440); RBC 3.51 X 10*6/uL (4.10-5.20); RDW 13.8 % (11.5-14.5); WBC 6.44 X 10*3/uL (4.50-10.00)
[2024-05-05 18:07] LABS: HIV 2 AB Non-Reactive (Non-Reactive); HIV AB P24 Non-Reactive (Non-Reactive); HIV P24 AG Non-Reactive (Non-Reactive)
== END | disposition home or self-care (01) ==
LOC: LABWHC1 10:45
PROVIDERS: ATTEND Obstetrics & Gynecology
DX: Z36.9 Encounter for antenatal screening, unspecified (principal)
CPT/HCPCS: 36415; 82950; 85027; 86780; 87340; 87390

== ENCOUNTER 2024-05-23 15:51 | Outpatient (CLI) | payer OTHER ==
[2024-05-23] MEDS: ACETAMINOPHEN TAB 500 MG TAB PO STA (16:53)
[2024-05-23 16:54] VITALS: BP 118/73; PULSE 111; RESP 18; TEMP 97.2
[2024-05-23] MEDS: LACTATED RINGERS 1,000 ML IV ONE (16:54)
--- NOTE | 2024-06-17 20:35 | P.MSEPDOC ---
Presenting Problems - Arrival Data Date of Arrival on Unit: 05/23/24 Time of Arrival on Unit: 15:51 Mode of Transport: Ambulatory - Complaint OB-Reason for Admission/Chief Complaint: Acute Nausea/Vomiting, Headache, Dizziness Comment: pt reporting symptoms started Friday05/21/24. Medical History - Information : 5 Para: 3 Term: 3 : 0 Abortions: Spontaneous or Elective: 1 Number of Living Children: 3 - Gestational Age Gestational Age by MEGHANA (wks/days): 30 Weeks and 2 Days Review of Systems - Review of Systems Constitutional: No problems Breast: No problems ENT: No problems Cardiovascular: No problems Respiratory: No problems Gastrointestinal: No problems Genitourinary: No problems Musculoskeletal: No problems Neurological: Dizziness Skin: No problems Vital Signs - Temperature Temperature: 97.2 F Temperature Source: Temporal Artery Scan - Pulse Pulse Oximetery Pulse Rate: 111 Pulse Assessment Method: Pulse Oximetry - Respirations Respiratory Rate: 18 Oxygen Delivery Method: Room Air O2 Sat by Pulse Oximetry: 98 - Blood Pressure Right Arm Blood Pressure: 118/73 Blood Pressure Mean: 88 Blood Pressure Source: Automatic Cuff Medical Screen Scoring - Cervical Exam Membranes: Intact - Uterine Contractions Resting: Soft to palpation - Assessment - Baby A Baseline FHR: 135 Heart Rate - NICHD Category: Category I (Normal) NST: Reactive Physician Notification - Physician Notified Physician Notified Date: 05/23/24 Physician Notified Time: 16:37 Physician: Dr. [place]caho New Order Received: Yes - Notification Comment Comment: Offer 1 liter IV LR hydration and PO 1000 mg tylenol or d/c home with increase oral hydration and PO OTC tylenol as directed. PT chose IV and PO medication in triage at this time. IV hydration completed at 1727. IV d/c pt tolerated well. Dishcarge paper given and reviewed with pt. No s/s of ditress noted. Encouraged to keep next apt in office on 06/02/24. Maternal Triage Index - Maternal Triage Index Presenting for scheduled procedure w/no complaint: No - Stat/Priority 1 Stat Priority 1: No - Urgent/Priority 2 Urgent Priority 2: No - Prompt/Priority 3 Prompt Priority 3: No - Non-Urgent/Priority 4 Non-Urgent Priority 4: Yes Criteria Met for Priority 4: c/o lightheaded, dizzy, nausea, and headache star ting since friday07/21/24. Disposition - Disposition OB Disposition: Triage, Discharge to home Discharge Date: 05/23/24 Discharge Time: 17:30 I agree with the RN Medical Screening Exam: Yes Case reviewed; plan agreed upon as documented in EMR&OBIX.: Yes Diagnosis: DEHYDRATION
== END 2024-05-23 17:30 | disposition home or self-care (01) ==
LOC: FBPOP 15:51
PROVIDERS: ATTEND Obstetrics & Gynecology Obstetrics
DX: O26.893 Other specified pregnancy related conditions, third trimester (principal); E86.0 Dehydration; Z87.891 Personal history of nicotine dependence; Z88.1 Allergy status to other antibiotic agents; Z88.8 Allergy status to other drugs, medicaments and biological substances; Z3A.30 30 weeks gestation of pregnancy
CPT/HCPCS: 59025; 96360; G0463; 99213; 99214

== ENCOUNTER 2024-07-14 19:46 | Outpatient (CLI) | payer OTHER ==
[2024-07-14 20:55] VITALS: BP 114/63; PULSE 107; RESP 18; TEMP 96.8
--- NOTE | 2024-08-23 10:19 | P.MSEPDOC ---
Presenting Problems - Arrival Data Date of Arrival on Unit: 07/14/24 Time of Arrival on Unit: 19:46 Mode of Transport: Ambulatory - Complaint OB-Reason for Admission/Chief Complaint: Possible Onset of Labor Comment: Patient presents to triage with complaints of low back pain and contractions Medical History - Information : 4 Para: 3 Term: 3 : 0 Abortions: Spontaneous or Elective: 0 Number of Living Children: 3 - Gestational Age Gestational Age by MEGHANA (wks/days): 37 Weeks and 5 Days Review of Systems - Review of Systems Constitutional: No problems Breast: No problems ENT: No problems Cardiovascular: No problems Respiratory: No problems Gastrointestinal: No problems Genitourinary: No problems Musculoskeletal: No problems Neurological: No problems Skin: No problems Vital Signs - Temperature Temperature: 96.8 F Temperature Source: Temporal Artery Scan - Pulse Pulse Oximetery Pulse Rate: 107 Pulse Assessment Method: Pulse Oximetry - Respirations Respiratory Rate: 18 Oxygen Delivery Method: Room Air O2 Sat by Pulse Oximetry: 100 - Blood Pressure Right Arm Blood Pressure: 114/63 Blood Pressure Mean: 80 Blood Pressure Source: Automatic Cuff Physician Notification - Physician Notified Physician Notified Date: 07/14/24 Physician Notified Time: 20:10 Physician: Nikole Falcon Order Received: Yes (Disharge to home) Maternal Triage Index - Stat/Priority 1 Stat Priority 1: No - Urgent/Priority 2 Urgent Priority 2: No - Prompt/Priority 3 Prompt Priority 3: No - Non-Urgent/Priority 4 Non-Urgent Priority 4: Yes Criteria Met for Priority 4: Patient presents to triage with complaints of low back pain and contractions Disposition - Disposition OB Disposition: Discharge to home Discharge Date: 07/14/24 Discharge Time: 20:55 I agree with the RN Medical Screening Exam: Yes Case reviewed; plan agreed upon as documented in EMR&OBIX.: Yes Diagnosis: FALSE LABOR AT OR AFTER 37 COMPLETED WEEKS OF GESTATION
== END 2024-07-14 20:56 ==
LOC: FBPOP 19:46
PROVIDERS: ATTEND Obstetrics & Gynecology
DX: O47.1 False labor at or after 37 completed weeks of gestation (principal); Z3A.37 37 weeks gestation of pregnancy; Z88.1 Allergy status to other antibiotic agents; Z88.8 Allergy status to other drugs, medicaments and biological substances; Z87.891 Personal history of nicotine dependence
CPT/HCPCS: 59025; G0463; 99213

== ENCOUNTER 2024-07-17 18:59 | Emergency (ER) | payer OTHER ==
[2024-07-17 19:07] VITALS: TEMP 99.4
--- NOTE | 2024-07-17 19:23 | ED ---
General Adult HPI - General Chief complaint: Dizziness Stated complaint: Dizzy/Headache/Sweats(38 Weeks ) Time Seen by Provider: 07/17/24 19:11 Source: patient, family Mode of arrival: ambulatory Limitations: no limitations - History of Present Illness Initial comments: Patient is a -0-0-3 at 38 weeks gestation who presents to the ED with her boyfriend for evaluation. Patient states that she has had a headache and has felt "warm and cold" over the past couple of days. Patient states that she had preeclampsia with one of her pregnancies, and given these symptoms, she has come to the ED to rule out preeclampsia. Patient denies measured fever. Patient admits to having a mild cough at times. Patient denies head injury, sudden onset of headache, focal numbness/weakness/neuro deficit, visual changes, speech difficulty,, neck pain or stiffness, sore throat, chest pain, dyspnea, abdominal/pelvic pain, back or flank pain, vaginal leakage of fluids, vaginal bleeding, dysuria/hematuria/urinary frequency/urinary symptoms, leg or calf swelling or pain, or any other symptoms or complaints. - Related Data Home Medications Medication Instructions Recorded Confirmed Iron 18 mg PO DAILY 07/04/22 07/14/24 Aspirin [[place] Aspirin EC] 1 tab PO DAILY 05/23/24 07/14/24 Previous Rx's Medication Instructions Recorded Clindamycin [Cleocin] 150 mg PO Q6H #40 capsule 01/14/23 Amoxic-Pot Clav 875-125Mg 1 tab PO Q12HR 10 Days #20 tab 03/04/23 [Augmentin 875-125] Ibuprofen 800 mg PO Q8H PRN #30 tab 03/04/23 Amoxic-Pot Clav 875-125Mg 1 tab PO Q12HR 7 Days #14 tab 07/17/24 [Augmentin 875-125] Allergies Allergy/AdvReac Type Severity Reaction Status Date / Time sertraline [From Zoloft] Allergy Severe Rash/Hives Verified 07/17/24 19:07 cephalexin [From Keflex] Allergy Rash/Hives Verified 07/17/24 19:07 Review of Systems ROS Statement: Those systems with pertinent positive or pertinent negative responses have been documented in the HPI. ROS Other: All systems not noted in ROS Statement are negative. Past Medical History Past Medical History: No Reported History History of Any Multi-Drug Resistant Organisms: None Reported Past Surgical History: No Surgical Hx Reported Additional Past Surgical History / Comment(s): "lazy" eye surgery Past Anesthesia/Blood Transfusion Reactions: No Reported Reaction Past Psychological History: No Psychological Hx Reported Smoking Status: Never smoker Past Alcohol Use History: None Reported Past Drug Use History: None Reported - Past Family History Mother Family Medical History: No Reported History Father Family Medical History: No Reported History General Exam Limitations: no limitations General appearance: alert, in no apparent distress Head exam: Present: atraumatic, normocephalic Eye exam: Present: normal appearance, PERRL, EOMI ENT exam: Present: normal oropharynx, mucous membranes moist Neck exam: Present: other (No nuchal rigidity or meningeal signs are present on exam). Absent: tenderness, meningismus Respiratory exam: Present: normal lung sounds bilaterally. Absent: respiratory distress, wheezes, rales, rhonchi, stridor Cardiovascular Exam: Present: regular rate, normal rhythm, normal heart sounds, other (Normal radial pulses bilaterally) GI/Abdominal exam: Present: soft, other (Gravid abdomen). Absent: tenderness, guarding Extremities exam: Absent: tenderness, pedal edema, calf tenderness Back exam: Absent: CVA tenderness (R), CVA tenderness (L) Neurological exam: Present: alert, oriented X3, CN II-XII intact. Absent: motor sensory deficit Skin exam: Present: warm, dry, normal color Course Vital Signs 07/17/24 07/17/24 19:04 20:43 Temperature 99.4 F Pulse Rate 97 89 Respiratory 19 18 Rate Blood Pressure 126/89 109/58 O2 Sat by Pulse 97 97 Oximetry - Reevaluation(s) Reevaluation #1: 07/17/24 21:16 Case, H&P and test results were discussed with Dr. Medina (DISTRICT GAUGER). She agrees with starting the patient on a course of antibiotics given her UA findings and discharging the patient home. She has no further recommendations at this time. 07/17/24 21:36 Patient denies development of any new symptoms while in the ED. Patient's blood pressure readings/vital signs have been within normal limits while in the ED. Patient is aware of her test results and my discussion with Dr. Medina as above. Patient feels comfortable being discharged home at this time. She was counseled about headaches and UTIs in . She was clearly explained return and follow-up instructions. She was instructed to follow-up closely with her DISTRICT GAUGER doctor. She feels comfortable with this plan. Medical Decision Making - Medical Decision Making Was pt. sent in by a medical professional or institution (BRODY Nunez, AFTER SCHOOL PROGRAM DIRECTOR, urgent care, hospital, or half-way...) When possible be specific @ -No Did you speak to anyone other than the patient for history (EMS, parent, family, police, friend...)? What history was obtained from this source @ -No Did you review nursing and triage notes (agree or disagree)? Why? @ -I reviewed and agree with nursing and triage notes Were old charts reviewed (outside hosp., previous admission, EMS record, old EKG, old radiological studies, urgent care reports/EKG's, half-way records)? Report findings @ -No old charts were reviewed Differential Diagnosis (chest pain, altered mental status, abdominal pain women, abdominal pain men, vaginal bleeding, weakness, fever, dyspnea, syncope, headache, dizziness, GI bleed, back pain, seizure, CVA, palpatations, mental health, musculoskeletal)? @ -Headache, migraine, tension headache, anxiety, preeclampsia, , electrolyte abnormality, dehydration, UTI, HELLP syndrome, this is not meant to be a complete list. EKG interpreted by me (3pts min.). @ -None done X-rays interpreted by me (1pt min.). @ -None done CT interpreted by me (1pt min.). @ -None done U/S interpreted by me (1pt. min.). @ -None done What testing was considered but not performed or refused? (CT, X-rays, U/S, labs)? Why? @ -None What meds were considered but not given or refused? Why? @ -None Did you discuss the management of the patient with other professionals (pr ofessionals i.e. BRODY Nunez, AFTER SCHOOL PROGRAM DIRECTOR, lab, RT, psych nurse, social sciences professor, tafe lecturer, teacher, front desk officer, social work case manager)? Give summary @ -As above. Was smoking cessation discussed for >3mins.? @ -No Was critical care preformed (if so, how long)? @ -No Were there social determinants of health that impacted care today? How? (Homelessness, low income, unemployed, alcoholism, drug addiction, transportatio n, low edu. Level, literacy, decrease access to med. care, assisted, rehab)? @ -No Was there de-escalation of care discussed even if they declined (Discuss DNR or withdrawal of care, Hospice)? DNR status @ -No What co-morbidities impacted this encounter? (DM, HTN, Smoking, COPD, CAD, Cancer, CVA, ARF, Chemo, Hep., AIDS, mental health diagnosis, sleep apnea, morbid obesity)? @ -None Was patient admitted / discharged? Hospital course, mention meds given and route, prescriptions, significant lab abnormalities, going to OR and other pertinent info. @ -Patient's blood pressure readings/vital signs have been within normal limits while in the ED. Patient has no evidence of HELLP syndrome on laboratory evaluation. Patient's UA is suggestive of a possible UTI. I do not suspect an emergent medical condition at this time. Case was discussed with the on-call DISTRICT GAUGER doctor (Dr. Medina) who agrees with the plan to discharge the patient home on a course of antibiotics. Patient feels comfortable with this plan. Strict return and follow-up instructions were provided Undiagnosed new problem with uncertain prognosis? @ -No Drug Therapy requiring intensive monitoring for toxicity (Heparin, Nitro, Insulin, Cardizem)? @ -No Were any procedures done? @ -No Diagnosis/symptom? @ -, headache, UTI Acute, or Chronic, or Acute on Chronic? @ -Default Uncomplicated (without systemic symptoms) or Complicated (systemic symptoms)? @ -Default Side effects of treatment? @ -No Exacerbation, Progression, or Severe Exacerbation? @ -No Poses a threat to life or bodily function? How? (Chest pain, [place], [place], pneumonia, PE, COPD, DKA, ARF, appy, cholecystitis, CVA, Diverticulitis, Homicidal, Suicidal, threat to staff... and all critical care pts) @ -No - Lab Data Result diagrams: 07/17/24 19:29 07/17/24 19:29 Lab Results 07/17/24 07/17/24 07/17/24 Range/Units 19:29 19:29 19:29 WBC 9.58 (4.50-10.00) 10*3/uL RBC 3.75 L (4.10-5.20) 10*6/uL Hgb 10.5 L (12.0-15.0) g/dL Hct 31.7 L (37.2-46.3) % MCV 84.5 (80.0-97.0) fL MCH 28.0 (27.0-32.0) pg MCHC 33.1 (32.0-37.0) g/dL Plt Count 184 (140-440) 10*3/uL MPV 10.7 (9.5-12.2) fL Immature Gran % (Auto) 0.5 % Neutrophils % 82.6 % Lymphocytes % 11.5 % Monocytes % 5.3 % Eosinophils % 0.0 % Basophils % 0.1 % Immature Gran # 0.05 H (0.00-0.04) 10*3/uL Neutrophils # 7.91 H (1.80-7.70) 10*3/uL Lymphocytes # 1.10 (0.90-5.00) 10*3/uL Monocytes # 0.51 (0.20-1.00) 10*3/uL Eosinophils # 0.00 L (0.04-0.35) 10*3/uL Basophils # 0.01 (0.00-0.10) 10*3/uL Sodium 132 L (137-145) mmol/L Potassium 4.0 (3.5-5.1) mmol/L Chloride 102 (98-107) mmol/L Carbon Dioxide 16 L (22-30) mmol/L Anion Gap 14 mmol/L BUN 9 (7-17) mg/dL Creatinine 0.62 (0.52-1.04) mg/dL Est GFR (CKD-EPI)AfAm >90 (>60 ml/min/1.73 sqM) Est GFR (CKD-EPI)NonAf >90 (>60 ml/min/1.73 sqM) Glucose 74 (74-99) mg/dL Calcium 9.6 (8.4-10.2) mg/dL Total Bilirubin 0.9 (0.2-1.3) mg/dL AST 20 (14-36) U/L ALT 12 (4-34) U/L Alkaline Phosphatase 305 H (38-126) U/L Total Protein 7.0 (6.3-8.2) g/dL Albumin 3.8 (3.5-5.0) g/dL Urine Color Light Yellow Urine Appearance Turbid H (Clear) Urine pH 5.5 (5.0-8.0) Ur Specific [place] 1.014 (1.001-1.035) Urine Protein Trace H (Negative) Urine Glucose (UA) Negative (Negative) Urine Ketones 4+ H (Negative) Urine Blood Small H (Negative) Urine Nitrite Negative (Negative) Urine Bilirubin Negative (Negative) Urine Urobilinogen <2.0 (<2.0) mg/dL Ur Leukocyte Esterase Large H (Negative) Urine RBC 9 H (0-5) /hpf Urine WBC >182 H (0-5) /hpf Ur Squamous Epith Cells 8 H (0-4) /hpf Urine Bacteria Occasional H (None) /hpf Urine Mucus Rare H (None) /hpf Influenza Type A (PCR) (Not Detectd) Influenza Type B (PCR) (Not Detectd) RSV (PCR) (Not Detectd) SARS-CoV-2 (PCR) (Not Detectd) 07/17/24 Range/Units 19:44 WBC (4.50-10.00) 10*3/uL RBC (4.10-5.20) 10*6/uL Hgb (12.0-15.0) g/dL Hct (37.2-46.3) % MCV (80.0-97.0) fL MCH (27.0-32.0) pg MCHC (32.0-37.0) g/dL Plt Count (140-440) 10*3/uL MPV (9.5-12.2) fL Immature Gran % (Auto) % Neutrophils % % Lymphocytes % % Monocytes % % Eosinophils % % Basophils % % Immature Gran # (0.00-0.04) 10*3/uL Neutrophils # (1.80-7.70) 10*3/uL Lymphocytes # (0.90-5.00) 10*3/uL Monocytes # (0.20-1.00) 10*3/uL Eosinophils # (0.04-0.35) 10*3/uL Basophils # (0.00-0.10) 10*3/uL Sodium (137-145) mmol/L Potassium (3.5-5.1) mmol/L Chloride (98-107) mmol/L Carbon Dioxide (22-30) mmol/L Anion Gap mmol/L BUN (7-17) mg/dL Creatinine (0.52-1.04) mg/dL Est GFR (CKD-EPI)AfAm (>60 ml/min/1.73 sqM) Est GFR (CKD-EPI)NonAf (>60 ml/min/1.73 sqM) Glucose (74-99) mg/dL Calcium (8.4-10.2) mg/dL Total Bilirubin (0.2-1.3) mg/dL AST (14-36) U/L ALT (4-34) U/L Alkaline Phosphatase (38-126) U/L Total Protein (6.3-8.2) g/dL Albumin (3.5-5.0) g/dL Urine Color Urine Appearance (Clear) Urine pH (5.0-8.0) Ur Specific [place] (1.001-1.035) Urine Protein (Negative) Urine Glucose (UA) (Negative) Urine Ketones (Negative) Urine Blood (Negative) Urine Nitrite (Negative) Urine Bilirubin (Negative) Urine Urobilinogen (<2.0) mg/dL Ur Leukocyte Esterase (Negative) Urine RBC (0-5) /hpf Urine WBC (0-5) /hpf Ur Squamous Epith Cells (0-4) /hpf Urine Bacteria (None) /hpf Urine Mucus (None) /hpf Influenza Type A (PCR) Not Detected (Not Detectd) Influenza Type B (PCR) Not Detected (Not Detectd) RSV (PCR) Not Detected (Not Detectd) SARS-CoV-2 (PCR) Not Detected (Not Detectd) Disposition Clinical Impression: Headache, , UTI (urinary tract infection) Disposition: HOME SELF-CARE Condition: Stable Instructions (If sedation given, give patient instructions): (ED), Urinary Tract Infection in Women (ED), Acute Headache (ED) Additional Instructions: Return to the ER immediately should you develop new or worsening pain, abdominal or pelvic pain, leakage of vaginal fluids, vaginal bleeding, a fever, feeling dizzy or faint, shortness of breath, or new or worsening symptoms. Follow-up closely with your DISTRICT GAUGER doctor. Prescriptions: Amoxic-Pot Clav 875-125Mg [Augmentin 875-125] 1 tab PO Q12HR 7 Days #14 tab Is patient prescribed a controlled substance at d/c from ED?: No Referrals: Justin Fields MD [Primary Care Provider] - 1-2 days Charlotte Medina MD [STAFF PHYSICIAN] - 1-2 days Time of Disposition: 21:40
[2024-07-17] MEDS: ACETAMINOPHEN TAB 500 MG TAB PO STA (19:41)
[2024-07-17 19:49] LABS: Basophils # (A) 0.01 10*3/uL (0.00-0.10); Basophils % (A) 0.1 %; HCT 31.7 % (37.2-46.3); HGB 10.5 g/dL (12.0-15.0); Lymphocytes % (A) 11.5 %; MCHC 33.1 g/dL (32.0-37.0); MCV 84.5 fL (80.0-97.0); Mean Platelet Volume 10.7 fL (9.5-12.2); Monocytes # (A) 0.51 10*3/uL (0.20-1.00); Monocytes % (A) 5.3 %; Neutrophils # (A) 7.91 10*3/uL (1.80-7.70); Neutrophils % (A) 82.6 %; Platelet Count 184 10*3/uL (140-440); RBC 3.75 10*6/uL (4.10-5.20); RDW 14.4 % (11.5-14.5); WBC 9.58 10*3/uL (4.50-10.00)
[2024-07-17 19:54] LABS: ALT 12 U/L (4-34); AST 20 U/L (14-36); African American GFR (CKD) >90 (>60 ml/min/1.73 sqM); Albumin 3.8 g/dL (3.5-5.0); Alkaline Phosphatase 305 U/L (38-126); Anion Gap 14 mmol/L; Blood Urea Nitrogen 9 mg/dL (7-17); Calcium 9.6 mg/dL (8.4-10.2); Carbon Dioxide 16 mmol/L (22-30); Chloride 102 mmol/L (98-107); Glucose 74 mg/dL (74-99); Non-African American GFR(CKD) >90 (>60 ml/min/1.73 sqM); Sodium 132 mmol/L (137-145); Total Bilirubin 0.9 mg/dL (0.2-1.3)
[2024-07-17 20:30] LABS: Appearance,Urine Turbid (Clear); Bacteria,Urine Occasional /hpf; Bilirubin,Urine Negative (Negative); Blood,Urine Small (Negative); Color,Urine Light Yellow; Glucose,Urine (UA) Negative (Negative); Ketones,Urine 4+ (Negative); Leukocyte Esterase,Urine Large (Negative); Mucus,Urine Rare /hpf; Nitrite,Urine Negative (Negative); PH, Urine 5.5 (5.0-8.0); Protein,Urine Trace (Negative); RBC,Urine 9 /hpf (0-5); Specific Gravity,Urine 1.014 (1.001-1.035); Squamous Epithelial Cell,Urine 8 /hpf (0-4); Urobilinogen,Urine <2.0 mg/dL (<2.0); WBC,Urine >182 /hpf (0-5)
[2024-07-17 20:44] VITALS: RESP 18
[2024-07-17 20:55] LABS: Influenza A Not Detected (Not Detectd); Influenza B Not Detected (Not Detectd); RSV Not Detected (Not Detectd)
[2024-07-17] MEDS: AMOXIC-POT CLAV 875-125MG 1 EACH TAB PO STA (22:38)
[2024-07-17 22:40] VITALS: BP 119/79; PULSE 80
== END 2024-07-18 00:43 | disposition home or self-care (01) ==
LOC: EC 18:59
DX: O23.43 Unspecified infection of urinary tract in pregnancy, third trimester (principal); O99.353 Diseases of the nervous system complicating pregnancy, third trimester; R51.9 Headache, unspecified; Z88.1 Allergy status to other antibiotic agents; Z88.8 Allergy status to other drugs, medicaments and biological substances; Z3A.38 38 weeks gestation of pregnancy
CPT/HCPCS: 36415; 80053; 81001; 85025; 87086; 87636; 99284

== ENCOUNTER 2024-07-26 02:53 | Inpatient (IN) | payer OTHER ==
[2024-07-26] MEDS ORDERED: CARBOPROST TROMETHAMINE 250 MCG/ML 1 ML AMP IM PRN (03:14)
[2024-07-26] MEDS ORDERED: miSOPROStoL 200 MCG TAB RECTAL PRN (03:14)
[2024-07-26] MEDS ORDERED: OXYTOCIN 10 UNIT/ML 1 ML VIAL IM PRN (03:14)
[2024-07-26] MEDS ORDERED: METHYLERGONOVINE 0.2 MG/ML 1 ML AMP IM PRN (03:14)
[2024-07-26] MEDS ORDERED: miSOPROStoL 200 MCG TAB PO PRN (03:14)
[2024-07-26] MEDS ORDERED: TRANEXAMIC 1,000 MG/100ML-NACL 1,000 MG in EMPTY BAG 1 BAG IV PRN (03:14)
[2024-07-26] MEDS ORDERED: TERBUTALINE 1 MG/ML VIAL SQ PRN (03:14)
[2024-07-26] MEDS ORDERED: LIDOCAINE 0.5% (PF) 5 MG/ML (50 ML SDV) SQ PRN (03:14)
[2024-07-26] MEDS: OXYTOCIN 30 UNITS/500 ML NS 30 UNIT in SALINE 1 500ML.BAG IV SCH (03:25)
[2024-07-26 03:38] VITALS: RESP 16
[2024-07-26] MEDS ORDERED: BENZOCAINE/MENTHOL SPRAY 1 GM/SPRAY AEROSOL TOPICAL PRN (03:43)
[2024-07-26] MEDS ORDERED: LANOLIN CREAM 1 GM TUBE TOPICAL PRN (03:43)
[2024-07-26] MEDS ORDERED: SIMETHICONE 80 MG CHEWABLE PO PRN (03:43)
[2024-07-26] MEDS ORDERED: diphenhydrAMINE 50 MG/ML 1 ML VIAL IVP PRN ×2 (03:43)
[2024-07-26] MEDS ORDERED: HYDROCORTISONE 2.5% RECTAL CREAM 30 GM TUBE RECTAL PRN (03:43)
[2024-07-26] MEDS ORDERED: diphenhydrAMINE 25 MG CAP PO PRN (03:43)
[2024-07-26] MEDS ORDERED: diphenhydrAMINE 50 MG CAP PO PRN (03:43)
[2024-07-26] MEDS ORDERED: ZOLPIDEM 5 MG TAB PO PRN (03:43)
[2024-07-26] MEDS ORDERED: OXYTOCIN 30 UNITS/500 ML NS 30 UNIT in SALINE 1 500ML.BAG IV SCH (03:45)
[2024-07-26 03:50] LABS: Basophils # (A) 0.03 10*3/uL (0.00-0.10); Basophils % (A) 0.3 %; Eosinophils # (A) 0.02 10*3/uL (0.04-0.35); Eosinophils % (A) 0.2 %; HCT 32.1 % (37.2-46.3); HGB 10.6 g/dL (12.0-15.0); Lymphocytes # (A) 3.48 10*3/uL (0.90-5.00); Lymphocytes % (A) 39.1 %; MCH 28.1 pg (27.0-32.0); MCV 85.1 fL (80.0-97.0); Monocytes # (A) 0.55 10*3/uL (0.20-1.00); Monocytes % (A) 6.2 %; Neutrophils # (A) 4.71 10*3/uL (1.80-7.70); Neutrophils % (A) 53.1 %; Platelet Count 244 10*3/uL (140-440); RBC 3.77 10*6/uL (4.10-5.20); RDW 14.6 % (11.5-14.5); WBC 8.89 10*3/uL (4.50-10.00)
--- NOTE | 2024-07-26 03:56 | P.HPOB ---
History of Present Illness H&P Date: 07/26/24 Chief Complaint: 39+ weeks, active precipitous labor The patient is a 28-year-old 5 para last menstrual period and confirmed by second trimester ultrasound. She is admitted in active labor with all signs reassuring. On admission, she was 7 to 8 cm dilated and had spontaneous rupture of membranes at first check your has been essentially uncomplicated and group B strep status is negative. Following rupture of membranes, she progressed very quickly to complete and felt the urge to push at which time I was called. Group B strep status is negative. She was scheduled for induction this morning. Obstetrical history: 5 para 1-2-1-3 term deliveries and 1 term delivery without complications current statistics are listed in history of present illness. EDC of 07/30/2024 was established by last menstrual period and confirmed by second trimester ultrasound. Laboratory workup demonstrates a blood type of O+ with status is immune. The remainder of the laboratory workup was within normal limits aside from hepatitis B surface antigen which demonstrated nonimmune status. Early Glucola and second trimester glucose are within normal limits. Group B strep status is negative. Gynecologic history: Unremarkable with no history of any infections to include STDs. Review of Systems Review of systems is confined to history of present illness. Past Medical History Past Medical History: No Reported History History of Any Multi-Drug Resistant Organisms: None Reported Past Surgical History: No Surgical Hx Reported Additional Past Surgical History / Comment(s): "lazy" eye surgery Past Anesthesia/Blood Transfusion Reactions: No Reported Reaction Past Psychological History: No Psychological Hx Reported Smoking Status: Never smoker Past Alcohol Use History: None Reported Past Drug Use History: None Reported - Past Family History Mother Family Medical History: No Reported History Father Family Medical History: No Reported History Medications and Allergies Allergies Allergy/AdvReac Type Severity Reaction Status Date / Time sertraline [From Zoloft] Allergy Severe Rash/Hives Verified 07/26/24 03:13 cephalexin [From Keflex] Allergy Rash/Hives Verified 07/26/24 03:13 Exam Vital Signs Pulse Resp BP Pulse Ox 07/26/24 03:33 70 16 131/71 98 Intake and Output 07/25/24 07/25/24 07/26/24 14:59 22:59 06:59 Output Total 150 Balance -150 Output: Output, Quantitative 150 Blood Loss Other: Weight 88.451 kg In general, this is a well-developed, well-nourished white female in no acute distress having just delivered. Her heart has a regular rhythm and rate without murmur. Her lungs are clear to auscultation bilateral in all fung. Her abdomen is nondistended, has normal active bowel sounds, soft, nontender, and without any palpable masses, and the fundus is tonic and nontender below the umbilicus. Her extremities are without any cyanosis, clubbing, or edema and are nontender to palpation bilaterally. Vaginal examination demonstrates no lacerations of the perineum, vagina, or cervix. Assessment and Plan (1) Precipitous delivery Current Visit: Yes Status: Acute Code(s): O62.3 - PRECIPITATE LABOR SNOMED Code(s): 35930699 (2) Normal spontaneous vaginal delivery Current Visit: Yes Status: Acute Code(s): O80 - ENCOUNTER FOR FULL-TERM UNCOMPLICATED DELIVERY SNOMED Code(s): 16703719 (3) Active labor at term Current Visit: Yes Status: Acute Code(s): QWS1175 - SNOMED Code(s): 65787983 Plan: The patient is status post precipitous vaginal delivery and is comfortable in the state. There is no active bleeding. The infant is comfortable as it is the patient in recovery.
--- NOTE | 2024-07-26 04:02 | P.PROBDLV ---
Vaginal Delivery Note - . Vaginal Delivery Note: The patient is a 28-year-old 5 para 1-2-1-3 who presented to labor and delivery in active labor at 39+ weeks as established by good dating parameters she presented at 7+ centimeters dilated at which time she had spontaneous rupture of membranes for clear fluid. Her was essentially uncomplicated and group B strep status was negative. She progressed very rapidly to complete at which time I was called, and began involuntarily pushing while I was in transit. She pushed to a normal spontaneous vaginal delivery of a viable 7 pound 4 ounce baby boy with Apgars of 9 at 1 minute and 9 at 5 minutes. Placenta delivered spontaneously prior to my arrival. I arrived just after placental delivery at which time the perineum was inspected and there was no evidence of any lacerations. Estimated blood loss for the case was approximately 150 mL. There were no complications aside from the precipitous nature of the delivery. All sponge, instrument, and needle counts were correct. Both mother and are resting comfortably in recovery.
[2024-07-26] MEDS: IBUPROFEN 800 MG TAB PO PRN (04:08)
[2024-07-26] MEDS: LACTATED RINGERS 1,000 ML IV SCH (04:09)
[2024-07-26] MEDS: ONDANSETRON 4 MG/2 ML VIAL IVP PRN (04:38)
[2024-07-26] MEDS: SENNOSIDES-DOCUSATE SODIUM 1 EACH TAB PO SCH (07:47)
[2024-07-26] MEDS: ACETAMINOPHEN TAB 500 MG TAB PO PRN (07:47)
[2024-07-26] MEDS: ACETAMINOPHEN IV (For NPO) 1,000 MG in EMPTY BAG 1 BAG IVPB ONE (20:23)
--- NOTE | 2024-07-27 07:51 | P.DS ---
Providers Date of admission: 07/26/24 02:53 Expected date of discharge: 07/27/24 Attending physician: Charlotte Medina MD Primary care physician: [facility] Course: The patient is doing well this morning and had no acute events overnight. She has no complaints this morning. She reports minimal lochia, passing flatus, voiding without difficulty, ambulating, and eating/drinking without nausea or vomiting. Infant doing well at bedside, s/p circumcision. She denies chest pain, shortness of breathing, fevers, or chills overnight. She denies pain or swelling in the legs. Postoperative restrictions are reviewed with the patient including pelvic rest for 6 weeks, no lifting heavier than 15 pounds for 6 weeks. The patient is encouraged to call the office if she experiences any heavy bleeding, foul-smelling discharge, breast complaints, or any if she has any other concerns. She will follow up in the office with in 6 weeks for postoperative exam. All questions are answered. Patient Condition at Discharge: Good Plan - Discharge Summary Follow up Appointment(s)/Referral(s): Charlotte Medina MD [STAFF PHYSICIAN] - 09/06/24 11:30 am Activity/Diet/Wound Care/Special Instructions: Instructions 1. Do not begin any exercise program for 3 weeks. 2. Do not resume sexual relations for 6 weeks or longer if uncomfortable. 3. You may take tub baths or showers at any time. 4. You may use tampons if desired after 6 weeks. 5. Keep any areas repaired with stitches clean and dry. 6. If you are not nursing, wear a good fitting, supportive bra during the day and limit fluid intake for at least 1 week to prevent breast engorgement. 7. Call the office, , within the next week to make appointment for your 6 week checkup if it has not already been made. 8. Report any of the following occurrences to the doctor promptly: a. Heavy, excessive bleeding b. Chills, fever c. Burning or frequency of urination d. Pain or redness and breasts if nursing e. Increasing pain or swelling of vulva (stitches). In addition to the above instructions, the following additional should be followed: 1. No heavy lifting or straining (exercising) until after 6 week checkup. 2. Keep abdominal incision clean and dry: You may wear a dressing if more comfortable. 3. Make office appointment for 2 weeks after delivery date. Discharge Disposition: HOME SELF-CARE
[2024-07-27 09:04] LABS: Basophils # (A) 0.02 10*3/uL (0.00-0.10); Basophils % (A) 0.3 %; Eosinophils # (A) 0.02 10*3/uL (0.04-0.35); Eosinophils % (A) 0.3 %; HCT 28.2 % (37.2-46.3); Lymphocytes # (A) 2.67 10*3/uL (0.90-5.00); Lymphocytes % (A) 34.1 %; MCH 28.6 pg (27.0-32.0); MCHC 31.9 g/dL (32.0-37.0); MCV 89.5 fL (80.0-97.0); Mean Platelet Volume 11.1 fL (9.5-12.2); Monocytes # (A) 0.38 10*3/uL (0.20-1.00); Monocytes % (A) 4.9 %; Neutrophils # (A) 4.68 10*3/uL (1.80-7.70); Neutrophils % (A) 59.8 %; Platelet Count 182 10*3/uL (140-440); RBC 3.15 10*6/uL (4.10-5.20); RDW 15.2 % (11.5-14.5); WBC 7.82 10*3/uL (4.50-10.00)
[2024-07-27 09:05] VITALS: BP 139/80; PULSE 64; TEMP 97.5
== END 2024-07-27 11:30 | disposition home or self-care (01) | DRG 560 ==
LOC: 4FBP 02:53
PROVIDERS: ADMIT Obstetrics & Gynecology; ATTEND Obstetrics & Gynecology
PROC: 10E0XZZ Delivery of Products of Conception, External Approach (ICD-10-PCS; principal; 2024-07-26)
DX: O42.92 Full-term premature rupture of membranes, unspecified as to length of time between rupture and onset of labor (principal); O62.3 Precipitate labor; Z37.0 Single live birth; Z3A.39 39 weeks gestation of pregnancy; Z88.1 Allergy status to other antibiotic agents; Z88.8 Allergy status to other drugs, medicaments and biological substances
CPT/HCPCS: 85025; 86850; 86900; 86901

== ENCOUNTER 2024-10-05 16:44 | Emergency (ER) | payer OTHER ==
[2024-10-05 17:21] VITALS: RESP 20
--- NOTE | 2024-10-05 17:22 | ED ---
ENT HPI - General Source: patient, RN notes reviewed Mode of arrival: ambulatory Limitations: no limitations <Moise Soliz - Last Filed: 10/05/24 17:20> <Milagro Muniz - Last Filed: 10/05/24 19:58> - General Stated complaint: Post op oral pain Time Seen by Provider: 10/05/24 16:57 - History of Present Illness Initial comments: Quick note: This is a 28-year-old female presenting for postsurgical dental pain (10/17) x 4 days. Patient endorses left wisdom teeth being removed with subsequent socket pain despite use of ibuprofen. (Moise Soliz) 28-year-old female present with chief complaint of dental pain. Patient had her wisdom teeth removed 4 days ago. She has been taking ibuprofen and is on anti biotics. She was seen by her dentist who told her that she had no further issue. No fever. No trismus. No difficulty breathing or swallowing. She is just complaining of continued pain, particularly worse in the left side (Milagro Muniz) - Related Data Allergies Allergy/AdvReac Type Severity Reaction Status Date / Time sertraline [From Zoloft] Allergy Severe Rash/Hives Verified 07/26/24 03:13 cephalexin [From Keflex] Allergy Rash/Hives Verified 07/26/24 03:13 Review of Systems ROS Other: All systems not noted in ROS Statement are negative. <Moise Soliz - Last Filed: 10/05/24 17:20> ROS Other: All systems not noted in ROS Statement are negative. <Milagro Muniz - Last Filed: 10/05/24 19:58> ROS Statement: Those systems with pertinent positive or pertinent negative responses have been documented in the HPI. Past Medical History Past Medical History: No Reported History Additional Past Medical History / Comment(s): preeclampsia 1st baby History of Any Multi-Drug Resistant Organisms: None Reported Past Surgical History: No Surgical Hx Reported Additional Past Surgical History / Comment(s): "lazy" eye surgery Past Anesthesia/Blood Transfusion Reactions: No Reported Reaction Past Psychological History: No Psychological Hx Reported Smoking Status: Never smoker Past Alcohol Use History: None Reported Past Drug Use History: None Reported - Past Family History Mother Family Medical History: No Reported History Father Family Medical History: No Reported History <Moise Soliz - Last Filed: 10/05/24 17:20> General Exam <Moise Soliz - Last Filed: 10/05/24 17:20> General appearance: alert, in no apparent distress Head exam: Present: atraumatic, normocephalic, normal inspection Eye exam: Present: normal appearance, EOMI. Absent: periorbital swelling ENT exam: Present: normal oropharynx, mucous membranes moist Neck exam: Present: normal inspection. Absent: meningismus Respiratory exam: Absent: respiratory distress, stridor Cardiovascular Exam: Present: regular rate Neurological exam: Present: alert, oriented X3 Psychiatric exam: Present: normal affect, normal mood Skin exam: Present: warm, dry, normal color <Milagro Muniz - Last Filed: 10/05/24 19:58> - General Exam Comments Initial Comments: Visual Physical Exam Vital signs reviewed General: Well-appearing, nontoxic, no acute distress. Head: Normocephalic, atraumatic Eyes: PERRLA, EOMI ENT: Airway patent Chest: Nonlabored breathing Skin: No visual rash, normal skin tone Neuro: Alert and oriented 3 Musculoskeletal: No gross abnormalities (Moise Soliz) Course Vital Signs 10/05/24 10/05/24 17:18 18:08 Temperature 98.1 F 98 F Pulse Rate 109 H 89 Respiratory 20 20 Rate Blood Pressure 106/69 108/72 O2 Sat by Pulse 99 99 Oximetry Medical Decision Making <Moise Soliz - Last Filed: 10/05/24 17:20> <Milagro Muniz - Last Filed: 10/05/24 19:58> - Medical Decision Making I completed the quick note portion of this chart signed SUREKHA Bueno (Moise Soliz) Was pt. sent in by a medical professional or institution ([facility] Nunez, [facility], urgent care, hospital, or assisted...) When possible be specific @ -No Did you speak to anyone other than the patient for history (EMS, parent, family, police, friend...)? What history was obtained from this source @ -No Did you review nursing and triage notes (agree or disagree)? Why? @ -I reviewed and agree with nursing and triage notes Were old charts reviewed (outside hosp., previous admission, EMS record, old EKG, old radiological studies, urgent care reports/EKG's, assisted records)? Report findings @ -No old charts were reviewed Differential Diagnosis (chest pain, altered mental status, abdominal pain women, abdominal pain men, vaginal bleeding, weakness, fever, dyspnea, syncope, headache, dizziness, GI bleed, back pain, seizure, CVA, palpatations, mental health, musculoskeletal)? @ -Differential includes toothache, dental abscess, Louis's angina, not an all-inclusive list EKG interpreted by me (3pts min.). @ -As above X-rays interpreted by me (1pt min.). @ -None done CT interpreted by me (1pt min.). @ -None done U/S interpreted by me (1pt. min.). @ -None done What testing was considered but not performed or refused? (CT, X-rays, U/S, labs)? Why? @ -None What meds were considered but not given or refused? Why? @ -None Did you discuss the management of the patient with other professionals (professionals i.e. , PA, [facility], lab, RT, psych nurse, manager social media, brim curler, teacher, loan review officer, case specialist)? Give summary @ -No Was smoking cessation discussed for >3mins.? @ -No Was critical care preformed (if so, how long)? @ -No Were there social determinants of health that impacted care today? How? (Homelessness, low income, unemployed, alcoholism, drug addiction, transportation, low edu. Level, literacy, decrease access to med. care, fci, rehab)? @ -No Was there de-escalation of care discussed even if they declined (Discuss DNR or withdrawal of care, Hospice)? DNR status @ -No What co-morbidities impacted this encounter? (DM, HTN, Smoking, COPD, CAD, Cancer, CVA, ARF, Chemo, Hep., AIDS, mental health diagnosis, sleep apnea, morbid obesity)? @ -None Was patient admitted / discharged? Hospital course, mention meds given and route, prescriptions, significant lab abnormalities, going to OR and other pertinent info. @ -28-year-old female presenting with chief complaint of dental pain. She had her wisdom teeth removed recently. Was seen by her dentist, provided with ibuprofen and antibiotics. On examination I see no evidence of abscess. Patient provided with pain medication for home. Instructed to continue taking medications prescribed by her dentist and to follow-up with her dentist. Report back to ER with any new or worsening symptoms. Discussed return parameters and answered all questions. Patient conveyed verbal understanding and agreed to the plan. I discussed this case in detail with my attending Dr. Lazcano Undiagnosed new problem with uncertain prognosis? @ -No Drug Therapy requiring intensive monitoring for toxicity (Heparin, Nitro, Insulin, Cardizem)? @ -No Were any procedures done? @ -No Diagnosis/symptom? @ -Toothache Acute, or Chronic, or Acute on Chronic? @ -Acute Uncomplicated (without systemic symptoms) or Complicated (systemic symptoms)? @ -Uncomplicated Side effects of treatment? @ -No Exacerbation, Progression, or Severe Exacerbation? @ -No Poses a threat to life or bodily function? How? (Chest pain, [place], [place], pneumonia, PE, COPD, DKA, ARF, appy, cholecystitis, CVA, Diverticulitis, Homicidal, Suicidal, threat to staff... and all critical care pts) @ -Unlikely (Milagro Muniz) Disposition <Moise Soliz - Last Filed: 10/05/24 17:20> Is patient prescribed a controlled substance at d/c from ED?: No Time of Disposition: 17:45 <Milagro Muniz - Last Filed: 10/05/24 19:58> Clinical Impression: Toothache Disposition: HOME SELF-CARE Condition: Good Instructions (If sedation given, give patient instructions): Toothache (ED) Additional Instructions: Follow-up with your dentist. Report back to ER with any new or worsening symptoms. Continue taking your antibiotics. Referrals: Justin Fields MD [Primary Care Provider] - 1-2 days
[2024-10-05] MEDS: Acetaminophen-Codeine 300-30mg TAB PO STA (17:57)
[2024-10-05] MEDS: ACET/COD 300 MG/30 MG STARTER PACK TAB BTL PO STA (17:58)
[2024-10-05 18:10] VITALS: BP 108/72; PULSE 89; TEMP 98
== END 2024-10-05 18:08 | disposition home or self-care (01) ==
LOC: EC 16:44
DX: K08.89 Other specified disorders of teeth and supporting structures (principal); Z88.1 Allergy status to other antibiotic agents; Z88.8 Allergy status to other drugs, medicaments and biological substances
CPT/HCPCS: 99282